=== PATIENT | male | born 1965 | race African-American/Black ===

== ENCOUNTER 2023-01-29 17:30 | Inpatient (IN) | payer MEDICARE, MEDICAID, SELFPAY ==
--- NOTE | ~2023-01-29 | CT_ITS ---
EXAMINATION: CTA CHEST PE STUDY, CT ABDOMEN AND PELVIS CLINICAL INFORMATION: Abdominal pain GI bleeding. + dimer cp COMPARISON: No pertinent prior studies are available for comparison. TECHNIQUE: Prior to contrast administration, noncontrast localization images were obtained. After the administration of 100 mL of Omnipaque nonionic IV contrast, contiguous thin slice helical images were obtained through the thorax. Following this the examination was continued through the abdomen and then pelvis. Reformatted MIP images in the coronal and sagittal planes as well as thin slice reformatted images of coronal and sagittal planes were obtained at the acquisition workstation. This CT examination was performed using dose optimization techniques as appropriate, variously including the following: *Automated exposure control *Adjustment of mA and/or kV according to patient size (this includes techniques or standardized protocols for targeted exams where dose is matched to indication/reason for exam; i.e. extremities or head) *Use of iterative reconstruction technique DLP: 684 mGy-cm. FINDINGS: CHEST: The bolus timing on this study was suboptimal for visualization of the pulmonary arterial tree. Despite the limitation of the contrast bolus timing, there was no central intraluminal pulmonary arterial filling defects present to suggest central pulmonary embolism. The branch vessels are unable to be delineated adequately on the study and remain indeterminate The lungs are clear. No abnormal pulmonary nodules or masses are appreciated. No significant hilar or mediastinal adenopathy. There is no evidence of pleural effusion or pneumothorax. The heart is normal in size. No evidence of ventricular septal bowing or right heart strain. The mediastinum and great vessels are normal. There is no pericardial effusion or pericardial thickening. Bilateral gynecomastia noted. ABDOMEN/PELVIS: Liver, Gallbladder and Biliary Tree: Diffuse fatty infiltration of the liver but no focal hepatic lesion nor biliary ductal dilatation. The gallbladder is unremarkable with no evidence of radiopaque gallstones, gallbladder wall thickening, or obvious pericholecystic inflammatory changes. Pancreas: Unremarkable. Spleen: Unremarkable. Adrenal Glands: Unremarkable. Kidneys and Ureters: The kidneys are normal in size, shape, and attenuation. No hydronephrosis, hydroureter, or calculi seen. No perinephric stranding. Bladder: Unremarkable. Gastrointestinal Tract: Although decompressed, there is a suggestion of colonic wall thickening diffusely from the rectum to the ascending colon. Infectious or inflammatory colitis would be favored. There is scattered diverticulosis but no obvious focal diverticulitis. Visualized small bowel is grossly unremarkable. Normal-appearing appendix in the right lower quadrant. Abdominal Wall: No significant hernia is appreciated. Lymphovascular Structures: Mild vascular calcification in the aorta. No bulky adenopathy Pelvic Viscera: Unremarkable. Osseous Structures: Marked degenerative changes in the hips. Multilevel degenerative changes in the spine. CT/CT abdomen pelvis w IV con IMPRESSION: 1. Although decompressed, there is a suggestion of diffuse colonic wall thickening from the rectum to the ascending colon. Infectious or inflammatory colitis would be favored. 2. Diverticulosis but no obvious diverticulitis. 3. Significantly fatty infiltrated liver. 4. Limited evaluation of the pulmonary arterial tree due to the suboptimal bolus timing. Despite this limitation, there is no central pulmonary emboli seen. Peripheral branches are not able to be assessed. VTE: Negative
--- NOTE | ~2023-01-29 | XR_ITS ---
EXAMINATION: PORTABLE CHEST 1 VIEW CLINICAL INFORMATION: chest pain . COMPARISON: No recent pertinent prior studies are available for comparison. TECHNIQUE: Portable frontal view of the chest was obtained. FINDINGS: The lungs are well expanded. No focal infiltrate, effusion, edema, or pneumothorax. Cardiac and mediastinal silhouettes are within normal limits for technique. No acute bony abnormality seen. XR/XR chest 1V IMPRESSION: No evidence of acute disease.
--- NOTE | 2023-01-29 17:33 | ED_ITS ---
HPI - Chest Pain General Chief Complaint: General Medical <AVLEINO Alford - Last Filed: 01/29/23 17:41> Stated Complaint: chest pain/ sob <AVELINO Alford - Last Filed: 01/29/23 17:41> Time Seen by Provider: 01/29/23 17:33 <AVELINO Alford - Last Filed: 01/29/23 17:41> Source: patient and family <AVELINO Robles - Last Filed: 01/29/23 22:29> Mode of arrival: ambulatory <AVELINO Robles - Last Filed: 01/29/23 22:29> Limitations: no limitations <AVELINO Robles - Last Filed: 01/29/23 22:29> History of Present Illness HPI narrative: This is a 57-year-old male presenting to the emergency department multiple complaints patient complains of tremors, chest pain, shortness of breath, fatigue, malaise, body aches and pains, acute alcohol intoxication and blood in stool. Patient tells me he is having substernal nonradiating intermittent chest pain he me the stabbing pain, at times movement makes it better however other times nothing makes it better. Patient reports associated shortness of breath both at rest and with exertion. He tells me he is having diffuse body aches and pains and he is also shaking. Patient tells me that he has been drinking a lot lately he tells me he drinks 10 mixed drinks a day, last drink just prior to arrival, no history of alcohol withdrawal or delirium tremens. Also tells me that he has noticed bright red blood per rectum wipes to him before. Past call ago and unremarkable. Patient tells me he is drinking because it helps him feel better. Denies suicidal and homicidal ideation. Patient denies fevers, chills, nausea vomiting, abdominal pain, headache, vision changes, dizziness and weakness. <AVELINO Robles Last Filed: 01/29/23 22:29> Related Data Allergies/Adverse Reactions: Allergies Allergy/AdvReac Type Severity Reaction Status Date / Time No Known Allergies Allergy Verified 01/29/23 17:33 <AVELINO Alford - Last Filed: 01/29/23 17:41> Review of Systems Review of Systems: Constitutional : No Weight loss, No Fever, No Chills, + Fatigue, + Malaise ENT/Mouth : No sore throat, No Rhinorrhea Eyes: No Eye Pain, No Swelling, No Redness Cardiovascular : + Chest Pain, + SOB, + Dyspnea on Exertion, No Orthopnea, No Edema, No Palpitations Respiratory : No Cough, No Sputum, No Wheezing Gastrointestinal : No Nausea, No Vomiting, No Diarrhea, No Constipation, No abdominal Pain, No Hematochezia, No Melena Genitourinary : No Dysuria, No Urinary Frequency, No Hematuria, + blood in stool Musculoskeletal : No joint pain, + Myalgias, No Joint Swelling Skin : No Skin Lesions, No rash Neuro : No Weakness, No Numbness, No Dizziness, No Headache Psych : No Anxiety/Panic, No Depression All other systems reviewed and are negative <AVELINO Robles - Last Filed: 01/29/23 22:29> Yes all other systems are reviewed and are negative <AVELINO Robles - Last Filed: 01/29/23 22:29> [facility] Past Medical History Attestation statement: The following information was validated with the patient. <AVELINO Robles - Last Filed: 01/29/23 22:29> Source: old records reviewed and nursing notes reviewed <AVELINO Robles - Last Filed: 01/29/23 22:29> Social History Social History: Social History Alcohol intake: current Alcohol intake frequency: 3 or more drinks per day Alcohol type: hard liquor Smoked in Last 30 Days: No Use of substances other than those prescribed or required for medical reasons: Yes Substance Use Type: Marijuana Substance Use Frequency: Chronic Longstanding Advance Directives: No Advance Directives Information Provided: Yes <AVELINO Alford - Last Filed: 01/29/23 17:41> Physical Exam Vital Signs: Vital Signs: Last Vital Signs Temp 98.1 F 01/29/23 17:34 Pulse 105 H 01/29/23 17:34 Resp 18 01/29/23 17:34 BP 173/108 H 01/29/23 17:34 Pulse Ox 98 01/29/23 17:34 O2 Del Method 01/29/23 17:34 BMI result Body Mass Index 26.0 <AVELINO Alford - Last Filed: 01/29/23 17:41> Vital Signs: Last Vital Signs Temp 98.1 F 01/29/23 17:34 Pulse 105 H 01/29/23 17:34 Resp 18 01/29/23 17:34 BP 173/108 H 01/29/23 17:34 Pulse Ox 98 01/29/23 17:34 O2 Del Method 01/29/23 17:34 BMI result Body Mass Index 26.0 vss <AVELINO Robles - Last Filed: 01/29/23 22:29> Appearance: Alert.? Oriented X3.? No acute distress.? Patient anxious and mild diaphoresis. Head: Normocephalic, atraumatic, no step-offs or deformities Eyes: Pupils equal, round and reactive to light.? ENT: Pharynx normal.? Tongue fasciculations noted. Neck: Normal inspection.? Neck supple.? CVS: Rapid rate normal rhythm likely sinus tachycardia? Pulses normal.? Respiratory: No respiratory distress.? Breath sounds normal.? Abdomen: Soft and nontender.? Skin: Skin warm and dry.? Normal skin color.? Normal skin turgor.? Extremities: No lower extremity edema.? No calf ttp. 5/5 strength to bilateral upper and lower extremities tremor stopper and lower extremities. Rectal: loose brown stool in rectal vault unable to appreciate internal or external hemorrhoids. No gauri blood noted on [facility] Neuro: Oriented X 3.? No motor deficit.? No sensory deficit. CN 2-12 intact <AVELINO Robles - Last Filed: 01/29/23 22:29> Course Course Course Narrative: RME - 57 yo male with history of alcohol abuse (about 15 gin drinks per day), history of ETOH withdrawal, HTN, DM who presents to the ER for evaluation of intermittent central non-radiating chest pains x1 week, generalized weakness x1-2 weeks and blood in his stool on/off for a long time. Drank alcohol today to try to make his chest pain better. Was vomiting today as well. Hasn't eaten in 1-2 days. Also endorses as SOB. Hypertensive and tachycardic in triage. Plan: EKG, CXR, labs, coags <AVELINO Alford - Last Filed: 01/29/23 17:41> Reevaluation(s) Reevaluation #1: CBC with a normocytic anemia. Troponin 10.6 EKG nonischemic however demonstrating a prolonged QT, unlikely ACS. BNP within normal limits. Ethanol level 120. Chest x-ray without evidence of acute disease. Flu COVID RSV negative. OBS positive. Patient's CIWA 6 after Ativan. Chemistry, UA and D- dimer pending. <AVELINO Robles - Last Filed: 01/29/23 22:29> Time: 19:46 <AVELINO Robles - Last Filed: 01/29/23 22:29> Reevaluation #2: Chemistry with low potassium 3.0 will give oral potassium at this time. Patient is noted to have elevated anion gap likely secondary to ethanol. Total bilirubin 1.3, obtain CT of the abdomen and pelvis. Transaminases elevated likely secondary to ethanol. Troponin not meeting delta criteria, EKG nonischemic unlikely ACS. CTA limited secondary to suboptimal bolus timing however no signs of large centralized PE, low suspicion for PE in general. Diverticulosis but no diverticulitis. Fatty infiltrated liver noted. Diffuse colonic wall thickening from the rectum to the ascending colon. I do not suspect inflammatory or infectious colitis however. Patient not tender to palpation of abdomen. Discuss this case with hospitalist who will admit patient <AVELINO Robles - Last Filed: 01/29/23 22:29> Time: 22:27 <AVELINO Robles - Last Filed: 01/29/23 22:29> Medications Administered Generic Name Dose Route Start Last Admin Trade Name Freq PRN Reason Stop Dose Admin Folic Acid 1 mg 01/29/23 21:15 01/29/23 21:10 Folic Acid 1 Mg Tablet PO 02/01/23 21:14 1 mg DAILY JACKIE Administration Lactated Ringer's 1,000 mls @ 100 mls/hr 01/29/23 21:15 01/29/23 21:39 Lr IVCONT 100 mls/hr .Q10H JACKIE Administration Multivitamins/Vitamin C 1 tab 01/29/23 21:15 01/29/23 21:10 Multivitamin Tablet PO 02/01/23 21:14 1 tab DAILY JACKIE Administration Pantoprazole Sodium 40 mg 01/29/23 21:05 01/29/23 21:39 Pantoprazole Sodium 40 Mg/10 Ml Vial IVPUSH 40 mg BID@0630,1630 JACKIE Administration Thiamine HCl 100 mg 01/29/23 21:15 01/29/23 21:10 Thiamine Hcl 100 Mg Tablet PO 02/01/23 21:14 100 mg DAILY JACKIE Administration Discontinued Medications Generic Name Dose Route Start Last Admin Trade Name Margarita PRN Reason Stop Dose Admin Iohexol 100 ml 01/29/23 21:30 01/29/23 21:30 Iohexol 350 Mg/Ml 100 Ml Infus..Btl IV 01/29/23 21:31 85 ml ONCE ONE Administration Iohexol 100 ml 01/29/23 21:40 01/29/23 21:41 Iohexol 350 Mg/Ml 100 Ml Infus..Btl IV 01/29/23 21:41 85 ml ONCE ONE Administration Lorazepam 1 mg 01/29/23 18:36 01/29/23 18:47 Lorazepam 1 Mg Tablet PO 01/29/23 18:37 1 mg ONCE ONE Administration Phenobarbital Sodium 255 mg 01/29/23 20:15 01/29/23 20:42 Phenobarbital Sodium 130 Mg/Ml Im Once IM 01/29/23 20:16 255 mg ONCE ONE Administration <AVELINO Alford - Last Filed: 01/29/23 17:41> Medications Administered Generic Name Dose Route Start Last Admin Trade Name Margarita PRN Reason Stop Dose Admin Folic Acid 1 mg 01/29/23 21:15 01/29/23 21:10 Folic Acid 1 Mg Tablet PO 02/01/23 21:14 1 mg DAILY JACKIE Administration Lactated Ringer's 1,000 mls @ 100 mls/hr 01/29/23 21:15 01/29/23 21:39 Lr IVCONT 100 mls/hr .Q10H JACKIE Administration Multivitamins/Vitamin C 1 tab 01/29/23 21:15 01/29/23 21:10 Multivitamin Tablet PO 02/01/23 21:14 1 tab DAILY JACKIE Administration Pantoprazole Sodium 40 mg 01/29/23 21:05 01/29/23 21:39 Pantoprazole Sodium 40 Mg/10 Ml Vial IVPUSH 40 mg BID@0630,1630 JACKIE Administration Thiamine HCl 100 mg 01/29/23 21:15 01/29/23 21:10 Thiamine Hcl 100 Mg Tablet PO 02/01/23 21:14 100 mg DAILY JACKIE Administration Discontinued Medications Generic Name Dose Route Start Last Admin Trade Name Margarita PRN Reason Stop Dose Admin Iohexol 100 ml 01/29/23 21:30 01/29/23 21:30 Iohexol 350 Mg/Ml 100 Ml Infus..Btl IV 01/29/23 21:31 85 ml ONCE ONE Administration Iohexol 100 ml 01/29/23 21:40 01/29/23 21:41 Iohexol 350 Mg/Ml 100 Ml Infus..Btl IV 01/29/23 21:41 85 ml ONCE ONE Administration Lorazepam 1 mg 01/29/23 18:36 01/29/23 18:47 Lorazepam 1 Mg Tablet PO 01/29/23 18:37 1 mg ONCE ONE Administration Phenobarbital Sodium 255 mg 01/29/23 20:15 01/29/23 20:42 Phenobarbital Sodium 130 Mg/Ml Im Once IM 01/29/23 20:16 255 mg ONCE ONE Administration <AVELINO Robles - Last Filed: 01/29/23 22:29> Medical Decision Making Medical Decision Making [facility] Narrative: 1835 57-year-old male presents with fatigue, malaise, myalgias, chest pain, shortness of breath, rectal bleeding, acute alcohol intoxication. Physical exam with upper extremity tremors, tongue fasciculations. Rapid regular rhythm likely sinus tachycardia. Breath sounds clear. Abdomen soft nontender nondistended. Neuro nonfocal CIWA-9 Likely acute alcohol withdrawal. Unlikely ACS, PE however will rule out. Will also rule out polysubstance abuse. Will rule out lower GI bleed. No signs of acute abdomen. Plan at this time labs, OBS, imaging, ethanol, POWELL. <AVELINO Robles Last Filed: 01/29/23 22:29> Differential Diagnosis Differential Diagnoses: The differential diagnosis associated with the presentation includes <AVELINO Robles Last Filed: 01/29/23 22:29> Likely acute alcohol withdrawal. Unlikely ACS, PE however will rule out. Will also rule out polysubstance abuse. Will rule out lower GI bleed. No signs of acute abdomen. <AVELINO Robles - Last Filed: 01/29/23 22:29> Admission/Observation Consideration of admission/observation: Escalation of care including admission/observation considered <AVELINO Robles - Last Filed: 01/29/23 22:29> Likely <AVELINO Robles - Last Filed: 01/29/23 22:29> Consult Healthcare Provider Management of the patient was discussed with: Hospitalist (Dr. Solares) <AVELINO Robles - Last Filed: 01/29/23 22:29> Lab Data MDM Lab Attestation statement: I reviewed the patient's lab results. <AVELINO Robles - Last Filed: 01/29/23 22:29> Result Diagrams: 01/29/23 18:14 01/29/23 18:14 <AVELINO Alford - Last Filed: 01/29/23 17:41> Labs: Lab Results 01/29/23 01/29/23 01/29/23 Range/Units 18:14 18:14 18:14 WBC 6.6 (4.8-10.8) X10*3/uL RBC 3.90 L (4.60-5.80) X10*6/uL Hgb 13.0 L (14.0-18.0) g/dl Hct 38.0 L (42.0-52.0) % MCV 97.4 (80.0-98.0) fL MCH 33.3 H (27.0-33.0) pg MCHC 34.2 (31.0-36.0) g/dl RDW 14.2 (11.0-16.0) % Plt Count 156 L (160-400) X10*3/uL MPV 9.9 (9.4-12.4) fL Immature Gran % (Auto) 0.5 H (0.0-0.4) % Neut % (Auto) 79.8 H (45-73) % Lymph % (Auto) 12.8 L (20-40) % [place] % (Auto) 6.3 (2-11) % Eos % (Auto) 0.3 (0-4) % Baso % (Auto) 0.3 (0-2) % Lymph # (Auto) 0.9 L (1.2-4.9) X10*3/uL [place] # (Auto) 0.4 (0.1-1.2) X10*3/uL Eos # (Auto) 0.0 (0.0-0.4) X10*3/uL Baso # (Auto) 0.0 (0.0-0.2) X10*3/uL Abs Immat Gran (auto) 0.03 (0.00-0.03) X10*3/uL Absolute Neuts (auto) 5.3 (2.0-8.3) x10*3/uL Absolute Nucleated RBC 0.020 H (0.0-0.012) X10*3/uL Nucleated RBC % (auto) 0.3 H (0.0-0.2) /100WBC PT 10.6 (10.0-13.1) SEC INR 0.9 (0.9-1.1) APTT 33.0 (26.0-36.4) SEC D-Dimer High Sensitivty 603 NG/ML Sodium (135-145) mmol/L Potassium (3.3-5.1) mmol/L Chloride (96-108) mmol/L Carbon Dioxide (22-29) mmol/L Anion Gap (12-20) BUN (9-16) mg/dL Creatinine (0.5-1.4) mg/dL Estim Creat Clear Calc Estimated GFR POC Glucose (60-115) mg/dL Random Glucose (60-115) mg/dL Calcium (8.4-10.2) mg/dL Magnesium (1.6-2.6) mg/dL Total Bilirubin (0.0-1.0) mg/dL Direct Bilirubin (0.0-0.5) mg/dL AST (5-37) U/L ALT (0-40) U/L Alkaline Phosphatase (39-117) U/L Total Creatine Kinase (38-174) U/L Troponin I High Sens 10.6 (<3.5-35.0) ng/L B-Natriuretic Peptide (<100) pg/mL Total Protein (6.5-8.0) g/dL Albumin (3.5-5.0) g/dL Lipase (8-78) U/L TSH (0.32-4.0) uIU/mL Stool Occult Blood (NEGATIVE) Ethyl Alcohol mg/dL Influenza Type A (PCR) (Negative) Influenza Type B (PCR) (Negative) RSV RNA Qual (PCR) (Negative) SARS-CoV-2 RNA (RT-PCR) (Negative) 01/29/23 01/29/23 01/29/23 Range/Units 18:14 18:14 18:14 WBC (4.8-10.8) X10*3/uL RBC (4.60-5.80) X10*6/uL Hgb (14.0-18.0) g/dl Hct (42.0-52.0) % MCV (80.0-98.0) fL MCH (27.0-33.0) pg MCHC (31.0-36.0) g/dl RDW (11.0-16.0) % Plt Count (160-400) X10*3/uL MPV (9.4-12.4) fL Immature Gran % (Auto) (0.0-0.4) % Neut % (Auto) (45-73) % Lymph % (Auto) (20-40) % [place] % (Auto) (2-11) % Eos % (Auto) (0-4) % Baso % (Auto) (0-2) % Lymph # (Auto) (1.2-4.9) X10*3/uL [place] # (Auto) (0.1-1.2) X10*3/uL Eos # (Auto) (0.0-0.4) X10*3/uL Baso # (Auto) (0.0-0.2) X10*3/uL Abs Immat Gran (auto) (0.00-0.03) X10*3/uL Absolute Neuts (auto) (2.0-8.3) x10*3/uL Absolute Nucleated RBC (0.0-0.012) X10*3/uL Nucleated RBC % (auto) (0.0-0.2) /100WBC PT (10.0-13.1) SEC INR (0.9-1.1) APTT Cancelled (26.0-36.4) SEC D-Dimer High Sensitivty NG/ML Sodium (135-145) mmol/L Potassium (3.3-5.1) mmol/L Chloride (96-108) mmol/L Carbon Dioxide (22-29) mmol/L Anion Gap (12-20) BUN (9-16) mg/dL Creatinine (0.5-1.4) mg/dL Estim Creat Clear Calc Estimated GFR POC Glucose (60-115) mg/dL Random Glucose (60-115) mg/dL Calcium (8.4-10.2) mg/dL Magnesium (1.6-2.6) mg/dL Total Bilirubin (0.0-1.0) mg/dL Direct Bilirubin (0.0-0.5) mg/dL AST (5-37) U/L ALT (0-40) U/L Alkaline Phosphatase (39-117) U/L Total Creatine Kinase (38-174) U/L Troponin I High Sens (<3.5-35.0) ng/L B-Natriuretic Peptide < 10 (<100) pg/mL Total Protein (6.5-8.0) g/dL Albumin (3.5-5.0) g/dL Lipase (8-78) U/L TSH 1.33 (0.32-4.0) uIU/mL Stool Occult Blood (NEGATIVE) Ethyl Alcohol 120 mg/dL Influenza Type A (PCR) (Negative) Influenza Type B (PCR) (Negative) RSV RNA Qual (PCR) (Negative) SARS-CoV-2 RNA (RT-PCR) (Negative) 01/29/23 01/29/23 01/29/23 Range/Units 18:14 18:26 19:19 WBC (4.8-10.8) X10*3/uL RBC (4.60-5.80) X10*6/uL Hgb (14.0-18.0) g/dl Hct (42.0-52.0) % MCV (80.0-98.0) fL MCH (27.0-33.0) pg MCHC (31.0-36.0) g/dl RDW (11.0-16.0) % Plt Count (160-400) X10*3/uL MPV (9.4-12.4) fL Immature Gran % (Auto) (0.0-0.4) % Neut % (Auto) (45-73) % Lymph % (Auto) (20-40) % [place] % (Auto) (2-11) % Eos % (Auto) (0-4) % Baso % (Auto) (0-2) % Lymph # (Auto) (1.2-4.9) X10*3/uL [place] # (Auto) (0.1-1.2) X10*3/uL Eos # (Auto) (0.0-0.4) X10*3/uL Baso # (Auto) (0.0-0.2) X10*3/uL Abs Immat Gran (auto) (0.00-0.03) X10*3/uL Absolute Neuts (auto) (2.0-8.3) x10*3/uL Absolute Nucleated RBC (0.0-0.012) X10*3/uL Nucleated RBC % (auto) (0.0-0.2) /100WBC PT (10.0-13.1) SEC INR (0.9-1.1) APTT (26.0-36.4) SEC D-Dimer High Sensitivty NG/ML Sodium 141 (135-145) mmol/L Potassium 3.0 L (3.3-5.1) mmol/L Chloride 90 L (96-108) mmol/L Carbon Dioxide 15 L (22-29) mmol/L Anion Gap 39 H (12-20) BUN 12 (9-16) mg/dL Creatinine 0.87 (0.5-1.4) mg/dL Estim Creat Clear Calc 83.5 Estimated GFR > 60 POC Glucose (60-115) mg/dL Random Glucose 83 (60-115) mg/dL Calcium 9.0 (8.4-10.2) mg/dL Magnesium 2.0 (1.6-2.6) mg/dL Total Bilirubin 1.3 H (0.0-1.0) mg/dL Direct Bilirubin 0.5 (0.0-0.5) mg/dL AST 201 H (5-37) U/L ALT 78 H (0-40) U/L Alkaline Phosphatase 145 H (39-117) U/L Total Creatine Kinase 158 (38-174) U/L Troponin I High Sens (<3.5-35.0) ng/L B-Natriuretic Peptide (<100) pg/mL Total Protein 7.9 (6.5-8.0) g/dL Albumin 4.8 (3.5-5.0) g/dL Lipase 30 (8-78) U/L TSH (0.32-4.0) uIU/mL Stool Occult Blood POSITIVE (NEGATIVE) Ethyl Alcohol mg/dL Influenza Type A (PCR) NEGATIVE (Negative) Influenza Type B (PCR) NEGATIVE (Negative) RSV RNA Qual (PCR) NEGATIVE (Negative) SARS-CoV-2 RNA (RT-PCR) NEGATIVE (Negative) 01/29/23 01/29/23 Range/Units 19:19 21:37 WBC (4.8-10.8) X10*3/uL RBC (4.60-5.80) X10*6/uL Hgb (14.0-18.0) g/dl Hct (42.0-52.0) % MCV (80.0-98.0) fL MCH (27.0-33.0) pg MCHC (31.0-36.0) g/dl RDW (11.0-16.0) % Plt Count (160-400) X10*3/uL MPV (9.4-12.4) fL Immature Gran % (Auto) (0.0-0.4) % Neut % (Auto) (45-73) % Lymph % (Auto) (20-40) % [place] % (Auto) (2-11) % Eos % (Auto) (0-4) % Baso % (Auto) (0-2) % Lymph # (Auto) (1.2-4.9) X10*3/uL [place] # (Auto) (0.1-1.2) X10*3/uL Eos # (Auto) (0.0-0.4) X10*3/uL Baso # (Auto) (0.0-0.2) X10*3/uL Abs Immat Gran (auto) (0.00-0.03) X10*3/uL Absolute Neuts (auto) (2.0-8.3) x10*3/uL Absolute Nucleated RBC (0.0-0.012) X10*3/uL Nucleated RBC % (auto) (0.0-0.2) /100WBC PT (10.0-13.1) SEC INR (0.9-1.1) APTT (26.0-36.4) SEC D-Dimer High Sensitivty NG/ML Sodium (135-145) mmol/L Potassium (3.3-5.1) mmol/L Chloride (96-108) mmol/L Carbon Dioxide (22-29) mmol/L Anion Gap (12-20) BUN (9-16) mg/dL Creatinine (0.5-1.4) mg/dL Estim Creat Clear Calc Estimated GFR POC Glucose 138 H (60-115) mg/dL Random Glucose (60-115) mg/dL Calcium (8.4-10.2) mg/dL Magnesium (1.6-2.6) mg/dL Total Bilirubin (0.0-1.0) mg/dL Direct Bilirubin (0.0-0.5) mg/dL AST (5-37) U/L ALT (0-40) U/L Alkaline Phosphatase (39-117) U/L Total Creatine Kinase (38-174) U/L Troponin I High Sens 11.9 (<3.5-35.0) ng/L B-Natriuretic Peptide (<100) pg/mL Total Protein (6.5-8.0) g/dL Albumin (3.5-5.0) g/dL Lipase (8-78) U/L TSH (0.32-4.0) uIU/mL Stool Occult Blood (NEGATIVE) Ethyl Alcohol mg/dL Influenza Type A (PCR) (Negative) Influenza Type B (PCR) (Negative) RSV RNA Qual (PCR) (Negative) SARS-CoV-2 RNA (RT-PCR) (Negative) <AVELINO Alford - Last Filed: 01/29/23 17:41> Lab Results 01/29/23 01/29/23 01/29/23 Range/Units 18:14 18:14 18:14 WBC 6.6 (4.8-10.8) X10*3/uL RBC 3.90 L (4.60-5.80) X10*6/uL Hgb 13.0 L (14.0-18.0) g/dl Hct 38.0 L (42.0-52.0) % MCV 97.4 (80.0-98.0) fL MCH 33.3 H (27.0-33.0) pg MCHC 34.2 (31.0-36.0) g/dl RDW 14.2 (11.0-16.0) % Plt Count 156 L (160-400) X10*3/uL MPV 9.9 (9.4-12.4) fL Immature Gran % (Auto) 0.5 H (0.0-0.4) % Neut % (Auto) 79.8 H (45-73) % Lymph % (Auto) 12.8 L (20-40) % [place] % (Auto) 6.3 (2-11) % Eos % (Auto) 0.3 (0-4) % Baso % (Auto) 0.3 (0-2) % Lymph # (Auto) 0.9 L (1.2-4.9) X10*3/uL [place] # (Auto) 0.4 (0.1-1.2) X10*3/uL Eos # (Auto) 0.0 (0.0-0.4) X10*3/uL Baso # (Auto) 0.0 (0.0-0.2) X10*3/uL Abs Immat Gran (auto) 0.03 (0.00-0.03) X10*3/uL Absolute Neuts (auto) 5.3 (2.0-8.3) x10*3/uL Absolute Nucleated RBC 0.020 H (0.0-0.012) X10*3/uL Nucleated RBC % (auto) 0.3 H (0.0-0.2) /100WBC PT 10.6 (10.0-13.1) SEC INR 0.9 (0.9-1.1) APTT 33.0 (26.0-36.4) SEC D-Dimer High Sensitivty 603 NG/ML Sodium (135-145) mmol/L Potassium (3.3-5.1) mmol/L Chloride (96-108) mmol/L Carbon Dioxide (22-29) mmol/L Anion Gap (12-20) BUN (9-16) mg/dL Creatinine (0.5-1.4) mg/dL Estim Creat Clear Calc Estimated GFR POC Glucose (60-115) mg/dL Random Glucose (60-115) mg/dL Calcium (8.4-10.2) mg/dL Magnesium (1.6-2.6) mg/dL Total Bilirubin (0.0-1.0) mg/dL Direct Bilirubin (0.0-0.5) mg/dL AST (5-37) U/L ALT (0-40) U/L Alkaline Phosphatase (39-117) U/L Total Creatine Kinase (38-174) U/L Troponin I High Sens 10.6 (<3.5-35.0) ng/L B-Natriuretic Peptide (<100) pg/mL Total Protein (6.5-8.0) g/dL Albumin (3.5-5.0) g/dL Lipase (8-78) U/L TSH (0.32-4.0) uIU/mL Stool Occult Blood (NEGATIVE) Ethyl Alcohol mg/dL Influenza Type A (PCR) (Negative) Influenza Type B (PCR) (Negative) RSV RNA Qual (PCR) (Negative) SARS-CoV-2 RNA (RT-PCR) (Negative) 01/29/23 01/29/23 01/29/23 Range/Units 18:14 18:14 18:14 WBC (4.8-10.8) X10*3/uL RBC (4.60-5.80) X10*6/uL Hgb (14.0-18.0) g/dl Hct (42.0-52.0) % MCV (80.0-98.0) fL MCH (27.0-33.0) pg MCHC (31.0-36.0) g/dl RDW (11.0-16.0) % Plt Count (160-400) X10*3/uL MPV (9.4-12.4) fL Immature Gran % (Auto) (0.0-0.4) % Neut % (Auto) (45-73) % Lymph % (Auto) (20-40) % [place] % (Auto) (2-11) % Eos % (Auto) (0-4) % Baso % (Auto) (0-2) % Lymph # (Auto) (1.2-4.9) X10*3/uL [place] # (Auto) (0.1-1.2) X10*3/uL Eos # (Auto) (0.0-0.4) X10*3/uL Baso # (Auto) (0.0-0.2) X10*3/uL Abs Immat Gran (auto) (0.00-0.03) X10*3/uL Absolute Neuts (auto) (2.0-8.3) x10*3/uL Absolute Nucleated RBC (0.0-0.012) X10*3/uL Nucleated RBC % (auto) (0.0-0.2) /100WBC PT (10.0-13.1) SEC INR (0.9-1.1) APTT Cancelled (26.0-36.4) SEC D-Dimer High Sensitivty NG/ML Sodium (135-145) mmol/L Potassium (3.3-5.1) mmol/L Chloride (96-108) mmol/L Carbon Dioxide (22-29) mmol/L Anion Gap (12-20) BUN (9-16) mg/dL Creatinine (0.5-1.4) mg/dL Estim Creat Clear Calc Estimated GFR POC Glucose (60-115) mg/dL Random Glucose (60-115) mg/dL Calcium (8.4-10.2) mg/dL Magnesium (1.6-2.6) mg/dL Total Bilirubin (0.0-1.0) mg/dL Direct Bilirubin (0.0-0.5) mg/dL AST (5-37) U/L ALT (0-40) U/L Alkaline Phosphatase (39-117) U/L Total Creatine Kinase (38-174) U/L Troponin I High Sens (<3.5-35.0) ng/L B-Natriuretic Peptide < 10 (<100) pg/mL Total Protein (6.5-8.0) g/dL Albumin (3.5-5.0) g/dL Lipase (8-78) U/L TSH 1.33 (0.32-4.0) uIU/mL Stool Occult Blood (NEGATIVE) Ethyl Alcohol 120 mg/dL Influenza Type A (PCR) (Negative) Influenza Type B (PCR) (Negative) RSV RNA Qual (PCR) (Negative) SARS-CoV-2 RNA (RT-PCR) (Negative) 01/29/23 01/29/23 01/29/23 Range/Units 18:14 18:26 19:19 WBC (4.8-10.8) X10*3/uL RBC (4.60-5.80) X10*6/uL Hgb (14.0-18.0) g/dl Hct (42.0-52.0) % MCV (80.0-98.0) fL MCH (27.0-33.0) pg MCHC (31.0-36.0) g/dl RDW (11.0-16.0) % Plt Count (160-400) X10*3/uL MPV (9.4-12.4) fL Immature Gran % (Auto) (0.0-0.4) % Neut % (Auto) (45-73) % Lymph % (Auto) (20-40) % [place] % (Auto) (2-11) % Eos % (Auto) (0-4) % Baso % (Auto) (0-2) % Lymph # (Auto) (1.2-4.9) X10*3/uL [place] # (Auto) (0.1-1.2) X10*3/uL Eos # (Auto) (0.0-0.4) X10*3/uL Baso # (Auto) (0.0-0.2) X10*3/uL Abs Immat Gran (auto) (0.00-0.03) X10*3/uL Absolute Neuts (auto) (2.0-8.3) x10*3/uL Absolute Nucleated RBC (0.0-0.012) X10*3/uL Nucleated RBC % (auto) (0.0-0.2) /100WBC PT (10.0-13.1) SEC INR (0.9-1.1) APTT (26.0-36.4) SEC D-Dimer High Sensitivty NG/ML Sodium 141 (135-145) mmol/L Potassium 3.0 L (3.3-5.1) mmol/L Chloride 90 L (96-108) mmol/L Carbon Dioxide 15 L (22-29) mmol/L Anion Gap 39 H (12-20) BUN 12 (9-16) mg/dL Creatinine 0.87 (0.5-1.4) mg/dL Estim Creat Clear Calc 83.5 Estimated GFR > 60 POC Glucose (60-115) mg/dL Random Glucose 83 (60-115) mg/dL Calcium 9.0 (8.4-10.2) mg/dL Magnesium 2.0 (1.6-2.6) mg/dL Total Bilirubin 1.3 H (0.0-1.0) mg/dL Direct Bilirubin 0.5 (0.0-0.5) mg/dL AST 201 H (5-37) U/L ALT 78 H (0-40) U/L Alkaline Phosphatase 145 H (39-117) U/L Total Creatine Kinase 158 (38-174) U/L Troponin I High Sens (<3.5-35.0) ng/L B-Natriuretic Peptide (<100) pg/mL Total Protein 7.9 (6.5-8.0) g/dL Albumin 4.8 (3.5-5.0) g/dL Lipase 30 (8-78) U/L TSH (0.32-4.0) uIU/mL Stool Occult Blood POSITIVE (NEGATIVE) Ethyl Alcohol mg/dL Influenza Type A (PCR) NEGATIVE (Negative) Influenza Type B (PCR) NEGATIVE (Negative) RSV RNA Qual (PCR) NEGATIVE (Negative) SARS-CoV-2 RNA (RT-PCR) NEGATIVE (Negative) 01/29/23 01/29/23 Range/Units 19:19 21:37 WBC (4.8-10.8) X10*3/uL RBC (4.60-5.80) X10*6/uL Hgb (14.0-18.0) g/dl Hct (42.0-52.0) % MCV (80.0-98.0) fL MCH (27.0-33.0) pg MCHC (31.0-36.0) g/dl RDW (11.0-16.0) % Plt Count (160-400) X10*3/uL MPV (9.4-12.4) fL Immature Gran % (Auto) (0.0-0.4) % Neut % (Auto) (45-73) % Lymph % (Auto) (20-40) % [place] % (Auto) (2-11) % Eos % (Auto) (0-4) % Baso % (Auto) (0-2) % Lymph # (Auto) (1.2-4.9) X10*3/uL [place] # (Auto) (0.1-1.2) X10*3/uL Eos # (Auto) (0.0-0.4) X10*3/uL Baso # (Auto) (0.0-0.2) X10*3/uL Abs Immat Gran (auto) (0.00-0.03) X10*3/uL Absolute Neuts (auto) (2.0-8.3) x10*3/uL Absolute Nucleated RBC (0.0-0.012) X10*3/uL Nucleated RBC % (auto) (0.0-0.2) /100WBC PT (10.0-13.1) SEC INR (0.9-1.1) APTT (26.0-36.4) SEC D-Dimer High Sensitivty NG/ML Sodium (135-145) mmol/L Potassium (3.3-5.1) mmol/L Chloride (96-108) mmol/L Carbon Dioxide (22-29) mmol/L Anion Gap (12-20) BUN (9-16) mg/dL Creatinine (0.5-1.4) mg/dL Estim Creat Clear Calc Estimated GFR POC Glucose 138 H (60-115) mg/dL Random Glucose (60-115) mg/dL Calcium (8.4-10.2) mg/dL Magnesium (1.6-2.6) mg/dL Total Bilirubin (0.0-1.0) mg/dL Direct Bilirubin (0.0-0.5) mg/dL AST (5-37) U/L ALT (0-40) U/L Alkaline Phosphatase (39-117) U/L Total Creatine Kinase (38-174) U/L Troponin I High Sens 11.9 (<3.5-35.0) ng/L B-Natriuretic Peptide (<100) pg/mL Total Protein (6.5-8.0) g/dL Albumin (3.5-5.0) g/dL Lipase (8-78) U/L TSH (0.32-4.0) uIU/mL Stool Occult Blood (NEGATIVE) Ethyl Alcohol mg/dL Influenza Type A (PCR) (Negative) Influenza Type B (PCR) (Negative) RSV RNA Qual (PCR) (Negative) SARS-CoV-2 RNA (RT-PCR) (Negative) <AVELINO Robles - Last Filed: 01/29/23 22:29> Independent Interpretation I performed an independent interpretation of an: EKG (Ventricular rate of 95, OK normal, QT/QTC prolonged, QRS normal EKG with normal sinus rhythm no ST elevations or inversions concerning for ischemia.) and Plain X-Ray (XR/XR chest 1V IMPRESSION: No evidence of acute disease. ) <AVELINO Robles - Last Filed: 01/29/23 22:29> Radiology Impression Discussion of test interpretation with radiology: I have reviewed the radiologist's reading. <AVELINO Robles - Last Filed: 01/29/23 22:29> External Record Review External record reviewed: Inpatient record, Office record, Outpatient record, Prior outpatient labs, Prior outpatient radiology, Primary care record and Outside ED record <AVELINO Robles - Last Filed: 01/29/23 22:29> Core Measures AMI core measures followed: Yes <AVELINO Robles - Last Filed: 01/29/23 22:29> Measure exclusions: not indicated <AVELINO Robles - Last Filed: 01/29/23 22:29> Critical Care Time Critical Care Time Critical Care Time: No <AVELINO Robles - Last Filed: 01/29/23 22:29> Discharge Plan Discharge Clinical Impression: Acute lower GI bleeding, Chest pain, Shortness of breath, Alcohol intoxication <AVELINO Alford - Last Filed: 01/29/23 17:41> Patient Disposition: Admitted As Inpatient <AVELINO Alford - Last Filed: 01/29/23 17:41>
[2023-01-29 17:34] VITALS: BP 173/108; PULSE 105; RESP 18; TEMP 36.7; O2SAT 98; BMI 26.0
--- NOTE | 2023-01-29 17:37 | ECG_ITS ---
Test Reason : CHEST PAIN Blood Pressure : / mmHG Vent. Rate : 095 BPM Atrial Rate : 095 BPM P-R Int : 136 ms QRS Dur : 100 ms QT Int : 442 ms P-R-T Axes : 064 005 012 degrees QTc Int : 555 ms Normal sinus rhythm Nonspecific ST-T changes Prolonged QT Abnormal ECG No previous ECGs available Referred By: Guadalupe Forde Electronically Signed By:Edgar Smith
[2023-01-29 18:20] LABS: MANUAL DIFF FLAG NO
[2023-01-29 18:21] LABS: Basophils Percent Auto 0.3 % (0-2); Eosinophils Percent Auto 0.3 % (0-4); Imm Gran Abs Auto 0.03 X10*3/uL (0.00-0.03); Imm Gran Pct Auto 0.5 % (0.0-0.4); Lymphocytes Absolute Auto 0.9 X10*3/uL (1.2-4.9); Lymphocytes Percent Auto 12.8 % (20-40); Mean Corpuscular HGB Conc 34.2 g/dl (31.0-36.0); Mean Corpuscular Hemoglobin 33.3 pg (27.0-33.0); Mean Corpuscular Volume 97.4 fL (80.0-98.0); Mean Platelet Volume 9.9 fL (9.4-12.4); Monocytes Absolute Auto 0.4 X10*3/uL (0.1-1.2); Monocytes Percent Auto 6.3 % (2-11); NRBC Pct Auto 0.3 /100WBC (0.0-0.2); Neutrophils Absolute Auto 5.3 x10*3/uL (2.0-8.3); Neutrophils Percent Auto 79.8 % (45-73); Platelet Count 156 X10*3/uL (160-400); Red Cell Distribution Width 14.2 % (11.0-16.0); White Blood Count 6.6 X10*3/uL (4.8-10.8)
--- NOTE | 2023-01-29 18:22 | PC.NURSE ---
Patient AOx 3 daughter at bedside tremors noted is daily drinker. Denies chest pain currently LS clear no respiratory distress noted. PAtietn able to ambulate with stand by assist weak. No facial droop no drift or slurring of words. IV Access obtained labs collected and sent will [facility]
[2023-01-29 18:28] LABS: INTERNATIONAL NORM RATIO 0.9 (0.9-1.1); Prothrombin Time 10.6 SEC (10.0-13.1)
[2023-01-29 18:35] LABS: OBS Int Ctl Valid YES; OBS1 POSITIVE (NEGATIVE)
[2023-01-29 18:39] LABS: Ethanol 120 mg/dL
[2023-01-29 18:42] LABS: B Type Natriuretic Peptide < 10 pg/mL (<100)
[2023-01-29 18:44] LABS: Troponin-I High Sensitivity 10.6 ng/L (<3.5-35.0)
[2023-01-29] MEDS: LORazepam 1 MG TABLET PO (18:47)
[2023-01-29 18:58] LABS: TSH reflex Free T4 1.33 uIU/mL (0.32-4.0)
[2023-01-29 19:01] LABS: Influenza A PCR NEGATIVE (Negative); Influenza B PCR NEGATIVE (Negative); Resp Syncy Virus RNA Qual PCR NEGATIVE (Negative); SARS COV2 PCR INHOUSE NEGATIVE (Negative)
[2023-01-29 19:46] LABS: Alanine Aminotransferase 78 U/L (0-40); Albumin Level 4.8 g/dL (3.5-5.0); Alkaline Phosphatase 145 U/L (39-117); Anion Gap 39 (12-20); Aspartate Amino Transferase 201 U/L (5-37); Bilirubin Direct 0.5 mg/dL (0.0-0.5); Bilirubin Total 1.3 mg/dL (0.0-1.0); Blood Urea Nitrogen 12 mg/dL (9-16); Carbon Dioxide 15 mmol/L (22-29); Chloride 90 mmol/L (96-108); Creatinine Clr Calc Pharmacy 83.5; Estimated Glomerular Filt Rate > 60; Glucose Random 83 mg/dL (60-115); Lipase 30 U/L (8-78); Sodium 141 mmol/L (135-145); Total Protein 7.9 g/dL (6.5-8.0)
[2023-01-29 19:51] LABS: Troponin-I High Sensitivity 11.9 ng/L (<3.5-35.0)
--- NOTE | 2023-01-29 20:03 | P.HPHOSP_ITS ---
History of Present Illness Date of Service: 01/29/23 Attending physician on admission: Benito Solares Chief Complaint: SOB, tremors Pt is a 57-year-old male with a PMH significant for?HTN, DM, GI ulcers, and alcohol use disorder with previous withdrawal who presents to the ED with?multiple complaints: generalized weakness, tremors, chest pain, SOB, and fatigue. Pt states his symptoms began 2-3 weeks ago when he started experiencing generalized weakness, fatigue, fever, chills, and dizziness. Also been having intermittent central, non-radiating chest pain/pressure and shortness of breath with exertion. Pt states he was sober for a few months prior to this, but feeling so ill caused him to start drinking again. Has been drinking 10-15+ mixed-gin drinks daily, with last drink shortly prior to presentation. Pt claims he came to the ED because a couple of days ago he noticed a large amount of bright red blood when he wiped after having a bowel movement. Denies having a repeat episode since. Patient also has had nausea and vomiting. Daughter is at bedside, notes vomitus this morning looked like coffee-grounds. Pt feeling increased anxiety, though no audio or visual hallucinations. Denies headache, changes to vision. No abdominal pain. Of note, pt says he has a history of GI ul cers, but is not sure where they are located. In the ED patient was afebrile, tachycardic at 105, and hypertensive at 173/108. Labs were significant for mild normocytic anemia of 13.0/38.0 (baseline unknown), potassium 3.0, total bilirubin of 1.3, AST of 201, ALT 78, alk-phos of 145, initial troponin 10.6 with repeat flat at 11.9, D-dimer elevated at 06:03, and BNP negative. Stool positive for occult blood. Patient's alcohol level 120. CXR showed no evidence of acute disease. CTA negative for central pulmonary emboli, but unable to obsess peripheral branches. CTA also showed possible infectious or inflammatory colitis and significant fatty infiltrated liver. EKG demonstrated normal sinus rhythm with a prolonged QTc of 555 with no evidence of ST elevations or depressions. Pt was treated with lorazepam and placed on phenobarb protocol. Pt will be admitted to the hospital on telemetry for treatment and evaluation of acute alcohol withdrawal. Review of Systems Review of Systems: Generalized weakness Shortness of breath Central, non-radiating chest pain Fever, chills Dizziness No audio or visual hallucinations Denies headache, changes to vision No abdominal pain Yes all other systems are reviewed and are negative [facility] Social History Alcohol intake: current Alcohol intake frequency: 3 or more drinks per day Alcohol type: hard liquor Smoked in Last 30 Days: No Use of substances other than those prescribed or required for medical reasons: Yes Substance Use Type: Marijuana Substance Use Frequency: Chronic Longstanding Advance Directives: No Advance Directives Information Provided: Yes Meds Allergies Allergy/AdvReac Type Severity Reaction Status Date / Time No Known Allergies Allergy Verified 01/29/23 17:33 Active Medications: Current Medications Pharmacy Consult (Consult Rx Perform Med Rec) 1 each MISCELLANE ONCE PRN PRN Reason: Consult order Pharmacy Consult (Consult Rx Etoh Phenob Im/Po) 1 each MISCELLANE ONCE PRN; Protocol PRN Reason: Consult order Physical Exam Vital Signs and Narrative: Vital Signs: Last Vital Signs Temp 98.1 F 01/29/23 17:34 Pulse 105 H 01/29/23 17:34 Resp 18 01/29/23 17:34 BP 173/108 H 01/29/23 17:34 Pulse Ox 98 01/29/23 17:34 O2 Del Method 01/29/23 17:34 BMI result Body Mass Index 26.0 Constitutional: Alert, in no acute distress. Mental Status: Oriented to person, place and time. Eyes: Pupils are equal, round, and reactive to light. Ear, Nose, and Throat: Oropharynx clear, mucous membranes dry. Tongue fascicula tions noted. Ears and nose without deformities. Trachea midline. Respiratory: Clear to auscultation bilaterally. No wheezing, rales, or rhonchi. Cardiovascular: S1, S2 regular. No murmurs, rubs, or gallops. Gastrointestinal: Abdomen soft, non-tender, normal bowel sounds. Neurologic: Cranial nerves II-XII are grossly intact bilaterally. No focal neurological deficits. Moves all extremities spontaneously. Mild upper and lower extremity tremors noted. Skin: No rashes or lesions noted. Extremities: No edema. Psychiatric: Normal mood and affect. Results Labs 01/29/23 18:14 01/29/23 19:19 Labs: Laboratory Results - last 24 hr 01/29/23 01/29/23 01/29/23 18:14 18:14 18:14 MCV 97.4 MCH 33.3 H MCHC 34.2 RDW 14.2 Plt Count 156 L MPV 9.9 Immature Gran % (Auto) 0.5 H Neut % (Auto) 79.8 H Lymph % (Auto) 12.8 L [place] % (Auto) 6.3 Eos % (Auto) 0.3 Baso % (Auto) 0.3 Lymph # (Auto) 0.9 L [place] # (Auto) 0.4 Eos # (Auto) 0.0 Baso # (Auto) 0.0 Abs Immat Gran (auto) 0.03 Absolute Neuts (auto) 5.3 Absolute Nucleated RBC 0.020 H Nucleated RBC % (auto) 0.3 H PT 10.6 INR 0.9 APTT 33.0 Anion Gap Estim Creat Clear Calc Estimated GFR Random Glucose Calcium Magnesium Total Bilirubin Direct Bilirubin AST ALT Alkaline Phosphatase Total Creatine Kinase Troponin I High Sens 10.6 B-Natriuretic Peptide Total Protein Albumin Lipase TSH Stool Occult Blood Ethyl Alcohol Influenza Type A (PCR) Influenza Type B (PCR) RSV RNA Qual (PCR) SARS-CoV-2 RNA (RT-PCR) 01/29/23 01/29/23 01/29/23 18:14 18:14 18:14 MCV MCH MCHC RDW Plt Count MPV Immature Gran % (Auto) Neut % (Auto) Lymph % (Auto) [place] % (Auto) Eos % (Auto) Baso % (Auto) Lymph # (Auto) [place] # (Auto) Eos # (Auto) Baso # (Auto) Abs Immat Gran (auto) Absolute Neuts (auto) Absolute Nucleated RBC Nucleated RBC % (auto) PT INR APTT Cancelled Anion Gap Estim Creat Clear Calc Estimated GFR Random Glucose Calcium Magnesium Total Bilirubin Direct Bilirubin AST ALT Alkaline Phosphatase Total Creatine Kinase Troponin I High Sens B-Natriuretic Peptide < 10 Total Protein Albumin Lipase TSH 1.33 Stool Occult Blood Ethyl Alcohol 120 Influenza Type A (PCR) Influenza Type B (PCR) RSV RNA Qual (PCR) SARS-CoV-2 RNA (RT-PCR) 01/29/23 01/29/23 01/29/23 18:14 18:26 19:19 MCV MCH MCHC RDW Plt Count MPV Immature Gran % (Auto) Neut % (Auto) Lymph % (Auto) [place] % (Auto) Eos % (Auto) Baso % (Auto) Lymph # (Auto) [place] # (Auto) Eos # (Auto) Baso # (Auto) Abs Immat Gran (auto) Absolute Neuts (auto) Absolute Nucleated RBC Nucleated RBC % (auto) PT INR APTT Anion Gap 39 H Estim Creat Clear Calc 83.5 Estimated GFR > 60 Random Glucose 83 Calcium 9.0 Magnesium 2.0 Total Bilirubin 1.3 H Direct Bilirubin 0.5 AST 201 H ALT 78 H Alkaline Phosphatase 145 H Total Creatine Kinase 158 Troponin I High Sens B-Natriuretic Peptide Total Protein 7.9 Albumin 4.8 Lipase 30 TSH Stool Occult Blood POSITIVE Ethyl Alcohol Influenza Type A (PCR) NEGATIVE Influenza Type B (PCR) NEGATIVE RSV RNA Qual (PCR) NEGATIVE SARS-CoV-2 RNA (RT-PCR) NEGATIVE 01/29/23 19:19 MCV MCH MCHC RDW Plt Count MPV Immature Gran % (Auto) Neut % (Auto) Lymph % (Auto) [place] % (Auto) Eos % (Auto) Baso % (Auto) Lymph # (Auto) [place] # (Auto) Eos # (Auto) Baso # (Auto) Abs Immat Gran (auto) Absolute Neuts (auto) Absolute Nucleated RBC Nucleated RBC % (auto) PT INR APTT Anion Gap Estim Creat Clear Calc Estimated GFR Random Glucose Calcium Magnesium Total Bilirubin Direct Bilirubin AST ALT Alkaline Phosphatase Total Creatine Kinase Troponin I High Sens 11.9 B-Natriuretic Peptide Total Protein Albumin Lipase TSH Stool Occult Blood Ethyl Alcohol Influenza Type A (PCR) Influenza Type B (PCR) RSV RNA Qual (PCR) SARS-CoV-2 RNA (RT-PCR) Imaging Radiologist's Impressions: Impressions Chest X-Ray 01/29/23 18:32 IMPRESSION: No evidence of acute disease. Assessment and Plan (1) Alcohol withdrawal: Status: Acute (2) Acute colitis: Status: Acute Plan Pt is a 57-year-old male with a PMH significant for?HTN, DM, and alcohol use disorder with previous withdrawal who presents to the ED with?multiple complaints: generalized weakness, tremors, chest pain, SOB, and fatigue. Pt will be admitted to the hospital on telemetry for treatment and evaluation of acute alcohol withdrawal. Acute alcohol withdrawal Mild tremors in extremities, no hallucinations Phenobarbital protocol Daily multivitamin, folic acid 1mg, Thiamine 100 mg daily IV Protonix bid Follow lytes, Mag, BMP IVF: lactated ringers Admit to telemetry Addiction medicine consult CIWA scale Seizure protocols Acute GI bleed Pt with normocytic anemia: H&H 13.0/38.0, MCV 97.4 Baseline unknown Patient with bright red blood per rectum, stool positive for occult blood Possible episode of coffee-ground emesis this morning Follow CBC in the morning GI consult Clear liquid diet for now NPO after midnight in anticipation of possible endoscopy and/or colonoscopy Pneumatic boots for DVT prophylaxis Acute colitis CTA suggestive of acute colitis, infectious versus inflammatory Empiric IV abx: ceftriaxone and Flagyl GI consult Chest pain/pressure Unlikely to be ACS EKG negative for ST elevations or depressions Troponins negative: Initial 10.6 with repeat flat 11.9 D-Dimer elevated at 603 CTA with suboptimal bolus timing: Negative for central pulmonary emboli, peripheral branches unable to be assessed Prolonged QT Patient's EKG showed QTc of 555 Avoid QT-prolonging agents Monitor on telemetry Generalized weakness, fatigue Unclear etiology, possibly related to alcohol use disorder and decreased p.o. intake PT evaluation Transaminitis CTA showed significantly fatty infiltrated liver, likely secondary to alcohol use disorder Patient with no acute abdominal complaint, physical exam benign Diabetes SSI Full Code Attending:?Dr. Solares DVT Prophylaxis: Pneumatic boots Pt will require a hospitalization of at least two nights for treatment of?acute alcohol withdrawal with IV phenobarbital. Time Spent With Patient Time: Total time managing care of this patient today ____ minutes. Quality Stroke Does the patient have a stroke diagnosis?: No VTE Prior VTE?: No VTE Risk Level:: Medical - moderate - high VTE Device Contraindication: N/A - Device Ordered VTE Drug Contraindication: Treatment Not Indicated
[2023-01-29] MEDS: PHENobarbitaL sodium 130 MG/ML IM ONCE 255 MG IM (20:42)
[2023-01-29 20:51] LABS: D Dimer High Sensitivity 603 NG/ML
[2023-01-29] MEDS: Folic Acid 1 MG TABLET PO (21:10)
[2023-01-29] MEDS: Thiamine HCL 100 MG TABLET PO (21:10)
[2023-01-29] MEDS: Multivitamin TABLET 1 TAB PO (21:10)
[2023-01-29] MEDS: iohexoL 350 MG/ML 100 ML INFUS..BTL IV ×2 (21:30→21:41)
[2023-01-29] MEDS: Lactated Ringers 1,000 ML 100 ML IVCONT (21:39)
[2023-01-29] MEDS: Pantoprazole Sodium 40 MG/10 ML VIAL IVPUSH (21:39)
[2023-01-29 21:47] LABS: Glucose, Whole Blood 138 mg/dL (60-115)
[2023-01-29 22:26] VITALS: BP 114/78; PULSE 99; RESP 18; TEMP 37.8; O2SAT 96
[2023-01-29] MEDS: Potassium Chloride Packet 20 MEQ PACKET 40 MEQ PO (22:39)
[2023-01-29] MEDS: PHENobarbitaL sodium 130 MG/ML VIAL IM Q3Hx2 191 MG IM (23:59)
[2023-01-29] MEDS: cefTRIAXone sodium 1 GM in 0.9 % Sodium Chloride 50 ML IV (23:59)
[2023-01-30] VITALS (7 sets, daily range): BP systolic 138–158; BP diastolic 76–99; PULSE 75–97; RESP 16–20; TEMP 36.4–36.8; O2SAT 96–98; BMI 27.7
[2023-01-30] MEDS: metroNIDAZOLE/NS 500 MG/100 ML PIGGYBACK 100 MG IV ×3 (01:44→17:29)
[2023-01-30] MEDS: PHENobarbitaL sodium 130 MG/ML VIAL IM Q3Hx2 191 MG IM (03:09)
[2023-01-30] MEDS: Pantoprazole Sodium 40 MG/10 ML VIAL IVPUSH ×2 (05:56→16:37)
[2023-01-30 07:18] LABS: Glucose, Whole Blood 107 mg/dL (60-115)
[2023-01-30 07:28] LABS: Blood Urea Nitrogen 10 mg/dL (9-16); Calcium 8.7 mg/dL (8.4-10.2); Creatinine Clr Calc Pharmacy 65.9; Estimated Glomerular Filt Rate > 60; Glucose Random 95 mg/dL (60-115); Magnesium 1.8 mg/dL (1.6-2.6)
[2023-01-30 07:42] LABS: Anion Gap 26 (12-20); Carbon Dioxide 22 mmol/L (22-29); Chloride 94 mmol/L (96-108); Potassium 3.2 mmol/L (3.3-5.1); Sodium 139 mmol/L (135-145)
[2023-01-30] MEDS: Lactated Ringers 1,000 ML 100 ML IVCONT (08:00)
[2023-01-30] MEDS: 0.9 % Sodium Chloride Flush 3 ML SYRINGE IVFLUSH ×2 (09:32→16:37)
[2023-01-30] MEDS: Multivitamin TABLET 1 TAB PO (09:32)
[2023-01-30] MEDS: Thiamine HCL 100 MG TABLET PO (09:32)
[2023-01-30] MEDS: Folic Acid 1 MG TABLET PO (09:33)
[2023-01-30] MEDS: PHENobarbitaL 15 MG TABLET 45 MG PO ×2 (09:33→20:11)
[2023-01-30] MEDS: PHENobarbitaL sodium 130 MG/ML VIAL IM (10:17)
[2023-01-30] MEDS: Potassium Chloride/H20 10 MEQ/100 ML PIGGYBACK 100 MEQ IV ×2 (10:17→11:24)
--- NOTE | 2023-01-30 10:26 | PHA.MEDREC ---
Pharmacy Consult ? Medication Reconciliation Pharmacy has completed the medication reconciliation. Spoke to patient directly, able to name some medications but not all. Clarified that he gets all medications from [facility], used pt info and claim history
[2023-01-30] MEDS: Magnesium Sulfate/D5W 1 GM/100 ML PIGGYBACK IV (10:32)
--- NOTE | 2023-01-30 10:32 | MHC.CM.PN ---
CM met with Patient at bedside and addressed IMM with him, providing him with the original and placing a copy on the chart. Patient lives alone in an apartment and he required no services nor DME [employer]YMER SCI[employer]. Patient states that his is his HCP. Home self care is the goal and CM has initiated and will follow for dc planning. Patient has received Covid vax x3 and his PCP is Dr. Romel Cornejo.
[2023-01-30 11:10] LABS: Glucose, Whole Blood 120 mg/dL (60-115)
[2023-01-30 11:55] LABS: Hematocrit 32.6 % (42.0-52.0); Hemoglobin 11.5 g/dl (14.0-18.0)
[2023-01-30 12:20] LABS: Appearance Urine Clear; Color Urine Yellow; Glucose Urine UA Negative (Negative); Leukocyte Esterase Urine Negative (Negative); Nitrite Urine Negative (Negative); PH 6.5 (5.0-9.0); Specific Gravity - Urine >= 1.030 (1.005-1.025); UMIC TRIGGER UACC YES; Urine Blood Small (1+) (Negative); Urine Ketones >=160 mg/dL (Negative); Urine Protein 100 (2+) mg/dL (Neg-Trace)
[2023-01-30 12:24] LABS: Bacteria Urine None Seen (None Seen); Squamous Epithelial Cell Urine 0-2 /HPF (0-2); UACC Culture Trigger YES
[2023-01-30 12:45] LABS: Amphetamine Screen Urine Not Detected (Not Detect); Barbiturates, Urine POSITIVE (Not Detect); Benzodiazepines Screen Urine Not Detected (Not Detect); Cannabinoid Screen Urine POSITIVE (Not Detect); Cocaine Screen Urine Not Detected (Not Detect); Fentanyl, urine Not Detected (Not Detect); Opiate Screen Urine Not Detected (Not Detect); Phencyclidine Screen Urine Not Detected (Not Detect)
--- NOTE | 2023-01-30 15:40 | PM.EVENT ---
Event Note Date of Service: 01/30/23 Event Note: GI consult dictated EGD and colonoscopy planned for tomorrow to further evaluate vomiting and rectal bleeding. Time Spent With Patient Time: Total time managing care of this patient today ____ minutes.
[2023-01-30 16:22] LABS: Glucose, Whole Blood 155 mg/dL (60-115)
[2023-01-30] MEDS: Insulin Lispro 100 UNIT/ML 3 ML VIAL SUBCUT (16:37)
--- NOTE | 2023-01-30 16:45 | P.PNIM_ITS ---
Subjective Subjective Date of Service: 02/08/23 Interval History: Alcohol withdrawal, GI bleeding, elevated LFTs. Review of Systems Patient still has mild tremors, anxious. No new bleeding episode. No fever or chills or cough or phlegm. Physical Exam Vital Signs: Vital Signs: Last Vital Signs Temp 98.3 F 01/30/23 15:06 Pulse 82 01/30/23 15:06 Resp 18 01/30/23 15:06 BP 158/89 H 01/30/23 15:06 Pulse Ox 96 01/30/23 15:06 O2 Del Method 01/30/23 15:06 BMI result Body Mass Index 27.7 Appearance: Alert.? Oriented X3.? not in distress.? Eyes: Pupils equal, round and reactive to light.? Sclera anicteric.? ENT: Pharynx normal.? Moist mucous membranes. cvs: rrr, [id number] . res: clear to auscultation ,no rhonchii or wheezing abd: no rebound or guarding ,nt, bs present. ext pulses present , no cyanosis . neuro: axo3 , nonfocal. Objective Data Active Medications Acetaminophen (Acetaminophen 325 Mg Tablet) 650 mg PO Q6H PRN PRN Reason: Pain, Mild (Pain Scale 1-3) Folic Acid (Folic Acid 1 Mg Tablet) 1 mg PO DAILY [facility] Stop: 02/01/23 21:14 Last Admin: 01/30/23 09:33 Dose: 1 mg Documented By: SANDRA Glucose (Glucose Gel 15 Gm Gel..Gram.) 15 gm PO Q15M PRN; Protocol PRN Reason: per Hypoglycemia Standing Ord. Lactated Ringer's (Lr) 1,000 mls @ 100 mls/hr IVCONT .Q10H [facility] Last Infusion: 01/30/23 12:31 Dose: 100 mls/hr Documented By: SANDRA Dextrose (D10) 250 mls @ 750 mls/hr IV Q15M PRN; Protocol PRN Reason: per Hypoglycemia Standing Ord. Ceftriaxone Sodium 1 gm/ (Sodium Chloride) 50 mls @ 100 mls/hr IV Q24H [facility] Last Infusion: 01/30/23 00:52 Dose: 0 mls/hr Documented By: CHET Metronidazole (Flagyl) 500 mg in 100 mls @ 100 mls/hr IV Q8H [facility] Last Infusion: 01/30/23 10:34 Dose: 0 mls/hr Documented By: SANDRA Insulin Human Lispro (Insulin Lispro 100 Unit/Ml 3 Ml Vial) 0 unit SUBCUT QIDACHS [facility]; Protocol Last Admin: 01/30/23 16:37 Dose: 2 unit Documented By: SANDRA Multivitamins/Vitamin C (Multivitamin Tablet) 1 tab PO DAILY [facility] Stop: 02/01/23 21:14 Last Admin: 01/30/23 09:32 Dose: 1 tab Documented By: SANDRA Pantoprazole Sodium (Pantoprazole Sodium 40 Mg/10 Ml Vial) 40 mg IVPUSH BID@0630,1630 [facility] Last Admin: 01/30/23 16:37 Dose: 40 mg Documented By: SANDRA Pharmacy Consult (Consult Rx Perform Med Rec) 1 each MISCELLANE ONCE PRN PRN Reason: Consult order Pharmacy Consult (Consult Rx Etoh Phenob Im/Po) 1 each MISCELLANE ONCE PRN; Protocol PRN Reason: Consult order Phenobarbital (Phenobarbital 15 Mg Tablet) 45 mg PO BID [facility] Stop: 01/31/23 21:01 Last Admin: 01/30/23 09:33 Dose: 45 mg Documented By: SANDRA Phenobarbital (Phenobarbital 30 Mg Tablet) 30 mg PO BID [facility] Stop: 02/02/23 21:01 Phenobarbital (Phenobarbital 15 Mg Tablet) 15 mg PO DAILY [facility] Stop: 02/04/23 09:01 Sodium Chloride (0.9 % Sodium Chloride Flush 3 Ml Syringe) 3 ml IVFLUSH QSHIFT [facility] Last Admin: 01/30/23 16:37 Dose: 3 ml Documented By: SANDRA Thiamine HCl (Thiamine Hcl 100 Mg Tablet) 100 mg PO DAILY [facility] Stop: 02/01/23 21:14 Last Admin: 01/30/23 09:32 Dose: 100 mg Documented By: SANDRA Labs 01/30/23 11:46 01/30/23 06:52 Labs: Laboratory Results - last 24 hr 01/29/23 01/29/23 01/29/23 18:14 18:14 18:14 MCV 97.4 MCH 33.3 H MCHC 34.2 RDW 14.2 Plt Count 156 L MPV 9.9 Immature Gran % (Auto) 0.5 H Neut % (Auto) 79.8 H Lymph % (Auto) 12.8 L [place] % (Auto) 6.3 Eos % (Auto) 0.3 Baso % (Auto) 0.3 Lymph # (Auto) 0.9 L [place] # (Auto) 0.4 Eos # (Auto) 0.0 Baso # (Auto) 0.0 Abs Immat Gran (auto) 0.03 Absolute Neuts (auto) 5.3 Absolute Nucleated RBC 0.020 H Nucleated RBC % (auto) 0.3 H PT 10.6 INR 0.9 APTT 33.0 D-Dimer High Sensitivty 603 Anion Gap Estim Creat Clear Calc Estimated GFR POC Glucose Random Glucose Calcium Magnesium Total Bilirubin Direct Bilirubin AST ALT Alkaline Phosphatase Total Creatine Kinase Troponin I High Sens 10.6 B-Natriuretic Peptide Total Protein Albumin Lipase TSH Urine Color Urine Appearance Urine pH Ur Specific [place] Urine Protein Urine Glucose (UA) Urine Ketones Urine Blood Urine Nitrite Ur Leukocyte Esterase Urine RBC Urine WBC Ur Squamous Epith Cells Urine Bacteria Hyaline Casts Stool Occult Blood Urine Opiates Screen Urine Fentanyl Screen Ur Barbiturates Screen Ur Phencyclidine Scrn Ur Amphetamines Screen U Benzodiazepines Scrn Urine Cocaine Screen U Marijuana (THC) Screen Ethyl Alcohol Influenza Type A (PCR) Influenza Type B (PCR) RSV RNA Qual (PCR) SARS-CoV-2 RNA (RT-PCR) 01/29/23 01/29/23 01/29/23 18:14 18:14 18:14 MCV MCH MCHC RDW Plt Count MPV Immature Gran % (Auto) Neut % (Auto) Lymph % (Auto) [place] % (Auto) Eos % (Auto) Baso % (Auto) Lymph # (Auto) [place] # (Auto) Eos # (Auto) Baso # (Auto) Abs Immat Gran (auto) Absolute Neuts (auto) Absolute Nucleated RBC Nucleated RBC % (auto) PT INR APTT Cancelled D-Dimer High Sensitivty Anion Gap Estim Creat Clear Calc Estimated GFR POC Glucose Random Glucose Calcium Magnesium Total Bilirubin Direct Bilirubin AST ALT Alkaline Phosphatase Total Creatine Kinase Troponin I High Sens B-Natriuretic Peptide < 10 Total Protein Albumin Lipase TSH 1.33 Urine Color Urine Appearance Urine pH Ur Specific [place] Urine Protein Urine Glucose (UA) Urine Ketones Urine Blood Urine Nitrite Ur Leukocyte Esterase Urine RBC Urine WBC Ur Squamous Epith Cells Urine Bacteria Hyaline Casts Stool Occult Blood Urine Opiates Screen Urine Fentanyl Screen Ur Barbiturates Screen Ur Phencyclidine Scrn Ur Amphetamines Screen U Benzodiazepines Scrn Urine Cocaine Screen U Marijuana (THC) Screen Ethyl Alcohol 120 Influenza Type A (PCR) Influenza Type B (PCR) RSV RNA Qual (PCR) SARS-CoV-2 RNA (RT-PCR) 01/29/23 01/29/23 01/29/23 18:14 18:26 19:19 MCV MCH MCHC RDW Plt Count MPV Immature Gran % (Auto) Neut % (Auto) Lymph % (Auto) [place] % (Auto) Eos % (Auto) Baso % (Auto) Lymph # (Auto) [place] # (Auto) Eos # (Auto) Baso # (Auto) Abs Immat Gran (auto) Absolute Neuts (auto) Absolute Nucleated RBC Nucleated RBC % (auto) PT INR APTT D-Dimer High Sensitivty Anion Gap 39 H Estim Creat Clear Calc 83.5 Estimated GFR > 60 POC Glucose Random Glucose 83 Calcium 9.0 Magnesium 2.0 Total Bilirubin 1.3 H Direct Bilirubin 0.5 AST 201 H ALT 78 H Alkaline Phosphatase 145 H Total Creatine Kinase 158 Troponin I High Sens B-Natriuretic Peptide Total Protein 7.9 Albumin 4.8 Lipase 30 TSH Urine Color Urine Appearance Urine pH Ur Specific [place] Urine Protein Urine Glucose (UA) Urine Ketones Urine Blood Urine Nitrite Ur Leukocyte Esterase Urine RBC Urine WBC Ur Squamous Epith Cells Urine Bacteria Hyaline Casts Stool Occult Blood POSITIVE Urine Opiates Screen Urine Fentanyl Screen Ur Barbiturates Screen Ur Phencyclidine Scrn Ur Amphetamines Screen U Benzodiazepines Scrn Urine Cocaine Screen U Marijuana (THC) Screen Ethyl Alcohol Influenza Type A (PCR) NEGATIVE Influenza Type B (PCR) NEGATIVE RSV RNA Qual (PCR) NEGATIVE SARS-CoV-2 RNA (RT-PCR) NEGATIVE 01/29/23 01/29/23 01/30/23 19:19 21:37 06:52 MCV MCH MCHC RDW Plt Count MPV Immature Gran % (Auto) Neut % (Auto) Lymph % (Auto) [place] % (Auto) Eos % (Auto) Baso % (Auto) Lymph # (Auto) [place] # (Auto) Eos # (Auto) Baso # (Auto) Abs Immat Gran (auto) Absolute Neuts (auto) Absolute Nucleated RBC Nucleated RBC % (auto) PT INR APTT D-Dimer High Sensitivty Anion Gap 26 H Estim Creat Clear Calc 65.9 Estimated GFR > 60 POC Glucose 138 H Random Glucose 95 Calcium 8.7 Magnesium 1.8 Total Bilirubin Direct Bilirubin AST ALT Alkaline Phosphatase Total Creatine Kinase Troponin I High Sens 11.9 B-Natriuretic Peptide Total Protein Albumin Lipase TSH Urine Color Urine Appearance Urine pH Ur Specific [place] Urine Protein Urine Glucose (UA) Urine Ketones Urine Blood Urine Nitrite Ur Leukocyte Esterase Urine RBC Urine WBC Ur Squamous Epith Cells Urine Bacteria Hyaline Casts Stool Occult Blood Urine Opiates Screen Urine Fentanyl Screen Ur Barbiturates Screen Ur Phencyclidine Scrn Ur Amphetamines Screen U Benzodiazepines Scrn Urine Cocaine Screen U Marijuana (THC) Screen Ethyl Alcohol Influenza Type A (PCR) Influenza Type B (PCR) RSV RNA Qual (PCR) SARS-CoV-2 RNA (RT-PCR) 01/30/23 01/30/23 01/30/23 07:12 11:06 11:20 MCV MCH MCHC RDW Plt Count MPV Immature Gran % (Auto) Neut % (Auto) Lymph % (Auto) [place] % (Auto) Eos % (Auto) Baso % (Auto) Lymph # (Auto) [place] # (Auto) Eos # (Auto) Baso # (Auto) Abs Immat Gran (auto) Absolute Neuts (auto) Absolute Nucleated RBC Nucleated RBC % (auto) PT INR APTT D-Dimer High Sensitivty Anion Gap Estim Creat Clear Calc Estimated GFR POC Glucose 107 120 H Random Glucose Calcium Magnesium Total Bilirubin Direct Bilirubin AST ALT Alkaline Phosphatase Total Creatine Kinase Troponin I High Sens B-Natriuretic Peptide Total Protein Albumin Lipase TSH Urine Color Yellow Urine Appearance Clear Urine pH 6.5 Ur Specific [place] >= 1.030 H Urine Protein 100 (2+) H Urine Glucose (UA) Negative Urine Ketones >=160 Urine Blood Small (1+) H Urine Nitrite Negative Ur Leukocyte Esterase Negative Urine RBC 6-10 H Urine WBC 6-10 H Ur Squamous Epith Cells 0-2 Urine Bacteria None Seen Hyaline Casts 3-5 Stool Occult Blood Urine Opiates Screen Urine Fentanyl Screen Ur Barbiturates Screen Ur Phencyclidine Scrn Ur Amphetamines Screen U Benzodiazepines Scrn Urine Cocaine Screen U Marijuana (THC) Screen Ethyl Alcohol Influenza Type A (PCR) Influenza Type B (PCR) RSV RNA Qual (PCR) SARS-CoV-2 RNA (RT-PCR) 01/30/23 01/30/23 11:20 16:18 MCV MCH MCHC RDW Plt Count MPV Immature Gran % (Auto) Neut % (Auto) Lymph % (Auto) [place] % (Auto) Eos % (Auto) Baso % (Auto) Lymph # (Auto) [place] # (Auto) Eos # (Auto) Baso # (Auto) Abs Immat Gran (auto) Absolute Neuts (auto) Absolute Nucleated RBC Nucleated RBC % (auto) PT INR APTT D-Dimer High Sensitivty Anion Gap Estim Creat Clear Calc Estimated GFR POC Glucose 155 H Random Glucose Calcium Magnesium Total Bilirubin Direct Bilirubin AST ALT Alkaline Phosphatase Total Creatine Kinase Troponin I High Sens B-Natriuretic Peptide Total Protein Albumin Lipase TSH Urine Color Urine Appearance Urine pH Ur Specific [place] Urine Protein Urine Glucose (UA) Urine Ketones Urine Blood Urine Nitrite Ur Leukocyte Esterase Urine RBC Urine WBC Ur Squamous Epith Cells Urine Bacteria Hyaline Casts Stool Occult Blood Urine Opiates Screen Not Detected Urine Fentanyl Screen Not Detected Ur Barbiturates Screen POSITIVE H Ur Phencyclidine Scrn Not Detected Ur Amphetamines Screen Not Detected U Benzodiazepines Scrn Not Detected Urine Cocaine Screen Not Detected U Marijuana (THC) Screen POSITIVE H Ethyl Alcohol Influenza Type A (PCR) Influenza Type B (PCR) RSV RNA Qual (PCR) SARS-CoV-2 RNA (RT-PCR) Assessment and Plan (1) Hypokalemia: Status: Acute (2) Acute colitis: Status: Acute (3) Alcohol withdrawal: Status: Acute (4) Acute lower GI bleeding: Status: Acute Plan 57-year-old male with a PMH significant for?HTN, DM, and alcohol use disorder with previous withdrawal who presents to the ED with?multiple complaints: generalized weakness, tremors, chest pain, SOB, and fatigue. Pt will be admitted to the hospital on telemetry for treatment and evaluation of acute alcohol withdrawal. Acute alcohol withdrawal Mild tremors in extremities, no hallucinations Phenobarbital protocol Daily multivitamin, folic acid 1mg, Thiamine 100 mg daily,IV Protonix bid Follow lytes, Mag, BMP IVF: lactated ringers Admit to telemetry Addiction medicine consult CIWA scale Seizure protocols Acute GI bleed Pt with normocytic anemia: H&H 13.0/38.0-repeated trending down 11.5/32.6 Baseline unknown Patient with bright red blood per rectum, stool positive for occult blood Possible episode of coffee-ground emesis this morning moniter cbc closely GI consult NPO after midnight in anticipation of possible endoscopy and/or colonoscopy Pneumatic boots for DVT prophylaxis Acute colitis CTA suggestive of acute colitis, infectious versus inflammatory Empiric IV abx: ceftriaxone and Flagyl Chest pain/pressure Unlikely to be ACS EKG negative for ST elevations or depressions Troponins negative:? Initial 10.6 with repeat flat 11.9 D-Dimer elevated at 603 CTA with suboptimal bolus timing:? Negative for central pulmonary emboli, peripheral branches unable to be assessed Prolonged QT Patient's EKG showed QTc of 555 on tele qtc today- avoid QT-prolonging agents Monitor on telemetry Generalized weakness, fatigue Unclear etiology, possibly related to alcohol use disorder and decreased p.o. intake PT evaluation Transaminitis CTA showed significantly fatty infiltrated liver, likely secondary to alcohol use disorder Patient with no acute abdominal complaint, physical exam benign moniter lft's Diabetes SSI DVT Prophylaxis: Pneumatic boots Pt will require a hospitalization of at least two nights for treatment of?acute alcohol withdrawal with IV phenobarbital. Time Spent With Patient Time: Total time managing care of this patient today ____ minutes. Quality Stroke Does the patient have a stroke diagnosis?: No VTE Prior VTE?: No VTE Risk Level:: Medical - moderate - high VTE Device Contraindication: N/A - Device Ordered VTE Drug Contraindication: Treatment Not Indicated
[2023-01-30] MEDS: PEG 3350/Na Sulf,Bicarb,Cl/KCL 4,000 ML SOLN.RECON 4000 ML PO (17:40)
[2023-01-30 20:17] LABS: Hematocrit 33.5 % (42.0-52.0); Hemoglobin 11.8 g/dl (14.0-18.0)
[2023-01-30 20:32] LABS: Glucose, Whole Blood 104 mg/dL (60-115)
[2023-01-30 20:42] LABS: Anion Gap 19 (12-20); Blood Urea Nitrogen 7 mg/dL (9-16); Calcium 8.9 mg/dL (8.4-10.2); Carbon Dioxide 29 mmol/L (22-29); Chloride 92 mmol/L (96-108); Creatinine Clr Calc Pharmacy 69.4; Estimated Glomerular Filt Rate > 60; Glucose Random 90 mg/dL (60-115); Potassium 3.7 mmol/L (3.3-5.1); Sodium 136 mmol/L (135-145)
[2023-01-30] MEDS: cefTRIAXone sodium 1 GM in 0.9 % Sodium Chloride 50 ML IV (22:26)
[2023-01-31] VITALS (9 sets, daily range): BP systolic 90–157; BP diastolic 64–97; PULSE 71–93; RESP 16–20; TEMP 36.6–37.6; O2SAT 95–98
[2023-01-31] MEDS: metroNIDAZOLE/NS 500 MG/100 ML PIGGYBACK 100 MG IV ×3 (02:48→17:12)
[2023-01-31] MEDS: 0.9 % Sodium Chloride Flush 3 ML SYRINGE IVFLUSH (02:49)
[2023-01-31] MEDS: Lactated Ringers 1,000 ML 100 ML IVCONT ×2 (02:49→17:14)
--- NOTE | 2023-01-31 03:01 | CONS_ITS ---
DATE OF SERVICE: 01/30/2023 REFERRING PHYSICIAN: Dr. Huang HISTORY OF PRESENT ILLNESS: The patient is a pleasant 57-year-old man, who was admitted to the hospital from the emergency department with complaints of chest pain, weakness, shortness of breath, and fatigue. The patient also reported a large amount of bright red blood per rectum a couple of days before admission. Family members reported some coffee-ground like vomiting as well. He does have a history of alcohol abuse and had been drinking 10 drinks on a daily basis for several days prior to admission. PAST MEDICAL HISTORY: 1. Hypertension. 2. Diabetes mellitus. 3. Peptic ulcer disease. 4. Alcohol abuse. CURRENT MEDICATIONS: Current medication list is reviewed in the chart. ALLERGIES: THERE ARE NONE REPORTED. FAMILY HISTORY: This is reviewed with the patient and is noncontributory. SOCIAL HISTORY: There is no current narcotic usage. Alcohol use is as noted above. REVIEW OF SYSTEMS: SKIN: No pruritus. HEENT: Negative. CARDIOPULMONARY: Positive for shortness of breath. GASTROINTESTINAL: As above. GENITOURINARY: Negative. NEUROPSYCHIATRIC: Negative. PHYSICAL EXAMINATION: GENERAL: Shows a pleasant male, lying comfortably in bed. VITAL SIGNS: Reviewed in the electronic medical record and are stable. SKIN: Anicteric. HEENT: Shows no scleral icterus. NECK: Without lymphadenopathy or thyromegaly. LUNGS: Clear. HEART: Shows regular rate and rhythm. S1, S2. No murmur. ABDOMEN: Soft without focal masses or tenderness. Bowel sounds are present. No organomegaly is noted. EXTREMITIES: Without edema. RECTAL: On admission showed brown stool and occult blood positive. LABORATORY DATA: Hematocrit has dropped from 38 on admission to 32.6 this morning with no reported bleeding. IMPRESSION: Gastrointestinal bleeding. We discussed the differential diagnosis for lower and upper gastrointestinal bleeding and I have recommended further evaluation with endoscopy and colonoscopy. This will be arranged for tomorrow. I did discuss with him the need to avoid alcohol. Thanks for asking me to see him. I will follow him in the hospital with you. MD NARINDER Daily/STEPHANIE / [phone]
[2023-01-31] MEDS: Pantoprazole Sodium 40 MG/10 ML VIAL IVPUSH (05:42)
[2023-01-31 07:13] LABS: Glucose, Whole Blood 109 mg/dL (60-115)
[2023-01-31 07:45] LABS: Hematocrit 30.7 % (42.0-52.0); Hemoglobin 10.8 g/dl (14.0-18.0); Mean Corpuscular HGB Conc 35.2 g/dl (31.0-36.0); Mean Corpuscular Hemoglobin 33.5 pg (27.0-33.0); Mean Corpuscular Volume 95.3 fL (80.0-98.0); Platelet Count 122 X10*3/uL (160-400); Red Blood Count 3.22 X10*6/uL (4.60-5.80); Red Cell Distribution Width 13.2 % (11.0-16.0); White Blood Count 4.9 X10*3/uL (4.8-10.8)
[2023-01-31 07:47] LABS: Blood Urea Nitrogen 5 mg/dL (9-16); Calcium 8.6 mg/dL (8.4-10.2); Estimated Glomerular Filt Rate > 60; Glucose Random 96 mg/dL (60-115)
[2023-01-31 07:59] LABS: Anion Gap 21 (12-20); Carbon Dioxide 26 mmol/L (22-29); Chloride 95 mmol/L (96-108); Potassium 2.8 mmol/L (3.3-5.1); Sodium 139 mmol/L (135-145)
[2023-01-31] MEDS: dilTIAZem HCL CD 120 MG CAP.ER.DEG PO (08:58)
[2023-01-31] MEDS: PHENobarbitaL 15 MG TABLET 45 MG PO ×2 (08:58→21:18)
[2023-01-31] MEDS: Sertraline HCL 25 MG TABLET PO (08:59)
[2023-01-31] MEDS: Folic Acid 1 MG TABLET PO (08:59)
[2023-01-31] MEDS: Thiamine HCL 100 MG TABLET PO (08:59)
--- NOTE | 2023-01-31 09:43 | MHC.RECOVRN ---
Received Addiction Medicine Consult. Chart reviewed. Per reports, pt to have colonoscopy/endoscopy today. Will continue to follow.
[2023-01-31 11:26] LABS: Glucose, Whole Blood 91 mg/dL (60-115)
--- NOTE | 2023-01-31 13:15 | P.CONAN_ITS ---
HPI - Anesthesia Eval Consult details Narrative: for EGD and colonoscopy [facility] Active Problems Active Problems: All Active Problems (Updated 01/30/23 @ 16:53 by Hayley Huang MD) Hypokalemia (Acute) Acute colitis (Acute) Alcohol withdrawal (Acute) Acute lower GI bleeding (Acute) Chest pain (Acute) Shortness of breath (Acute) Alcohol intoxication (Acute) Family History Family history of problems with anesthesia: No Surgical History History of Problems with Anesthesia: No Social History Social History Household Members: None Housing: Apartment Do you presently have visiting nurse or other home services: No Alcohol intake: current Alcohol intake frequency: 3 or more drinks per day Alcohol type: hard liquor Patient Tobacco Use Status: Current everyday Tobacco user Tobacco use type: Cigarette Cigarettes Per Day: 10 Smoked in Last 30 Days: No e-Cigarette/Vaping Use: Never Used Second Hand Smoke Exposure: No Use of substances other than those prescribed or required for medical reasons: Yes Substance Use Type: Marijuana Substance Use Frequency: Weekly Last Used Substance: Days (ago) Currently Displaying Signs/Symptoms of Drug Intoxication Withdrawal: No Any prior treatment program specific to substance use: No Have you been hit, kicked, punched, or otherwise hurt by someone within the past year? If so, by whom?: No Do you feel safe in your current relationship?: Yes Is there a partner from a previous relationship who is making you feel unsafe now?: No Are you made to feel afraid or neglected: No Are you DNR?: No Advance Directives: No Advance Directives Information Provided: Yes Advance Directives on File: No Do you have thoughts of harming others: None Do you have a plan to hurt others: No Plan Recently lost weight without trying: No Eating poorly because of decreased appetite: No Nutrition Risks: No Nutritional Risk service: No Current occupational status: disabled Meds Allergies Allergy/AdvReac Type Severity Reaction Status Date / Time No Known Allergies Allergy Verified 01/29/23 17:33 Active Medications: Current Medications Acetaminophen (Acetaminophen 325 Mg Tablet) 650 mg PO Q6H PRN PRN Reason: Pain, Mild (Pain Scale 1-3) Diltiazem HCl (Diltiazem Hcl Cd 120 Mg Cap.Er.Deg) 120 mg PO DAILY JACKIE; Protocol Last Admin: 01/31/23 08:58 Dose: 120 mg Ferrous Sulfate (Ferrous Sulfate 324 Mg Tablet.Dr) 324 mg PO DAILY [facility] Last Admin: 01/31/23 08:59 Dose: Not Given Folic Acid (Folic Acid 1 Mg Tablet) 1 mg PO DAILY [facility] Stop: 02/01/23 21:14 Last Admin: 01/31/23 08:59 Dose: 1 mg Folic Acid (Folic Acid 1 Mg Tablet) 1 mg PO DAILY [facility] Last Admin: 01/31/23 08:52 Dose: Not Given Glucose (Glucose Gel 15 Gm Gel..Gram.) 15 gm PO Q15M PRN; Protocol PRN Reason: per Hypoglycemia Standing Ord. Lactated Ringer's (Lr) 1,000 mls @ 100 mls/hr IVCONT .Q10H [facility] Last Admin: 01/31/23 13:09 Dose: Not Given Dextrose (D10) 250 mls @ 750 mls/hr IV Q15M PRN; Protocol PRN Reason: per Hypoglycemia Standing Ord. Ceftriaxone Sodium 1 gm/ (Sodium Chloride) 50 mls @ 100 mls/hr IV Q24H [facility] Last Infusion: 01/30/23 22:58 Dose: Infused Metronidazole (Flagyl) 500 mg in 100 mls @ 100 mls/hr IV Q8H [facility] Last Infusion: 01/31/23 10:02 Dose: Infused Insulin Human Lispro (Insulin Lispro 100 Unit/Ml 3 Ml Vial) 0 unit SUBCUT QIDACHS [facility]; Protocol Last Admin: 01/31/23 11:29 Dose: Not Given Multivitamins/Vitamin C (Multivitamin Tablet) 1 tab PO DAILY [facility] Stop: 02/01/23 21:14 Last Admin: 01/31/23 08:59 Dose: Not Given Pantoprazole Sodium (Pantoprazole Sodium 40 Mg/10 Ml Vial) 40 mg IVPUSH BID@0630,1630 [facility] Last Admin: 01/31/23 05:42 Dose: 40 mg Pharmacy Consult (Consult Rx Perform Med Rec) 1 each MISCELLANE ONCE PRN PRN Reason: Consult order Pharmacy Consult (Consult Rx Etoh Phenob Im/Po) 1 each MISCELLANE ONCE PRN; Protocol PRN Reason: Consult order Phenobarbital (Phenobarbital 15 Mg Tablet) 45 mg PO BID [facility] Stop: 01/31/23 21:01 Last Admin: 01/31/23 08:58 Dose: 45 mg Phenobarbital (Phenobarbital 30 Mg Tablet) 30 mg PO BID [facility] Stop: 02/02/23 21:01 Phenobarbital (Phenobarbital 15 Mg Tablet) 15 mg PO DAILY [facility] Stop: 02/04/23 09:01 Sertraline HCl (Sertraline Hcl 25 Mg Tablet) 25 mg PO DAILY [facility] Last Admin: 01/31/23 08:59 Dose: 25 mg Sodium Chloride (0.9 % Sodium Chloride Flush 3 Ml Syringe) 3 ml IVFLUSH QSHIFT [facility] Last Admin: 01/31/23 12:22 Dose: Not Given Thiamine HCl (Thiamine Hcl 100 Mg Tablet) 100 mg PO DAILY [facility] Stop: 02/01/23 21:14 Last Admin: 01/31/23 08:59 Dose: 100 mg Home Medications Medication Instructions Recorded Confirmed Last Taken Type aspirin 81 mg tablet,delayed 81 mg PO DAILY 01/30/23 01/30/23 01/29/23 History release diltiazem HCl 120 mg 1 cap PO DAILY 01/30/23 01/30/23 01/29/23 History capsule,extended release 24 hr ferrous sulfate 324 mg (65 mg 324 mg PO DAILY 01/30/23 01/30/23 01/29/23 History iron) tablet,delayed release folic acid 1 mg tablet 1 tab PO DAILY 01/30/23 01/30/23 01/29/23 History lisinopril 20 mg tablet 1 tab PO DAILY 01/30/23 01/30/23 01/29/23 History omeprazole 40 mg capsule,delayed 1 cap PO DAILY 01/30/23 01/30/23 01/29/23 History release sertraline 25 mg tablet 1 tab PO DAILY 01/30/23 01/30/23 01/29/23 History Exam Exam Date and Time: January 31, 2023 1315 Height,Weight and Vital Signs: Height 5 ft 6 in Weight 78 kg Last Vital Signs Temp 98.7 F 01/31/23 12:58 Pulse 93 01/31/23 12:58 Resp 16 01/31/23 12:58 BP 157/73 H 01/31/23 12:58 Pulse Ox 98 01/31/23 12:58 O2 Del Method 01/31/23 12:58 Pertinent Lab Results Pertinent Lab Results: Laboratory Tests 01/29/23 01/29/23 01/29/23 18:14 18:14 18:14 WBC 6.6 RBC 3.90 L Hgb 13.0 L Hct 38.0 L MCV 97.4 MCH 33.3 H MCHC 34.2 RDW 14.2 Plt Count 156 L MPV 9.9 Immature Gran % (Auto) 0.5 H Neut % (Auto) 79.8 H Lymph % (Auto) 12.8 L [place] % (Auto) 6.3 Eos % (Auto) 0.3 Baso % (Auto) 0.3 Lymph # (Auto) 0.9 L [place] # (Auto) 0.4 Eos # (Auto) 0.0 Baso # (Auto) 0.0 Abs Immat Gran (auto) 0.03 Absolute Neuts (auto) 5.3 Absolute Nucleated RBC 0.020 H Nucleated RBC % (auto) 0.3 H PT 10.6 INR 0.9 APTT 33.0 D-Dimer High Sensitivty 603 Sodium Potassium Chloride Carbon Dioxide Anion Gap BUN Creatinine Estim Creat Clear Calc Estimated GFR POC Glucose Random Glucose Calcium Magnesium Total Bilirubin Direct Bilirubin AST ALT Alkaline Phosphatase Total Creatine Kinase Troponin I High Sens 10.6 B-Natriuretic Peptide Total Protein Albumin Lipase TSH Urine Color Urine Appearance Urine pH Ur Specific [place] Urine Protein Urine Glucose (UA) Urine Ketones Urine Blood Urine Nitrite Ur Leukocyte Esterase Urine RBC Urine WBC Ur Squamous Epith Cells Urine Bacteria Hyaline Casts Stool Occult Blood Urine Opiates Screen Urine Fentanyl Screen Ur Barbiturates Screen Ur Phencyclidine Scrn Ur Amphetamines Screen U Benzodiazepines Scrn Urine Cocaine Screen U Marijuana (THC) Screen Ethyl Alcohol Influenza Type A (PCR) Influenza Type B (PCR) RSV RNA Qual (PCR) SARS-CoV-2 RNA (RT-PCR) 01/29/23 01/29/23 01/29/23 18:14 18:14 18:14 WBC RBC Hgb Hct MCV MCH MCHC RDW Plt Count MPV Immature Gran % (Auto) Neut % (Auto) Lymph % (Auto) [place] % (Auto) Eos % (Auto) Baso % (Auto) Lymph # (Auto) [place] # (Auto) Eos # (Auto) Baso # (Auto) Abs Immat Gran (auto) Absolute Neuts (auto) Absolute Nucleated RBC Nucleated RBC % (auto) PT INR APTT Cancelled D-Dimer High Sensitivty Sodium Potassium Chloride Carbon Dioxide Anion Gap BUN Creatinine Estim Creat Clear Calc Estimated GFR POC Glucose Random Glucose Calcium Magnesium Total Bilirubin Direct Bilirubin AST ALT Alkaline Phosphatase Total Creatine Kinase Troponin I High Sens B-Natriuretic Peptide < 10 Total Protein Albumin Lipase TSH 1.33 Urine Color Urine Appearance Urine pH Ur Specific [place] Urine Protein Urine Glucose (UA) Urine Ketones Urine Blood Urine Nitrite Ur Leukocyte Esterase Urine RBC Urine WBC Ur Squamous Epith Cells Urine Bacteria Hyaline Casts Stool Occult Blood Urine Opiates Screen Urine Fentanyl Screen Ur Barbiturates Screen Ur Phencyclidine Scrn Ur Amphetamines Screen U Benzodiazepines Scrn Urine Cocaine Screen U Marijuana (THC) Screen Ethyl Alcohol 120 Influenza Type A (PCR) Influenza Type B (PCR) RSV RNA Qual (PCR) SARS-CoV-2 RNA (RT-PCR) 01/29/23 01/29/23 01/29/23 18:14 18:26 19:19 WBC RBC Hgb Hct MCV MCH MCHC RDW Plt Count MPV Immature Gran % (Auto) Neut % (Auto) Lymph % (Auto) [place] % (Auto) Eos % (Auto) Baso % (Auto) Lymph # (Auto) [place] # (Auto) Eos # (Auto) Baso # (Auto) Abs Immat Gran (auto) Absolute Neuts (auto) Absolute Nucleated RBC Nucleated RBC % (auto) PT INR APTT D-Dimer High Sensitivty Sodium 141 Potassium 3.0 L Chloride 90 L Carbon Dioxide 15 L Anion Gap 39 H BUN 12 Creatinine 0.87 Estim Creat Clear Calc 83.5 Estimated GFR > 60 POC Glucose Random Glucose 83 Calcium 9.0 Magnesium 2.0 Total Bilirubin 1.3 H Direct Bilirubin 0.5 AST 201 H ALT 78 H Alkaline Phosphatase 145 H Total Creatine Kinase 158 Troponin I High Sens B-Natriuretic Peptide Total Protein 7.9 Albumin 4.8 Lipase 30 TSH Urine Color Urine Appearance Urine pH Ur Specific [place] Urine Protein Urine Glucose (UA) Urine Ketones Urine Blood Urine Nitrite Ur Leukocyte Esterase Urine RBC Urine WBC Ur Squamous Epith Cells Urine Bacteria Hyaline Casts Stool Occult Blood POSITIVE Urine Opiates Screen Urine Fentanyl Screen Ur Barbiturates Screen Ur Phencyclidine Scrn Ur Amphetamines Screen U Benzodiazepines Scrn Urine Cocaine Screen U Marijuana (THC) Screen Ethyl Alcohol Influenza Type A (PCR) NEGATIVE Influenza Type B (PCR) NEGATIVE RSV RNA Qual (PCR) NEGATIVE SARS-CoV-2 RNA (RT-PCR) NEGATIVE 01/29/23 01/29/23 01/30/23 19:19 21:37 06:52 WBC RBC Hgb Hct MCV MCH MCHC RDW Plt Count MPV Immature Gran % (Auto) Neut % (Auto) Lymph % (Auto) [place] % (Auto) Eos % (Auto) Baso % (Auto) Lymph # (Auto) [place] # (Auto) Eos # (Auto) Baso # (Auto) Abs Immat Gran (auto) Absolute Neuts (auto) Absolute Nucleated RBC Nucleated RBC % (auto) PT INR APTT D-Dimer High Sensitivty Sodium 139 Potassium 3.2 L Chloride 94 L Carbon Dioxide 22 Anion Gap 26 H BUN 10 Creatinine 1.20 Estim Creat Clear Calc 65.9 Estimated GFR > 60 POC Glucose 138 H Random Glucose 95 Calcium 8.7 Magnesium 1.8 Total Bilirubin Direct Bilirubin AST ALT Alkaline Phosphatase Total Creatine Kinase Troponin I High Sens 11.9 B-Natriuretic Peptide Total Protein Albumin Lipase TSH Urine Color Urine Appearance Urine pH Ur Specific [place] Urine Protein Urine Glucose (UA) Urine Ketones Urine Blood Urine Nitrite Ur Leukocyte Esterase Urine RBC Urine WBC Ur Squamous Epith Cells Urine Bacteria Hyaline Casts Stool Occult Blood Urine Opiates Screen Urine Fentanyl Screen Ur Barbiturates Screen Ur Phencyclidine Scrn Ur Amphetamines Screen U Benzodiazepines Scrn Urine Cocaine Screen U Marijuana (THC) Screen Ethyl Alcohol Influenza Type A (PCR) Influenza Type B (PCR) RSV RNA Qual (PCR) SARS-CoV-2 RNA (RT-PCR) 01/30/23 01/30/23 01/30/23 07:12 11:06 11:20 WBC RBC Hgb Hct MCV MCH MCHC RDW Plt Count MPV Immature Gran % (Auto) Neut % (Auto) Lymph % (Auto) [place] % (Auto) Eos % (Auto) Baso % (Auto) Lymph # (Auto) [place] # (Auto) Eos # (Auto) Baso # (Auto) Abs Immat Gran (auto) Absolute Neuts (auto) Absolute Nucleated RBC Nucleated RBC % (auto) PT INR APTT D-Dimer High Sensitivty Sodium Potassium Chloride Carbon Dioxide Anion Gap BUN Creatinine Estim Creat Clear Calc Estimated GFR POC Glucose 107 120 H Random Glucose Calcium Magnesium Total Bilirubin Direct Bilirubin AST ALT Alkaline Phosphatase Total Creatine Kinase Troponin I High Sens B-Natriuretic Peptide Total Protein Albumin Lipase TSH Urine Color Yellow Urine Appearance Clear Urine pH 6.5 Ur Specific [place] >= 1.030 H Urine Protein 100 (2+) H Urine Glucose (UA) Negative Urine Ketones >=160 Urine Blood Small (1+) H Urine Nitrite Negative Ur Leukocyte Esterase Negative Urine RBC 6-10 H Urine WBC 6-10 H Ur Squamous Epith Cells 0-2 Urine Bacteria None Seen Hyaline Casts 3-5 Stool Occult Blood Urine Opiates Screen Urine Fentanyl Screen Ur Barbiturates Screen Ur Phencyclidine Scrn Ur Amphetamines Screen U Benzodiazepines Scrn Urine Cocaine Screen U Marijuana (THC) Screen Ethyl Alcohol Influenza Type A (PCR) Influenza Type B (PCR) RSV RNA Qual (PCR) SARS-CoV-2 RNA (RT-PCR) 01/30/23 01/30/23 01/30/23 11:20 11:46 16:18 WBC RBC Hgb 11.5 L Hct 32.6 L MCV MCH MCHC RDW Plt Count MPV Immature Gran % (Auto) Neut % (Auto) Lymph % (Auto) [place] % (Auto) Eos % (Auto) Baso % (Auto) Lymph # (Auto) [place] # (Auto) Eos # (Auto) Baso # (Auto) Abs Immat Gran (auto) Absolute Neuts (auto) Absolute Nucleated RBC Nucleated RBC % (auto) PT INR APTT D-Dimer High Sensitivty Sodium Potassium Chloride Carbon Dioxide Anion Gap BUN Creatinine Estim Creat Clear Calc Estimated GFR POC Glucose 155 H Random Glucose Calcium Magnesium Total Bilirubin Direct Bilirubin AST ALT Alkaline Phosphatase Total Creatine Kinase Troponin I High Sens B-Natriuretic Peptide Total Protein Albumin Lipase TSH Urine Color Urine Appearance Urine pH Ur Specific [place] Urine Protein Urine Glucose (UA) Urine Ketones Urine Blood Urine Nitrite Ur Leukocyte Esterase Urine RBC Urine WBC Ur Squamous Epith Cells Urine Bacteria Hyaline Casts Stool Occult Blood Urine Opiates Screen Not Detected Urine Fentanyl Screen Not Detected Ur Barbiturates Screen POSITIVE H Ur Phencyclidine Scrn Not Detected Ur Amphetamines Screen Not Detected U Benzodiazepines Scrn Not Detected Urine Cocaine Screen Not Detected U Marijuana (THC) Screen POSITIVE H Ethyl Alcohol Influenza Type A (PCR) Influenza Type B (PCR) RSV RNA Qual (PCR) SARS-CoV-2 RNA (RT-PCR) 01/30/23 01/30/23 01/30/23 20:09 20:09 20:29 WBC RBC Hgb 11.8 L Hct 33.5 L MCV MCH MCHC RDW Plt Count MPV Immature Gran % (Auto) Neut % (Auto) Lymph % (Auto) [place] % (Auto) Eos % (Auto) Baso % (Auto) Lymph # (Auto) [place] # (Auto) Eos # (Auto) Baso # (Auto) Abs Immat Gran (auto) Absolute Neuts (auto) Absolute Nucleated RBC Nucleated RBC % (auto) PT INR APTT D-Dimer High Sensitivty Sodium 136 Potassium 3.7 Chloride 92 L Carbon Dioxide 29 Anion Gap 19 BUN 7 L Creatinine 1.14 Estim Creat Clear Calc 69.4 Estimated GFR > 60 POC Glucose 104 Random Glucose 90 Calcium 8.9 Magnesium Total Bilirubin Direct Bilirubin AST ALT Alkaline Phosphatase Total Creatine Kinase Troponin I High Sens B-Natriuretic Peptide Total Protein Albumin Lipase TSH Urine Color Urine Appearance Urine pH Ur Specific [place] Urine Protein Urine Glucose (UA) Urine Ketones Urine Blood Urine Nitrite Ur Leukocyte Esterase Urine RBC Urine WBC Ur Squamous Epith Cells Urine Bacteria Hyaline Casts Stool Occult Blood Urine Opiates Screen Urine Fentanyl Screen Ur Barbiturates Screen Ur Phencyclidine Scrn Ur Amphetamines Screen U Benzodiazepines Scrn Urine Cocaine Screen U Marijuana (THC) Screen Ethyl Alcohol Influenza Type A (PCR) Influenza Type B (PCR) RSV RNA Qual (PCR) SARS-CoV-2 RNA (RT-PCR) 01/31/23 01/31/23 01/31/23 06:39 06:39 07:06 WBC 4.9 RBC 3.22 L Hgb 10.8 L Hct 30.7 L MCV 95.3 MCH 33.5 H MCHC 35.2 RDW 13.2 Plt Count 122 L MPV 11.0 Immature Gran % (Auto) Neut % (Auto) Lymph % (Auto) [place] % (Auto) Eos % (Auto) Baso % (Auto) Lymph # (Auto) [place] # (Auto) Eos # (Auto) Baso # (Auto) Abs Immat Gran (auto) Absolute Neuts (auto) Absolute Nucleated RBC 0.000 Nucleated RBC % (auto) 0.0 PT INR APTT D-Dimer High Sensitivty Sodium 139 Potassium 2.8 L D Chloride 95 L Carbon Dioxide 26 Anion Gap 21 H BUN 5 L Creatinine 0.92 Estim Creat Clear Calc 86.0 Estimated GFR > 60 POC Glucose 109 Random Glucose 96 Calcium 8.6 Magnesium Total Bilirubin Direct Bilirubin AST ALT Alkaline Phosphatase Total Creatine Kinase Troponin I High Sens B-Natriuretic Peptide Total Protein Albumin Lipase TSH Urine Color Urine Appearance Urine pH Ur Specific [place] Urine Protein Urine Glucose (UA) Urine Ketones Urine Blood Urine Nitrite Ur Leukocyte Esterase Urine RBC Urine WBC Ur Squamous Epith Cells Urine Bacteria Hyaline Casts Stool Occult Blood Urine Opiates Screen Urine Fentanyl Screen Ur Barbiturates Screen Ur Phencyclidine Scrn Ur Amphetamines Screen U Benzodiazepines Scrn Urine Cocaine Screen U Marijuana (THC) Screen Ethyl Alcohol Influenza Type A (PCR) Influenza Type B (PCR) RSV RNA Qual (PCR) SARS-CoV-2 RNA (RT-PCR) 01/31/23 11:22 WBC RBC Hgb Hct MCV MCH MCHC RDW Plt Count MPV Immature Gran % (Auto) Neut % (Auto) Lymph % (Auto) [place] % (Auto) Eos % (Auto) Baso % (Auto) Lymph # (Auto) [place] # (Auto) Eos # (Auto) Baso # (Auto) Abs Immat Gran (auto) Absolute Neuts (auto) Absolute Nucleated RBC Nucleated RBC % (auto) PT INR APTT D-Dimer High Sensitivty Sodium Potassium Chloride Carbon Dioxide Anion Gap BUN Creatinine Estim Creat Clear Calc Estimated GFR POC Glucose 91 Random Glucose Calcium Magnesium Total Bilirubin Direct Bilirubin AST ALT Alkaline Phosphatase Total Creatine Kinase Troponin I High Sens B-Natriuretic Peptide Total Protein Albumin Lipase TSH Urine Color Urine Appearance Urine pH Ur Specific [place] Urine Protein Urine Glucose (UA) Urine Ketones Urine Blood Urine Nitrite Ur Leukocyte Esterase Urine RBC Urine WBC Ur Squamous Epith Cells Urine Bacteria Hyaline Casts Stool Occult Blood Urine Opiates Screen Urine Fentanyl Screen Ur Barbiturates Screen Ur Phencyclidine Scrn Ur Amphetamines Screen U Benzodiazepines Scrn Urine Cocaine Screen U Marijuana (THC) Screen Ethyl Alcohol Influenza Type A (PCR) Influenza Type B (PCR) RSV RNA Qual (PCR) SARS-CoV-2 RNA (RT-PCR) Airway Mallampati Class: II TM Dist: <=3cm Neck ROM: Full Loose/Missing/Broken Teeth: Yes and Upper Heart: ok Lungs: ok Assessment and Plan Assessment Anesthesia Assessment: Anesthesia Plan Discussed and Chart Reviewed Final Anesthetic Review Family History of Problems with Anesthesia: No History of Problems with Anesthesia: No NPO: Yes ASA Class: III Final Preanesthetic Review: No Changes in Pt Med Stat, Meds/Allgs Chart Reviewed, Consent Obtained/Reviewed and Anes Risks/Benef Reviewed Patient Risk: Intermediate Procedure Risk: Intermediate Anesthetic Plan Anesthetic Plan: MAC: and Agree w/ Assess. and Plan Disposition: Standard PACU
--- NOTE | 2023-01-31 13:21 | HO.PM.IMPN ---
Subjective Subjective Date of Service: 01/31/23 Interval History: f/u on alcohol withdrawal gib Physical Exam Vital Signs: Vital Signs: Last Vital Signs Temp 98.7 F 01/31/23 12:58 Pulse 93 01/31/23 12:58 Resp 16 01/31/23 12:58 BP 157/73 H 01/31/23 12:58 Pulse Ox 98 01/31/23 12:58 O2 Del Method 01/31/23 12:58 BMI result Body Mass Index 27.7 Objective Data Active Medications Acetaminophen (Acetaminophen 325 Mg Tablet) 650 mg PO Q6H PRN PRN Reason: Pain, Mild (Pain Scale 1-3) Diltiazem HCl (Diltiazem Hcl Cd 120 Mg Cap.Er.Deg) 120 mg PO DAILY [facility]; Protocol Last Admin: 01/31/23 08:58 Dose: 120 mg Documented By: ALLI Ferrous Sulfate (Ferrous Sulfate 324 Mg Tablet.Dr) 324 mg PO DAILY [facility] Last Admin: 01/31/23 08:59 Dose: Not Given Documented By: ALLI Non-Admin Reason: NPO Folic Acid (Folic Acid 1 Mg Tablet) 1 mg PO DAILY [facility] Stop: 02/01/23 21:14 Last Admin: 01/31/23 08:59 Dose: 1 mg Documented By: HERNANDEZ-ASH Folic Acid (Folic Acid 1 Mg Tablet) 1 mg PO DAILY [facility] Last Admin: 01/31/23 08:52 Dose: Not Given Documented By: ALLI Non-Admin Reason: Duplicate Order Glucose (Glucose Gel 15 Gm Gel..Gram.) 15 gm PO Q15M PRN; Protocol PRN Reason: per Hypoglycemia Standing Ord. Lactated Ringer's (Lr) 1,000 mls @ 100 mls/hr IVCONT .Q10H [facility] Last Admin: 01/31/23 13:09 Dose: Not Given Documented By: ALLI Non-Admin Reason: Off Unit: Surgery Dextrose (D10) 250 mls @ 750 mls/hr IV Q15M PRN; Protocol PRN Reason: per Hypoglycemia Standing Ord. Ceftriaxone Sodium 1 gm/ (Sodium Chloride) 50 mls @ 100 mls/hr IV Q24H [facility] Last Infusion: 01/30/23 22:58 Dose: 0 mls/hr Documented By: ANUP Metronidazole (Flagyl) 500 mg in 100 mls @ 100 mls/hr IV Q8H [facility] Last Infusion: 01/31/23 10:02 Dose: 0 mls/hr Documented By: HERNANDEZ-ASH Insulin Human Lispro (Insulin Lispro 100 Unit/Ml 3 Ml Vial) 0 unit SUBCUT QIDACHS [facility]; Protocol Last Admin: 01/31/23 11:29 Dose: Not Given Documented By: HERNANDEZ-SOFFA Non-Admin Reason: poc oor Multivitamins/Vitamin C (Multivitamin Tablet) 1 tab PO DAILY [facility] Stop: 02/01/23 21:14 Last Admin: 01/31/23 08:59 Dose: Not Given Documented By: HERNANDEZ-SOFFA Non-Admin Reason: NPO Pantoprazole Sodium (Pantoprazole Sodium 40 Mg/10 Ml Vial) 40 mg IVPUSH BID@0630,1630 [facility] Last Admin: 01/31/23 05:42 Dose: 40 mg Documented By: ANUP Pharmacy Consult (Consult Rx Perform Med Rec) 1 each MISCELLANE ONCE PRN PRN Reason: Consult order Pharmacy Consult (Consult Rx Etoh Phenob Im/Po) 1 each MISCELLANE ONCE PRN; Protocol PRN Reason: Consult order Phenobarbital (Phenobarbital 15 Mg Tablet) 45 mg PO BID [facility] Stop: 01/31/23 21:01 Last Admin: 01/31/23 08:58 Dose: 45 mg Documented By: HERNANDEZ-ASH Phenobarbital (Phenobarbital 30 Mg Tablet) 30 mg PO BID [facility] Stop: 02/02/23 21:01 Phenobarbital (Phenobarbital 15 Mg Tablet) 15 mg PO DAILY [facility] Stop: 02/04/23 09:01 Sertraline HCl (Sertraline Hcl 25 Mg Tablet) 25 mg PO DAILY [facility] Last Admin: 01/31/23 08:59 Dose: 25 mg Documented By: HERNANDEZ-ASH Sodium Chloride (0.9 % Sodium Chloride Flush 3 Ml Syringe) 3 ml IVFLUSH QSHIFT [facility] Last Admin: 01/31/23 12:22 Dose: Not Given Documented By: HERNANDEZ-SOFFA Non-Admin Reason: See Note Thiamine HCl (Thiamine Hcl 100 Mg Tablet) 100 mg PO DAILY [facility] Stop: 02/01/23 21:14 Last Admin: 01/31/23 08:59 Dose: 100 mg Documented By: ALLI Labs 01/31/23 06:39 01/31/23 06:39 Labs: Laboratory Results - last 24 hr 01/30/23 01/30/23 01/30/23 16:18 20:09 20:29 MCV MCH MCHC RDW Plt Count MPV Absolute Nucleated RBC Nucleated RBC % (auto) Anion Gap 19 Estim Creat Clear Calc 69.4 Estimated GFR > 60 POC Glucose 155 H 104 Random Glucose 90 Calcium 8.9 01/31/23 01/31/23 01/31/23 06:39 06:39 07:06 MCV 95.3 MCH 33.5 H MCHC 35.2 RDW 13.2 Plt Count 122 L MPV 11.0 Absolute Nucleated RBC 0.000 Nucleated RBC % (auto) 0.0 Anion Gap 21 H Estim Creat Clear Calc 86.0 Estimated GFR > 60 POC Glucose 109 Random Glucose 96 Calcium 8.6 01/31/23 11:22 MCV MCH MCHC RDW Plt Count MPV Absolute Nucleated RBC Nucleated RBC % (auto) Anion Gap Estim Creat Clear Calc Estimated GFR POC Glucose 91 Random Glucose Calcium Microbiology Microbiology Results: Microbiology 01/30/23 Unknown Urine Culture - Final Urine clean catch - Urine conner top No growth. Assessment and Plan (1) Hypokalemia: Status: Acute (2) Acute colitis: Status: Acute (3) Alcohol withdrawal: Status: Acute (4) Acute lower GI bleeding: Status: Acute Plan 57-year-old male with a PMH significant for?HTN, DM, and alcohol use disorder with previous withdrawal who presents to the ED with?multiple complaints: generalized weakness, tremors, chest pain, SOB, and fatigue. Pt will be admitted to the hospital on telemetry for treatment and evaluation of acute alcohol withdrawal. Acute alcohol withdrawal No tremors in extremities, no hallucinations continue Phenobarbital protocol Daily multivitamin, folic acid 1mg, Thiamine 100 mg daily,IV Protonix bid Follow lykev, Mag, BMP IVF: lactated ringers Addiction medicine consult CIWA scale Seizure protocols Acute GI bleed Pt with normocytic anemia: H&H 13.0/38.0-repeated trending down 10.8.5/30.7 today for EGD and colonoscopy today Acute colitis CTA suggestive of acute colitis, infectious versus inflammatory Empiric IV abx: ceftriaxone and Flagyl Chest pain/pressure Unlikely to be ACS EKG negative for ST elevations or depressions Troponins negative:? Initial 10.6 with repeat flat 11.9 D-Dimer elevated at 603 CTA with suboptimal bolus timing:? Negative for central pulmonary emboli, peripheral branches unable to be assessed Prolonged QT Patient's EKG showed QTc of 555 on tele qtc today- avoid QT-prolonging agents Monitor on , telemetry, repeat ECG Generalized weakness, fatigue Unclear etiology, possibly related to alcohol use disorder and decreased p.o. intake PT evaluation pprior to dc Transaminitis CTA showed significantly fatty infiltrated liver, likely secondary to alcohol use disorder Patient with no acute abdominal complaint, physical exam benign moniter lft's Diabetes SSI DVT Prophylaxis: Pneumatic boots Need for inpatient: ongoing work up for gib bleed Time Spent With Patient Time: Total time managing care of this patient today ____ minutes. Quality Stroke Does the patient have a stroke diagnosis?: No VTE Prior VTE?: No VTE Risk Level:: Medical - moderate - high VTE Device Contraindication: N/A - Device Ordered VTE Drug Contraindication: Treatment Not Indicated
--- NOTE | 2023-01-31 14:29 | PM.EVENT ---
Event Note Date of Service: 01/31/23 Event Note: EGD/Colonoscopy note dictated EGD shows mild gastritis, bx'd colonoscopy showed a 9 mm polyp, snared. diverticulosis, internal hemorrhoids and no colitis. advance diet f/u bx results oral ppi Time Spent With Patient Time: Total time managing care of this patient today ____ minutes.
[2023-01-31 16:41] LABS: Glucose, Whole Blood 104 mg/dL (60-115)
[2023-01-31 20:25] LABS: Glucose, Whole Blood 190 mg/dL (60-115)
[2023-01-31] MEDS: Insulin Lispro 100 UNIT/ML 3 ML VIAL SUBCUT (21:15)
[2023-01-31] MEDS: cefTRIAXone sodium 1 GM in 0.9 % Sodium Chloride 50 ML IV (22:06)
--- NOTE | 2023-01-31 23:48 | OP_ITS ---
SURGEON: Alirio Persaud MD INDICATIONS: Gastrointestinal bleeding. PREOPERATIVE DIAGNOSIS: POSTOPERATIVE DIAGNOSIS: PROCEDURE PERFORMED: ESTIMATED BLOOD LOSS: COMPLICATIONS: ANESTHESIA: ASSISTANTS: SPECIMENS: PROCEDURE: Upper endoscopy with biopsy, colonoscopy to the terminal ileum with snare polypectomy. MEDICATIONS: Monitored anesthesia care. DESCRIPTION OF PROCEDURE: The procedure was performed on 01/31/2023. A history and physical was performed the risks and benefits of the procedure were explained to the patient. Informed consent was obtained. The patient was placed in the left lateral decubitus position. The Olympus video gastroscope was introduced into the esophagus, stomach, and duodenum. Examination was performed and the scope was removed. He was repositioned for colonoscopy. Digital rectal exam was performed and was found to be normal. The Olympus pediatric video colonoscope was introduced into the rectum and advanced to the cecum without difficulty. The cecum was identified by transillumination, palpation, and identification of ileocecal valve. Examination was performed. The scope was removed. He tolerated both procedures well and was returned to the recovery area in stable condition. FINDINGS: Upper endoscopy: Esophagus: The esophagus was normal. There was no esophagitis. Stomach: The stomach showed mild erythema throughout the body consistent with gastritis. Biopsies were obtained from the antrum. There was no gastrointestinal bleeding. Duodenum: The bulb and second portion were normal. Colonoscopy: The terminal ileum was examined and appeared normal. The visualized colonic mucosa was within normal limits without evidence of masses or ulcers. At 50 cm from the anal verge was a 9 mm polyp, which was removed with a snare and recovered via suction. No other polyps were identified. There was moderate diverticulosis throughout the entire colon with no evidence of diverticular bleeding. There were moderate-sized internal hemorrhoids on retroflexed examination. There was some liquid stool coating the mucosa limiting the sensitivity of examination for detection of small polyps. This was washed and suctioned. IMPRESSION: 1. Gastritis. 2. Colon polyp. RECOMMENDATION: 1. Follow up biopsy results. 2. Continue proton pump inhibitor. 3. Advance diet. MD NARINDER Daily/STEPHANIE / [phone]
[2023-02-01] VITALS (7 sets, daily range): BP systolic 127–161; BP diastolic 80–97; PULSE 59–93; RESP 18–20; TEMP 36.2–37.5; O2SAT 95–97
--- NOTE | 2023-02-01 | ECG_ITS ---
Test Reason : prolonged qt Blood Pressure : / mmHG Vent. Rate : 073 BPM Atrial Rate : 073 BPM P-R Int : 138 ms QRS Dur : 100 ms QT Int : 478 ms P-R-T Axes : 042 -14 -03 degrees QTc Int : 526 ms Sinus rhythm with Premature atrial complexes Nonspecific T wave abnormality Abnormal ECG When compared with ECG of 29-JAN-2023 17:42, Premature atrial complexes are now Present ST now depressed in Anterior leads Nonspecific T wave abnormality now evident in Anterior leads Referred By: Antonio Duff Electronically Signed By:Edgar Smith
[2023-02-01] MEDS: 0.9 % Sodium Chloride Flush 3 ML SYRINGE IVFLUSH ×3 (00:50→17:43)
[2023-02-01] MEDS: metroNIDAZOLE/NS 500 MG/100 ML PIGGYBACK 100 MG IV ×3 (00:52→17:43)
[2023-02-01] MEDS: Acetaminophen 325 MG TABLET 650 MG PO ×2 (00:59→20:37)
[2023-02-01] MEDS: Omeprazole 20 MG CAPSULE.DR PO (05:46)
[2023-02-01 07:44] LABS: Glucose, Whole Blood 162 mg/dL (60-115)
[2023-02-01] MEDS: Insulin Lispro 100 UNIT/ML 3 ML VIAL SUBCUT (08:43)
[2023-02-01] MEDS: PHENobarbitaL 30 MG TABLET PO ×2 (08:44→20:37)
[2023-02-01] MEDS: Thiamine HCL 100 MG TABLET PO (08:45)
[2023-02-01] MEDS: dilTIAZem HCL CD 120 MG CAP.ER.DEG PO (08:45)
[2023-02-01] MEDS: Ferrous Sulfate 324 MG TABLET.DR PO (08:45)
[2023-02-01] MEDS: Sertraline HCL 25 MG TABLET PO (08:45)
[2023-02-01] MEDS: Multivitamin TABLET 1 TAB PO (08:45)
[2023-02-01] MEDS: Folic Acid 1 MG TABLET PO (08:46)
[2023-02-01] MEDS: ondansetron HCL 4 MG/2 ML VIAL IVPUSH (09:02)
[2023-02-01 11:23] LABS: Glucose, Whole Blood 143 mg/dL (60-115)
--- NOTE | 2023-02-01 11:41 | HO.POSTANES ---
Post Anesthesia Evaluation Post Anesthesia Evaluation Vital Signs: Vital Signs Temp Pulse Resp BP Pulse Ox O2 Del Method 02/01/23 11:19 98.8 F 75 20 161/97 H 95 Room Air 02/01/23 07:36 97.1 F 59 20 160/90 H 97 Room Air 02/01/23 04:00 97.9 F 62 18 131/88 95 Room Air Anesthesia: Monitored Mental Status: Awake Pain Control: Satisfactory Nausea/Vomiting: None Hydration: Adequate Anesthesia-Related Issues: No Anes. Related Issues
--- NOTE | 2023-02-01 13:56 | MHC.RECOVRN ---
Met with pt in 470 to discuss alcohol use. Pt laying in bed, awake, alert, easily engages in conversation, tangential. Pt reports having been using alcohol for 40+ years and has been in treatment many times, including [facility] admissions and sober housing. Most recently, pt was at [facility] x 1 year, approx 6 years ago. After that, pt moved into [facility] apartment in [place]. Pt reports pattern of alcohol use as binge drinking. Pt reports longest period in recovery was 2 years. Currently, pt reports 1/2 gallon gin over a few days and then not drinking for a short period of time before returning to use. Pt reports hx Vivitrol, at first reported it was helpful and later in the conversation said it was not. Pt difficult to engage in conversation solely related to alcohol use, pt frequently directs conversation to , girlfriend, children, leisure activities, and past employment. Attempted to educate patient regarding recovery resources and supports, however, pt redirects conversation away from substance use. Pt was provided with written recovery resources and information as well as t/w contact information for questions or concerns. Danielle Mercado APRN, aware.
--- NOTE | 2023-02-01 13:59 | MHC.CM.PN ---
Patient is not yet medically cleared for dc (IV Ceftriaxone, IV Flagyl); home is the goal and CM will continue to follow.
--- NOTE | 2023-02-01 14:20 | P.PNIM_ITS ---
Subjective Subjective Date of Service: 02/01/23 Interval History: f/u on alcohol withdrawal gib, EGD colonoscopy no bleeding, c/o of feeling weird likely due to alcohol Physical Exam Vital Signs: Vital Signs: Last Vital Signs Temp 98.8 F 02/01/23 11:19 Pulse 75 02/01/23 11:19 Resp 20 02/01/23 11:19 BP 161/97 H 02/01/23 11:19 Pulse Ox 95 02/01/23 13:37 O2 Del Method 02/01/23 13:37 BMI result Body Mass Index 27.7 Const: Other: General: AO X 3, no acute distress Resp: CTA bilateral CVS: S1,S2,RRR GI: +BS, NT, no distention Skin: No rash Neuro: motor grossly intact Psych: appropriate affect Objective Data Active Medications Acetaminophen (Acetaminophen 325 Mg Tablet) 650 mg PO Q6H PRN PRN Reason: Pain, Mild (Pain Scale 1-3) Last Admin: 02/01/23 00:59 Dose: 650 mg Documented By: DEBBIE Diltiazem HCl (Diltiazem Hcl Cd 120 Mg Cap.Er.Deg) 120 mg PO DAILY [facility]; Protocol Last Admin: 02/01/23 08:45 Dose: 120 mg Documented By: AGUSTIN Ferrous Sulfate (Ferrous Sulfate 324 Mg Tablet.Dr) 324 mg PO DAILY [facility] Last Admin: 02/01/23 08:45 Dose: 324 mg Documented By: AGUSTIN Folic Acid (Folic Acid 1 Mg Tablet) 1 mg PO DAILY [facility] Last Admin: 02/01/23 08:46 Dose: 1 mg Documented By: AGUSTIN Glucose (Glucose Gel 15 Gm Gel..Gram.) 15 gm PO Q15M PRN; Protocol PRN Reason: per Hypoglycemia Standing Ord. Dextrose (D10) 250 mls @ 750 mls/hr IV Q15M PRN; Protocol PRN Reason: per Hypoglycemia Standing Ord. Ceftriaxone Sodium 1 gm/ (Sodium Chloride) 50 mls @ 100 mls/hr IV Q24H [facility] Last Infusion: 01/31/23 22:44 Dose: 0 mls/hr Documented By: HEATHER Metronidazole (Flagyl) 500 mg in 100 mls @ 100 mls/hr IV Q8H [facility] Last Infusion: 02/01/23 10:40 Dose: 0 mls/hr Documented By: AGUSTIN Insulin Human Lispro (Insulin Lispro 100 Unit/Ml 3 Ml Vial) 0 unit SUBCUT QIDACHS [facility]; Protocol Last Admin: 02/01/23 11:36 Dose: Not Given Documented By: AGUSTIN Non-Admin Reason: No Insulin Coverage Multivitamins/Vitamin C (Multivitamin Tablet) 1 tab PO DAILY [facility] Stop: 02/01/23 21:14 Last Admin: 02/01/23 08:45 Dose: 1 tab Documented By: AGUSTIN Omeprazole (Omeprazole 20 Mg Capsule.Dr) 20 mg PO DAILY@0630 [facility] Last Admin: 02/01/23 05:46 Dose: 20 mg Documented By: DEBBIE Pharmacy Consult (Consult Rx Perform Med Rec) 1 each MISCELLANE ONCE PRN PRN Reason: Consult order Pharmacy Consult (Consult Rx Etoh Phenob Im/Po) 1 each MISCELLANE ONCE PRN; Protocol PRN Reason: Consult order Phenobarbital (Phenobarbital 30 Mg Tablet) 30 mg PO BID [facility] Stop: 02/02/23 21:01 Last Admin: 02/01/23 08:44 Dose: 30 mg Documented By: AGUSTIN Phenobarbital (Phenobarbital 15 Mg Tablet) 15 mg PO DAILY [facility] Stop: 02/04/23 09:01 Sertraline HCl (Sertraline Hcl 25 Mg Tablet) 25 mg PO DAILY [facility] Last Admin: 02/01/23 08:45 Dose: 25 mg Documented By: AGUSTIN Sodium Chloride (0.9 % Sodium Chloride Flush 3 Ml Syringe) 3 ml IVFLUSH QSHIFT [facility] Last Admin: 02/01/23 08:43 Dose: 3 ml Documented By: AGUSTIN Thiamine HCl (Thiamine Hcl 100 Mg Tablet) 100 mg PO DAILY [facility] Stop: 02/01/23 21:14 Last Admin: 02/01/23 08:45 Dose: 100 mg Documented By: AGUSTIN Labs 01/31/23 06:39 01/31/23 06:39 Labs: Laboratory Results - last 24 hr 01/31/23 01/31/23 02/01/23 16:35 20:20 07:39 POC Glucose 104 190 H 162 H 02/01/23 11:20 POC Glucose 143 H Assessment and Plan (1) Hypokalemia: Status: Acute (2) Acute colitis: Status: Acute (3) Alcohol withdrawal: Status: Acute (4) Acute lower GI bleeding: Status: Acute Plan 57-year-old male with a PMH significant for?HTN, DM, and alcohol use disorder with previous withdrawal who presents to the ED with?multiple complaints: generalized weakness, tremors, chest pain, SOB, and fatigue. Pt will be admitted to the hospital on telemetry for treatment and evaluation of acute alcohol withdrawal. Acute alcohol withdrawal No tremors in extremities, no hallucinations continue Phenobarbital protocol Daily multivitamin, folic acid 1mg, Thiamine 100 mg daily,IV Protonix bid Addiction medicine consult CIWA scale Seizure protocols Acute GI bleed Pt with normocytic anemia: H&H 13.0/38.0-repeated trending down 10.8.5/30.7 EGD and colonoscopy 01/31 Acute colitis CTA suggestive of acute colitis, infectious versus inflammatory Empiric IV abx: ceftriaxone and Flagyl--> PO Ceftin and Flagyl Chest pain/pressure--ACS ruled out, no PE Prolonged QT Patient's EKG showed QTc of 555 on tele qtc today- avoid QT-prolonging agents Monitor on , telemetry, repeat ECG Generalized weakness, fatigue Unclear etiology, possibly related to alcohol use disorder and decreased p.o. intake PT evaluation pprior to dc Transaminitis CTA showed significantly fatty infiltrated liver, likely secondary to alcohol use disorder Patient with no acute abdominal complaint, physical exam benign moniter lft's Diabetes SSI DVT Prophylaxis: Pneumatic boots Need for inpatient: ongoing work up for gib bleed Time Spent With Patient Time: Total time managing care of this patient today ____ minutes. Quality Stroke Does the patient have a stroke diagnosis?: No VTE Prior VTE?: No VTE Risk Level:: Medical - moderate - high VTE Device Contraindication: N/A - Device Ordered VTE Drug Contraindication: Treatment Not Indicated
[2023-02-01 15:38] LABS: Glucose, Whole Blood 139 mg/dL (60-115)
[2023-02-01 19:46] LABS: Glucose, Whole Blood 125 mg/dL (60-115)
[2023-02-02] MEDS: metroNIDAZOLE/NS 500 MG/100 ML PIGGYBACK 100 MG IV ×3 (01:15→18:26)
[2023-02-02 04:00] VITALS: BP 141/86; PULSE 72; RESP 20; TEMP 36.8; O2SAT 95
[2023-02-02] MEDS: Omeprazole 20 MG CAPSULE.DR PO (06:07)
[2023-02-02 07:26] VITALS: BP 149/84; PULSE 74; RESP 20; TEMP 36.5; O2SAT 97
[2023-02-02 08:02] LABS: Glucose, Whole Blood 151 mg/dL (60-115)
[2023-02-02] MEDS: 0.9 % Sodium Chloride Flush 3 ML SYRINGE IVFLUSH ×2 (08:42→17:04)
[2023-02-02] MEDS: Insulin Lispro 100 UNIT/ML 3 ML VIAL SUBCUT (08:42)
[2023-02-02] MEDS: Folic Acid 1 MG TABLET PO (08:43)
[2023-02-02] MEDS: Sertraline HCL 25 MG TABLET PO (08:43)
[2023-02-02] MEDS: dilTIAZem HCL CD 120 MG CAP.ER.DEG PO (08:43)
[2023-02-02] MEDS: Ferrous Sulfate 324 MG TABLET.DR PO (08:43)
[2023-02-02] MEDS: PHENobarbitaL 30 MG TABLET PO ×2 (08:43→21:46)
[2023-02-02 08:53] LABS: Hematocrit 32.2 % (42.0-52.0); Hemoglobin 11.5 g/dl (14.0-18.0); Mean Corpuscular HGB Conc 35.7 g/dl (31.0-36.0); Mean Corpuscular Hemoglobin 33.9 pg (27.0-33.0); Mean Platelet Volume 10.6 fL (9.4-12.4); Platelet Count 161 X10*3/uL (160-400); Red Blood Count 3.39 X10*6/uL (4.60-5.80); Red Cell Distribution Width 13.1 % (11.0-16.0)
[2023-02-02 09:06] LABS: Anion Gap 15 (12-20); Blood Urea Nitrogen 5 mg/dL (9-16); Calcium 9.2 mg/dL (8.4-10.2); Carbon Dioxide 32 mmol/L (22-29); Chloride 95 mmol/L (96-108); Creatinine Clr Calc Pharmacy 105.5; Estimated Glomerular Filt Rate > 60; Glucose Random 159 mg/dL (60-115); Potassium 2.7 mmol/L (3.3-5.1); Sodium 139 mmol/L (135-145)
[2023-02-02 10:40] VITALS: BP 135/87; PULSE 69; RESP 20; TEMP 36.7; O2SAT 96
[2023-02-02 10:56] LABS: Glucose, Whole Blood 88 mg/dL (60-115)
[2023-02-02] MEDS: Potassium Chloride Packet 20 MEQ PACKET 40 MEQ PO (11:19)
--- NOTE | 2023-02-02 12:12 | MHC.CM.PN ---
Patient has completed a HCP and it has been uploaded into [facility] and a copy has been placed on the chart.
[2023-02-02 12:57] LABS: Magnesium 1.5 mg/dL (1.6-2.6)
[2023-02-02 14:00] VITALS: O2SAT 95
--- NOTE | 2023-02-02 14:54 | P.EN_ITS ---
Event Note Date of Service: 02/02/23 Event Note: Addiction consult Please see copper roller handler printing note dated 02/01/2023 Time Spent With Patient Time: Total time managing care of this patient today ____ minutes.
--- NOTE | 2023-02-02 14:54 | PM.EVENT ---
Event Note Date of Service: 02/02/23 Event Note: Addiction consult Please see handkerchief cutter note dated 02/01/2023 Time Spent With Patient Time: Total time managing care of this patient today ____ minutes.
[2023-02-02] MEDS: Magnesium Sulfate/H2O 2 GM/50 ML PIGGYBACK IV (14:59)
[2023-02-02 16:00] VITALS: BP 164/93; PULSE 76; RESP 16; TEMP 37.3; O2SAT 99
--- NOTE | 2023-02-02 16:42 | MHC.RECOVRN ---
This caption writer went to meet w/ patient x's 2 to review if patient had any questions in regard to recovery supports. Patient had visitors in room, addiction team to return at later time.
[2023-02-02 17:12] LABS: Glucose, Whole Blood 134 mg/dL (60-115)
[2023-02-02 20:00] VITALS: BP 158/94; PULSE 72; RESP 16; TEMP 36.9; O2SAT 98
[2023-02-02 20:57] LABS: Glucose, Whole Blood 150 mg/dL (60-115)
[2023-02-02 21:05] LABS: Anion Gap 14 (12-20); Carbon Dioxide 33 mmol/L (22-29); Chloride 97 mmol/L (96-108); Potassium 3.3 mmol/L (3.3-5.1); Sodium 141 mmol/L (135-145)
[2023-02-02] MEDS: cefTRIAXone sodium 1 GM in 0.9 % Sodium Chloride 50 ML IV ×2 (21:46)
[2023-02-03] VITALS (8 sets, daily range): BP systolic 108–165; BP diastolic 67–99; PULSE 66–105; RESP 16–20; TEMP 36.6–37.4; O2SAT 94–100
[2023-02-03] MEDS: metroNIDAZOLE/NS 500 MG/100 ML PIGGYBACK 100 MG IV ×3 (00:55→17:41)
[2023-02-03] MEDS: 0.9 % Sodium Chloride Flush 3 ML SYRINGE IVFLUSH ×4 (00:59→22:42)
[2023-02-03] MEDS: Omeprazole 20 MG CAPSULE.DR PO (05:58)
[2023-02-03 07:21] LABS: Anion Gap 11 (12-20); Blood Urea Nitrogen 6 mg/dL (9-16); Calcium 8.6 mg/dL (8.4-10.2); Carbon Dioxide 35 mmol/L (22-29); Chloride 96 mmol/L (96-108); Creatinine Clr Calc Pharmacy 101.4; Estimated Glomerular Filt Rate > 60; Glucose Random 105 mg/dL (60-115); Potassium 3.2 mmol/L (3.3-5.1); Sodium 139 mmol/L (135-145)
[2023-02-03 07:27] LABS: Glucose, Whole Blood 118 mg/dL (60-115)
[2023-02-03] MEDS: dilTIAZem HCL CD 120 MG CAP.ER.DEG PO (08:26)
[2023-02-03] MEDS: Folic Acid 1 MG TABLET PO (08:26)
[2023-02-03] MEDS: Sertraline HCL 25 MG TABLET PO (08:26)
[2023-02-03] MEDS: PHENobarbitaL 15 MG TABLET PO (08:26)
[2023-02-03] MEDS: Ferrous Sulfate 324 MG TABLET.DR PO (08:27)
[2023-02-03 09:01] LABS: Hematocrit 29.1 % (42.0-52.0); Hemoglobin 10.3 g/dl (14.0-18.0); Mean Corpuscular HGB Conc 35.4 g/dl (31.0-36.0); Mean Corpuscular Hemoglobin 34.1 pg (27.0-33.0); Mean Corpuscular Volume 96.4 fL (80.0-98.0); Mean Platelet Volume 10.4 fL (9.4-12.4); Platelet Count 187 X10*3/uL (160-400); Red Blood Count 3.02 X10*6/uL (4.60-5.80); Red Cell Distribution Width 13.9 % (11.0-16.0); White Blood Count 4.7 X10*3/uL (4.8-10.8)
[2023-02-03] MEDS: Potassium Chloride ER 20 MEQ TAB.ER.PRT 40 MEQ PO (10:19)
--- NOTE | 2023-02-03 10:41 | MHC.CM.PN ---
Per ROUNDS discussion, Patient is not yet medically cleared for dc (C/O blood in stool/MD to ask GI to re-eval, K being replaced); PT is now recommending str and cM will continue to follow.
--- NOTE | 2023-02-03 10:52 | HO.PM.IMPN ---
Subjective Subjective Date of Service: 02/03/23 Interval History: f/u on alcohol withdrawal gib, EGD colonoscopy no bleeding, reporting multiple episodes of bright red blood in the stool Physical Exam Vital Signs: Vital Signs: Last Vital Signs Temp 98.8 F 02/03/23 07:07 Pulse 79 02/03/23 10:18 Resp 16 02/03/23 07:07 BP 142/80 H 02/03/23 10:18 Pulse Ox 94 02/03/23 10:18 O2 Del Method 02/03/23 07:07 BMI result Body Mass Index 27.7 Const: Other: General: AO X 3, no acute distress Resp: CTA bilateral CVS: S1,S2,RRR GI: +BS, NT, no distention Skin: No rash Neuro: motor grossly intact Psych: appropriate affect Objective Data Active Medications Acetaminophen (Acetaminophen 325 Mg Tablet) 650 mg PO Q6H PRN PRN Reason: Pain, Mild (Pain Scale 1-3) Last Admin: 02/01/23 20:37 Dose: 650 mg Documented By: STEPHANIE Diltiazem HCl (Diltiazem Hcl Cd 120 Mg Cap.Er.Deg) 120 mg PO DAILY [facility]; Protocol Last Admin: 02/03/23 08:26 Dose: 120 mg Documented By: NICOLAS Ferrous Sulfate (Ferrous Sulfate 324 Mg Tablet.Dr) 324 mg PO DAILY [facility] Last Admin: 02/03/23 08:27 Dose: 324 mg Documented By: NICOLAS Folic Acid (Folic Acid 1 Mg Tablet) 1 mg PO DAILY [facility] Last Admin: 02/03/23 08:26 Dose: 1 mg Documented By: NICOLAS Glucose (Glucose Gel 15 Gm Gel..Gram.) 15 gm PO Q15M PRN; Protocol PRN Reason: per Hypoglycemia Standing Ord. Dextrose (D10) 250 mls @ 750 mls/hr IV Q15M PRN; Protocol PRN Reason: per Hypoglycemia Standing Ord. Ceftriaxone Sodium 1 gm/ (Sodium Chloride) 50 mls @ 100 mls/hr IV Q24H [facility] Last Infusion: 02/02/23 22:56 Dose: 0 mls/hr Documented By: HERNANDEZ-LILIAN Metronidazole (Flagyl) 500 mg in 100 mls @ 100 mls/hr IV Q8H [facility] Last Infusion: 02/03/23 10:16 Dose: 0 mls/hr Documented By: NICOLAS Insulin Human Lispro (Insulin Lispro 100 Unit/Ml 3 Ml Vial) 0 unit SUBCUT QIDACHS [facility]; Protocol Last Admin: 02/03/23 08:31 Dose: Not Given Documented By: NICOLAS Non-Admin Reason: No Insulin Coverage Omeprazole (Omeprazole 20 Mg Capsule.Dr) 20 mg PO DAILY@0630 [facility] Last Admin: 02/03/23 05:58 Dose: 20 mg Documented By: ANUP Pharmacy Consult (Consult Rx Perform Med Rec) 1 each MISCELLANE ONCE PRN PRN Reason: Consult order Pharmacy Consult (Consult Rx Etoh Phenob Im/Po) 1 each MISCELLANE ONCE PRN; Protocol PRN Reason: Consult order Phenobarbital (Phenobarbital 15 Mg Tablet) 15 mg PO DAILY [facility] Stop: 02/04/23 09:01 Last Admin: 02/03/23 08:26 Dose: 15 mg Documented By: NICOLAS Sertraline HCl (Sertraline Hcl 25 Mg Tablet) 25 mg PO DAILY [facility] Last Admin: 02/03/23 08:26 Dose: 25 mg Documented By: NICOLAS Sodium Chloride (0.9 % Sodium Chloride Flush 3 Ml Syringe) 3 ml IVFLUSH QSHIFT [facility] Last Admin: 02/03/23 08:27 Dose: 3 ml Documented By: NICOLAS Labs 02/03/23 06:47 02/03/23 06:47 Labs: Laboratory Results - last 24 hr 02/02/23 02/02/23 02/02/23 08:25 10:42 16:58 MCV MCH MCHC RDW Plt Count MPV Absolute Nucleated RBC Nucleated RBC % (auto) Anion Gap Estim Creat Clear Calc Estimated GFR POC Glucose 88 134 H Random Glucose Calcium Magnesium 1.5 L 02/02/23 02/02/23 02/03/23 20:37 20:54 06:47 MCV MCH MCHC RDW Plt Count MPV Absolute Nucleated RBC Nucleated RBC % (auto) Anion Gap 14 11 L Estim Creat Clear Calc 101.4 Estimated GFR > 60 POC Glucose 150 H Random Glucose 105 Calcium 8.6 D Magnesium 02/03/23 02/03/23 06:47 07:06 MCV 96.4 MCH 34.1 H MCHC 35.4 RDW 13.9 Plt Count 187 MPV 10.4 Absolute Nucleated RBC 0.000 Nucleated RBC % (auto) 0.0 Anion Gap Estim Creat Clear Calc Estimated GFR POC Glucose 118 H Random Glucose Calcium Magnesium Assessment and Plan (1) Hypokalemia: Status: Acute (2) Acute colitis: Status: Acute (3) Alcohol withdrawal: Status: Acute (4) Acute lower GI bleeding: Status: Acute Plan 57-year-old male with a PMH significant for?HTN, DM, and alcohol use disorder with previous withdrawal who presents to the ED with?multiple complaints: generalized weakness, tremors, chest pain, SOB, and fatigue. Pt will be admitted to the hospital on telemetry for treatment and evaluation of acute alcohol withdrawal. Acute alcohol withdrawal--resolved, no signs of withdrawal at this time, continue Pheno Acute GI bleed Pt with normocytic anemia: H&H 13.0/38.0-repeated trending down 10.8.5/30.7 EGD and colonoscopy 01/31: EGD shows mild gastritis, bx'd colonoscopy showed a 9 mm polyp, snared. diverticulosis, internal hemorrhoids and no colitis. Pt reporting more blood, so will discuss with GI again Acute colitis CTA suggestive of acute colitis, infectious versus inflammatory Empiric IV abx: ceftriaxone and Flagyl--> PO Ceftin and Flagyl at discharge Chest pain/pressure--ACS ruled out, no PE Prolonged QT Patient's EKG showed QTc of 555 on tele qtc today- repeat unchanged, correct potassium and magnesium Generalized weakness, fatigue Unclear etiology, possibly related to alcohol use disorder and decreased p.o. intake, and low k and low mag PT evaluation pprior to dc Transaminitis CTA showed significantly fatty infiltrated liver, likely secondary to alcohol use disorder Patient with no acute abdominal complaint, physical exam benign moniter lft's Diabetes SSI DVT Prophylaxis: Pneumatic boots Need for inpatient: ongoing work up for gib bleed Time Spent With Patient Time: Total time managing care of this patient today ____ minutes. Quality Stroke Does the patient have a stroke diagnosis?: No VTE Prior VTE?: No VTE Risk Level:: Medical - moderate - high VTE Device Contraindication: N/A - Device Ordered VTE Drug Contraindication: Treatment Not Indicated
[2023-02-03 11:14] LABS: Magnesium 1.7 mg/dL (1.6-2.6)
[2023-02-03 15:37] LABS: Glucose, Whole Blood 112 mg/dL (60-115)
[2023-02-03] MEDS: Hydrocortisone 2.5 % Rectal Cr 30 GM TUBE 1 APPL PR (15:55)
--- NOTE | 2023-02-03 18:29 | PC.NURSE ---
Pt is alert and oriented x3. Denies pain or discomfort. Pt continues to have bright red bleeding per rectum. aware. Pt started on Preparation Hto his rectal area. Another GI consult put in. Pt continues on IV ABT therapy for colitis.
[2023-02-03 19:37] LABS: Glucose, Whole Blood 121 mg/dL (60-115)
[2023-02-03] MEDS: Acetaminophen 325 MG TABLET 650 MG PO (22:38)
[2023-02-03] MEDS: cefTRIAXone sodium 1 GM in 0.9 % Sodium Chloride 50 ML IV (22:39)
[2023-02-04] VITALS: BP 148/84; PULSE 72; RESP 20; TEMP 36.1; O2SAT 98
[2023-02-04] MEDS: metroNIDAZOLE/NS 500 MG/100 ML PIGGYBACK 100 MG IV (01:56)
[2023-02-04 03:40] VITALS: BP 132/77; PULSE 76; RESP 20; TEMP 36.3; O2SAT 96
[2023-02-04] MEDS: Omeprazole 20 MG CAPSULE.DR PO (05:53)
[2023-02-04 07:47] VITALS: BP 139/80; PULSE 71; RESP 18; TEMP 36.6; O2SAT 98
[2023-02-04 07:57] LABS: Glucose, Whole Blood 102 mg/dL (60-115)
--- NOTE | 2023-02-04 10:09 | P.DS_ITS ---
DS: Providers Provider Date of Service: 02/04/23 Date of admission: 01/29/23 20:57 Primary care physician: Romel Cornejo III, MD Consults: 01/29/23 21:02 Addiction Medicine Routine Consulting Provider: Addiction Covering Reason for consultation: Alcohol withdrawal 01/29/23 21:04 Consult to Gastroenterology Routine Consulting Provider: Alirio Persaud Reason for consultation: BRB per rectum, ?coffee-ground emesis in pt with EtOH withdrawal 01/30/23 09:54 Consult to Care Team Routine Comment: Reason for consultation: depression 02/04/23 10:07 Consult to General Surgery Routine Consulting Provider: [facility] [place] General Surgeons Reason for consultation: bleeding hemrhoid Has provider been notified: No DS: Diagnosis Discharge Diagnosis (1) Hypokalemia: Status: Acute (2) Acute colitis: Status: Acute (3) Alcohol withdrawal: Status: Acute (4) Acute lower GI bleeding: Status: Acute DS: Summary Hospital Course Hospital Course: Attending physician on admission: Benito Solares Chief Complaint: SOB, tremors Pt is a 57-year-old male with a PMH significant for?HTN, DM, GI ulcers, and alcohol use disorder with previous withdrawal who presents to the ED with?multiple complaints: generalized weakness, tremors, chest pain, SOB, and fatigue. Pt states his symptoms began 2-3 weeks ago when he started experiencing generalized weakness, fatigue, fever, chills, and dizziness. Also been having intermittent central, non-radiating chest pain/pressure and shortness of breath with exertion. Pt states he was sober for a few months prior to this, but feeling so ill caused him to start drinking again. Has been drinking 10-15+ mixed-gin drinks daily, with last drink shortly prior to presentation. Pt claims he came to the ED because a couple of days ago he noticed a large amount of bright red blood when he wiped after having a bowel movement. Denies having a repeat episode since. Patient also has had nausea and vomiting. Daughter is at bedside, notes vomitus this morning looked like coffee-grounds. Pt feeling increased anxiety, though no audio or visual hallucinations. Denies headache, changes to vision. No abdominal pain. Of note, pt says he has a history of GI ulcers, but is not sure where they are located. In the ED patient was afebrile, tachycardic at 105, and hypertensive at 173/108. Labs were significant for mild normocytic anemia of 13.0/38.0 (baseline unknown), potassium 3.0, total bilirubin of 1.3, AST of 201, ALT 78, alk-phos of 145, initial troponin 10.6 with repeat flat at 11.9, D-dimer elevated at 06:03, and BNP negative.? Stool positive for occult blood.? Patient's alcohol level 120. CXR showed no evidence of acute disease.? CTA negative for central pulmonary emboli, but unable to obsess peripheral branches.? CTA also showed possible infectious or inflammatory colitis and significant fatty infiltrated liver. EKG demonstrated normal sinus rhythm with a prolonged QTc of 555 with no evidence of ST elevations or depressions. Pt was treated with lorazepam and placed on phenobarb protocol. Pt will be admitted to the hospital on telemetry for treatment and evaluation of acute alcohol withdrawal. Hospital course: Acute GI bleed Pt with normocytic anemia: H&H 13.0/38.0-repeated trending down 10.8.5/30.7 EGD and colonoscopy 01/31: EGD shows mild gastritis, bx'd colonoscopy showed a 9 mm polyp, snared. diverticulosis, internal hemorrhoids and no colitis. Pt reporting more blood, and was discussed with gI recommended hemorrhoid creaam and made referal to surgery for Acute colitis CTA suggestive of acute colitis, infectious versus inflammatory Empiric IV abx: ceftriaxone and Flagyl--> PO Ceftin and Flagyl at discharge x 6 days, no fever, no abdominal pain, so no further antibitiocs at this Chest pain/pressure--ACS ruled out, no PE Prolonged QT Patient's EKG showed QTc of 555 on tele qtc today- repeat unchanged, correct potassium and magnesium Generalized weakness, fatigue Unclear etiology, possibly related to alcohol use disorder and decreased p.o. intake, and low k and low mag PT evaluation, initially recommended rehab but he has been doing well ambulating and doesn't want rehab Transaminitis CTA showed significantly fatty infiltrated liver, likely secondary to alcohol use disorder Patient with no acute abdominal complaint, physical exam benign moniter lft's, outpatient follow up with PCP Diabetes SSI Time Spent with Patient Time attestation: Total time managing care of this patient today ____ minutes. Discharge coordination time: Greater than 30 minutes Quality: Safe Use of Opioids Does Pt have an Active Cancer Diagnosis on the Problem List?: No Quality: Stroke Does the patient have a stroke diagnosis?: No Physical Exam Vital Signs: Vital Signs: Last Vital Signs Temp 97.9 F 02/04/23 07:47 Pulse 71 02/04/23 07:47 Resp 18 02/04/23 07:47 BP 139/80 02/04/23 07:47 Pulse Ox 98 02/04/23 07:47 O2 Del Method 02/04/23 07:47 BMI result Body Mass Index 27.7 DS: Data Data Completed and Pending Completed studies during hospitalization [Text1]: Pending at discharge 01/31/23 13:55 Surgical [PTH] Routine Labs on day of discharge: Laboratory Results - last 24 hr 02/03/23 02/03/23 02/03/23 06:47 15:30 19:23 POC Glucose 112 121 H Magnesium 1.7 02/04/23 07:49 POC Glucose 102 Magnesium Discharge Plan Discharge Anticipated Discharge Date/Time: 02/04/23 10:08 Patient Disposition: Home, Self-Care Discharge Diagnosis: GI bleeding, hemorrhoid, Referrals: Romel Cornejo III, MD [Primary Care Provider] - 1 Week Discharge Medications: Continued lisinopril 20 mg tablet 1 tab PO DAILY omeprazole 40 mg capsule,delayed release(DR/EC) 1 cap PO DAILY sertraline 25 mg tablet 1 tab PO DAILY diltiazem HCl 120 mg capsule,extended release 24hr 1 cap PO DAILY folic acid 1 mg tablet 1 tab PO DAILY ferrous sulfate 324 mg (65 mg iron) Tablet,Delayed Release (Dr/Ec) 324 mg PO DAILY Held aspirin [Aspir-81] 81 mg Tablet,Delayed Release (Dr/Ec) 81 mg PO DAILY Hold Instructions: Resume on 02/10/23. Diet: Advance to usual diet Activity on Discharge: As tolerated Stand Alone Forms: Patient Portal Discharge page Care Plan Goals: full recovery Health Concerns: rectal bleed hemorrhoid alcohol use desorder hypokalemia Plan of Treatment: avoid alcohol follow up with your Doctor follow up surgery Assessment: as above
--- NOTE | 2023-02-04 10:39 | MHC.CM.PN ---
pt dcd home no skilled servces ordered by
--- NOTE | 2023-02-04 10:44 | MHC.CM.PN ---
pts will transport pt home
[2023-02-04 11:48] LABS: Anion Gap 14 (12-20); Blood Urea Nitrogen 7 mg/dL (9-16); Calcium 9.1 mg/dL (8.4-10.2); Carbon Dioxide 29 mmol/L (22-29); Chloride 102 mmol/L (96-108); Creatinine Clr Calc Pharmacy 106.9; Estimated Glomerular Filt Rate > 60; Glucose Random 97 mg/dL (60-115); Potassium 3.4 mmol/L (3.3-5.1); Sodium 142 mmol/L (135-145)
--- NOTE | 2023-02-04 12:13 | PM.GIPN ---
Subjective Subjective Date of Service: 02/04/23 Critical Care Time (minutes): 0 Physical Exam Vital Signs: Vital Signs: Last Vital Signs Temp 97.9 F 02/04/23 07:47 Pulse 71 02/04/23 07:47 Resp 18 02/04/23 07:47 BP 139/80 02/04/23 07:47 Pulse Ox 98 02/04/23 07:47 O2 Del Method 02/04/23 07:47 BMI result Body Mass Index 27.7 GI: Other: abd is soft and nontender Objective Data Labs 02/03/23 06:47 02/04/23 11:22 Labs: Laboratory Results - last 24 hr 02/03/23 02/03/23 02/04/23 15:30 19:23 07:49 Sodium Potassium Chloride Carbon Dioxide Anion Gap BUN Creatinine Estim Creat Clear Calc Estimated GFR POC Glucose 112 121 H 102 Random Glucose Calcium 02/04/23 11:22 Sodium 142 Potassium 3.4 Chloride 102 Carbon Dioxide 29 Anion Gap 14 BUN 7 L Creatinine 0.74 Estim Creat Clear Calc 106.9 Estimated GFR > 60 POC Glucose Random Glucose 97 Calcium 9.1 Microbiology Microbiology Results: Microbiology 01/30/23 Unknown Urine clean catch - Urine conner top Urine Culture - Final No growth. Procedures Date of Service Date of Service: 02/04/23 Progress Note: A&P Assessment and plan (1) Acute lower GI bleeding: Status: Acute Assessment and Plan: discussed management of hemorrhoids with patient Time Spent With Patient Time: Total time managing care of this patient today ____ minutes. Quality Stroke Does the patient have a stroke diagnosis?: No VTE Prior VTE?: No VTE Risk Level:: Medical - moderate - high VTE Device Contraindication: N/A - Device Ordered VTE Drug Contraindication: Treatment Not Indicated
--- NOTE | 2023-02-04 13:08 | P.CONGS_ITS ---
History of Present Illness Consult details Consult date: 02/04/23 Narrative: 57-year-old male patient with history of hypertension, diabetes, peptic ulcer disease and alcohol abuse presenting with persistent history of rectal bleeding. He was admitted on 01/30/2023 due to generalized weakness, tremors, shortness of breath and fatigue. He also had a recent history of coffee ground emesis. He underwent upper endoscopy with Dr. Persaud which revealed evidence of gastritis but no active bleeding. Colonoscopy revealed a 9 mm polyp at 50 cm which was benign. Internal hemorrhoids were identified as well. Surgical consultation was requested for management of the internal hemorrhoids. He reports daily bleeding usually after having a bowel movement. He denies a previous history of hemorrhoidal surgery. Review of Systems Review of Systems: Yes all other systems are reviewed and are negative PMFSH Social History Social History Household Members: None Housing: Apartment Do you presently have visiting nurse or other home services: No Alcohol intake: current Alcohol intake frequency: 3 or more drinks per day Alcohol type: hard liquor Patient Tobacco Use Status: Current everyday Tobacco user Tobacco use type: Cigarette Cigarettes Per Day: 10 Smoked in Last 30 Days: No e-Cigarette/Vaping Use: Never Used Second Hand Smoke Exposure: No Use of substances other than those prescribed or required for medical reasons: Yes Substance Use Type: Marijuana Substance Use Frequency: Weekly Last Used Substance: Days (ago) Currently Displaying Signs/Symptoms of Drug Intoxication Withdrawal: No Any prior treatment program specific to substance use: No Have you been hit, kicked, punched, or otherwise hurt by someone within the past year? If so, by whom?: No Do you feel safe in your current relationship?: Yes Is there a partner from a previous relationship who is making you feel unsafe now?: No Are you made to feel afraid or neglected: No Are you DNR?: No Advance Directives: No Advance Directives Information Provided: Yes Advance Directives on File: No Do you have thoughts of harming others: None Do you have a plan to hurt others: No Plan Recently lost weight without trying: No Eating poorly because of decreased appetite: No Nutrition Risks: No Nutritional Risk service: No Current occupational status: disabled Meds Allergies Allergy/AdvReac Type Severity Reaction Status Date / Time No Known Allergies Allergy Verified 01/29/23 17:33 Active Medications: Current Medications Acetaminophen (Acetaminophen 325 Mg Tablet) 650 mg PO Q6H PRN PRN Reason: Pain, Mild (Pain Scale 1-3) Last Admin: 02/03/23 22:38 Dose: 650 mg Diltiazem HCl (Diltiazem Hcl Cd 120 Mg Cap.Er.Deg) 120 mg PO DAILY [facility]; Protocol Last Admin: 02/03/23 08:26 Dose: 120 mg Ferrous Sulfate (Ferrous Sulfate 324 Mg Tablet.) 324 mg PO DAILY [facility] Last Admin: 02/03/23 08:27 Dose: 324 mg Folic Acid (Folic Acid 1 Mg Tablet) 1 mg PO DAILY [facility] Last Admin: 02/03/23 08:26 Dose: 1 mg Glucose (Glucose Gel 15 Gm Gel..Gram.) 15 gm PO Q15M PRN; Protocol PRN Reason: per Hypoglycemia Standing Ord. Hydrocortisone (Hydrocortisone 2.5 % Rectal Cr 30 Gm Tube) [address] DAILY [facility] Last Admin: 02/03/23 15:55 Dose: 1 appl Dextrose (D10) 250 mls @ 750 mls/hr IV Q15M PRN; Protocol PRN Reason: per Hypoglycemia Standing Ord. Ceftriaxone Sodium 1 gm/ (Sodium Chloride) 50 mls @ 100 mls/hr IV Q24H [facility] Last Infusion: 02/03/23 23:34 Dose: Infused Metronidazole (Flagyl) 500 mg in 100 mls @ 100 mls/hr IV Q8H [facility] Last Infusion: 02/04/23 02:54 Dose: Infused Insulin Human Lispro (Insulin Lispro 100 Unit/Ml 3 Ml Vial) 0 unit SUBCUT QIDACHS [facility]; Protocol Last Admin: 02/04/23 07:58 Dose: Not Given Omeprazole (Omeprazole 20 Mg Capsule.) 20 mg PO DAILY@0630 [facility] Last Admin: 02/04/23 05:53 Dose: 20 mg Pharmacy Consult (Consult Rx Perform Med Rec) 1 each MISCELLANE ONCE PRN PRN Reason: Consult order Pharmacy Consult (Consult Rx Etoh Phenob Im/Po) 1 each MISCELLANE ONCE PRN; Pr otocol PRN Reason: Consult order Sertraline HCl (Sertraline Hcl 25 Mg Tablet) 25 mg PO DAILY [facility] Last Admin: 02/03/23 08:26 Dose: 25 mg Sodium Chloride (0.9 % Sodium Chloride Flush 3 Ml Syringe) 3 ml IVFLUSH QSHIFT [facility] Last Admin: 02/03/23 22:42 Dose: 3 ml Home Medications Medication Instructions Recorded Confirmed Last Taken Type aspirin 81 mg tablet,delayed 81 mg PO DAILY 01/30/23 01/30/23 01/29/23 History release diltiazem HCl 120 mg 1 cap PO DAILY 01/30/23 01/30/23 01/29/23 History capsule,extended release 24 hr ferrous sulfate 324 mg (65 mg 324 mg PO DAILY 01/30/23 01/30/23 01/29/23 History iron) tablet,delayed release folic acid 1 mg tablet 1 tab PO DAILY 01/30/23 01/30/23 01/29/23 History lisinopril 20 mg tablet 1 tab PO DAILY 01/30/23 01/30/23 01/29/23 History omeprazole 40 mg capsule,delayed 1 cap PO DAILY 01/30/23 01/30/23 01/29/23 History release sertraline 25 mg tablet 1 tab PO DAILY 01/30/23 01/30/23 01/29/23 History Physical Exam Vital Signs: Vital Signs: Last Vital Signs Temp 97.9 F 02/04/23 07:47 Pulse 71 02/04/23 07:47 Resp 18 02/04/23 07:47 BP 139/80 02/04/23 07:47 Pulse Ox 98 02/04/23 07:47 O2 Del Method 02/04/23 07:47 BMI result Body Mass Index 27.7 Const: General: comfortable and no acute distress Nutritional Appearance: well nourished Orientation/consciousness: patient oriented x3 Limitations: ambulation with walker Resp: Effort & Inspection: normal respiratory effort and able to speak in complete sentences GI: Other: Rectal examination: External exam: no external thrombosed hemorrhoid, fistula, abscess, puritis, or sentinel pile Digital examination: normal sphincter tone, no tenderness, no fissure, no palpable anal mass, no gross bleeding Anoscopic examination: several mildly inflamed hemorrhoids, no active bleeding, loose greenish colored stool, no visible mass Inspection: Yes normal to inspection Palpation (GI): Soft to palpation, nontender and no guarding Skin: General skin exam: no rashes or lesions noted Neuro: General: patient oriented x3 Extrem: General: Yes normal to inspection Results Labs 02/03/23 06:47 03/18/23 11:22 Labs: Abnormal lab results 02/03/23 02/04/23 Range/Units 19:23 11:22 BUN 7 L (9-16) mg/dL POC Glucose 121 H (60-115) mg/dL BMP 02/04/23 11:22 Sodium 142 Potassium 3.4 Chloride 102 Carbon Dioxide 29 BUN 7 L Creatinine 0.74 Calcium 9.1 Urine 01/30/23 Range/Units 11:20 Urine Color Yellow Urine Appearance Clear Urine pH 6.5 (5.0-9.0) Ur Specific Mayer >= 1.030 H (1.005-1.025) Urine Protein 100 (2+) H (Neg-Trace) mg/dL Urine Glucose (UA) Negative (Negative) mg/dL All other labs normal. Assessment and Plan (1) Internal hemorrhoid: Status: Acute Plan 57 year old male patient with multiple medical problems, complaining of persistent rectal bleeding. Colonoscopy revealed a benign 9 mm polyp at 50 cm. EGD revealed only gastritis without ulceration or active bleeding. Surgical con sultation requested for possible bleeding hemorrhoids. Examination today revealed several mildly inflamed internal hemorrhoids, grade I, non-prolapsing, without ulceration or bleeding noted. No surgical intervention is required at this time. Time Spent With Patient Time: Total time managing care of this patient today ____ minutes. Procedures Date of Service Date of Service: 02/04/23
== END 2023-02-04 13:33 | disposition home or self-care (01) | DRG 378 ==
LOC: HO.ED 22:29 → HO.EDOVER 22:36 → HO.IMC 01-30 00:14
PROVIDERS: Internal Medicine; Internal Medicine Gastroenterology; Physician Assistant; Admitting Provider Student in an Organized Health Care Education/Training Program; Emergency Provider Emergency Medicine; PCP Internal Medicine; Visit Provider Internal Medicine
PROC: 0DB78ZX Excision of Stomach, Pylorus, Via Natural or Artificial Opening Endoscopic, Diagnostic (ICD-10-PCS; principal; 2023-01-31 13:10)
DX: K29.71 Gastritis, unspecified, with bleeding (principal); F10.139 Alcohol abuse with withdrawal, unspecified; F17.210 Nicotine dependence, cigarettes, uncomplicated; E87.6 Hypokalemia; Z71.6 Tobacco abuse counseling; E11.9 Type 2 diabetes mellitus without complications; K64.0 First degree hemorrhoids; K70.0 Alcoholic fatty liver; K63.5 Polyp of colon; K57.31 Diverticulosis of large intestine without perforation or abscess with bleeding; R94.31 Abnormal electrocardiogram [ECG] [EKG]; Y90.6 Blood alcohol level of 120-199 mg/100 ml; F10.129 Alcohol abuse with intoxication, unspecified; D64.9 Anemia, unspecified; Z20.822 Contact with and (suspected) exposure to COVID-19; Z79.82 Long term (current) use of aspirin; Z79.899 Other long term (current) drug therapy
CPT/HCPCS: 0241U; 36415; 71045; 71275; 74177; 80048; 80051; 80076; 80307; 81001; 81003; 82077; 82272; 82550; 82947; 83690; 83735; 83880; 84443; 84484; 85014; 85018; 85025; 85027; 85379; 85610; 85730; 87086; 88305; 88342; 93005; 96372; 97116; 97162; 99284; 99285; J0696; J2405; J2560; J3010; J3475; Q9967

== ENCOUNTER 2023-11-21 11:00 | Outpatient (REF) | payer MEDICARE, MEDICAID, SELFPAY | END 2023-11-21 11:01 | disposition home or self-care (01) | LOC: HO.MMNH2L 11:00 | PROVIDERS: Visit Provider Family Medicine | DX: Z13.89 Encounter for screening for other disorder (principal) ==

== ENCOUNTER 2023-11-27 11:00 | Outpatient (REF) | payer MEDICARE, MEDICAID, SELFPAY | END 2023-11-27 11:01 | disposition home or self-care (01) | LOC: HO.MMNH2L 11:00 | PROVIDERS: Visit Provider Family Medicine | DX: Z13.89 Encounter for screening for other disorder (principal) ==

== ENCOUNTER 2024-05-05 12:05 | Emergency (ER) | payer MEDICARE, MEDICAID, SELFPAY ==
--- NOTE | ~2024-05-05 | XR_ITS ---
EXAMINATION: XR CHEST CLINICAL INFORMATION: Fluid overload. COMPARISON: CTA chest 01/29/2023. Chest radiograph 01/29/2023. TECHNIQUE: 2 views of the chest were obtained. FINDINGS: Mildly enlarged cardiomediastinal silhouette with central vascular engorgement and diffuse interstitial prominence. No consolidation, pleural effusion or pneumothorax. No acute osseous findings. Thoracic spondylosis. XR/XR chest 2V IMPRESSION: Findings are most suggestive of pulmonary edema, although an atypical infectious/inflammatory process cannot be excluded in the appropriate clinical context. No consolidation or pleural effusion.
--- NOTE | 2024-05-05 12:07 | ED_ITS ---
HPI - General Adult General Chief complaint: General Medical Stated complaint: swollen feet Time Seen by Provider: 05/05/24 12:34 Source: patient Mode of arrival: ambulatory Limitations: no limitations History of Present Illness ED Provider: Dr. Cisco Foss HPI narrative: 58-year-old male history of GERD, anemia, hemorrhoids , hypertension who presents emergency department for evaluation of bilateral lower extremity swelling, shortness of breath, orthopnea, headache and chest tightness. Patient states he is noted increased swelling of his lower extremities over the last 2-3 days. He did see his primary care doctor who started him on a ?water pill ?but this was not helping in the swelling is gotten worse. He states that he also feels short of breath at rest and short of breath with exertion. He states that lying down flat makes him short of breath as well. The patient states that he has occasional chest tightness that can come on at rest or with exertion. He did not have any chest tightness in the last 24 hours. He denied fever or chills. He states that he has an occasional nonproductive cough. He denied nausea, vomiting, diarrhea, dark stools, black stools or bloody stools. He states he does have a hemorrhoid and he has been using hemorrhoid cream. The patient states he drinks a lot of water and Gatorade daily but can not quantify how much she drinks. Related Data Home Medications ?Medication ?Instructions ?Recorded ?Confirmed aspirin 81 mg tablet,delayed 81 mg PO DAILY 01/30/23 01/30/23 release diltiazem HCl 120 mg 1 cap PO DAILY 01/30/23 01/30/23 capsule,extended release 24 hr ferrous sulfate 324 mg (65 mg 324 mg PO DAILY 01/30/23 01/30/23 iron) tablet,delayed release folic acid 1 mg tablet 1 tab PO DAILY 01/30/23 01/30/23 lisinopril 20 mg tablet 1 tab PO DAILY 01/30/23 01/30/23 omeprazole 40 mg capsule,delayed 1 cap PO DAILY 01/30/23 01/30/23 release sertraline 25 mg tablet 1 tab PO DAILY 01/30/23 01/30/23 Previous Rx's ?Medication ?Instructions ?Recorded hydrocortisone 2.5 % topical cream 1 appl MA DAILY #1 g 02/04/23 with perineal applicator (Proctozone-HC) Allergies Allergy/AdvReac Type Severity Reaction Status Date / Time No Known Allergies Allergy Verified 05/05/24 12:15 Review of Systems 2 Review of Systems: Yes all other systems are reviewed and are negative [facility] Past Medical History [facility] Narrative: Social history: Patient does smoke 7 cigarettes per day has smoke cigarettes for many years. He does drink alcohol but states he has not drank alcohol in 6 months. He denies drug use. Social History Social History Household Members: None Housing: Apartment Do you presently have visiting nurse or other home services: No Alcohol intake: former Comment: refused bed alarm/camera, continues to Patient Tobacco Use Status: Current everyday Tobacco user Tobacco use type: Cigarette Cigarettes Per Day: 10 Smoked in Last 30 Days: Yes e-Cigarette/Vaping Use: Never Used Second Hand Smoke Exposure: No Use of substances other than those prescribed or required for medical reasons: No Substance Use Type: Marijuana Advance Directives: No Advance Directives Information Provided: Yes service: No Current occupational status: disabled Physical Exam ED Vital Signs: Vital Signs - 24 hr 05/05/24 12:12 05/05/24 13:16 05/05/24 14:49 Temperature 98 F Pulse Rate 77 66 63 Respiratory Rate 19 16 21 H Blood Pressure 153/67 H 155/82 H 164/77 H Pulse Oximetry 98 96 96 Oxygen Delivery Method Room Air Room Air Room Air BMI result Body Mass Index 32.1 Vital signs revealed an elevated blood pressure otherwise was unremarkable Exam: General: Awake, alert in no distress Head: Normocephalic, atraumatic EENT: PERRL, Lids normal, sclera normal, conjunctiva normal, nose normal , ears normal, throat without erythema or exudates Neck: Supple, no adenopathy Lung: breath sounds symmetric, no wheezing, no rhonchi. Rales at the bases Chest: symmetric movement, nontender Heart: regular rate and rhythm, normal S1, S2 no murmurs or rubs Abdomen: soft, non-tender, nondistended, normal bowel sounds Back: no vertebral tenderness, no CVAT Extremities: no deformities, moves all extremities symmetrically, trace to 1+ pitting edema bilaterally symmetric drip to just below the knees Neuro: Awake, alert, oriented, normal speech, cranial nerves intact, moves all extremities symmetrically Psych: Pleasant, cooperative Course Course Course Narrative: This is a Rapid Medical Examination (RME) performed by Yon Crockett PA-C in triage. Full HPI, ROS, assessment and treatment plan per primary provider in the Main ED. 58 yo male hx HTN here for eval of chest tightness, dizziness, and bilateral LE swelling x2 weeks. admits to associated orthopnea. Was seen by PCP who prescribed trial of lasix however was advised to come to the ED if swelling worsened. denies hx of CHF. on exam, no respiratory distress. 2+ pedal edema b/l. faint crackles to right lung base. ambulating with stead gait assisted w/ cane. Plan: ekg, labs, trop, cxr Medications Administered Discontinued Medications Generic Name Dose Route Start Last Admin Trade Name Freq PRN Reason Stop Dose Admin Furosemide 60 mg 05/05/24 13:07 05/05/24 13:41 Furosemide 100 Mg/10 Ml Vial IVPUSH 05/05/24 13:08 60 mg ONCE ONE Administration Protocol Medical Decision Making Medical Decision Making [facility] Narrative: 58-year-old male history of GERD, anemia, hemorrhoids , hypertension who presents emergency department for evaluation of bilateral lower extremity swelling, shortness of breath, orthopnea, headache and chest tightness. Patient states that he has had increased swelling to his lower extremities over the past 2-3 days. He was started on a diuretic by his PCP but he states this is not working. He has not been restricting his fluid intake. He has not noticed any dark stools, bloody stools or black stools. Vital signs revealed an elevated blood pressure. Patient's lung exam revealed rales at the bases in his extremities consistent with trace to 1+ pitting edema which is symmetric. Differential diagnosis: ?Includes but is not limited to myocardial infarction, myocardial ischemia, cardiomyopathy, anemia, kidney failure, liver failure, electrolyte abnormalities Following evaluation was ordered: CBC, CMP, troponin, BNP, COVID-19, influenza, RSV Patient was initially treated with the following: Lasix 60 mg IV Course: 16:45 My interpretation patient's laboratory evaluation as follows: Normocytic anemia with an H&H of 9.8 and 24.7. This is compared to an H&H of 9.6 and 29.2 on 11/14/2023. BUN and creatinine were normal. AST elevated 43. Alk-phos elevated 130. High sensitive troponin I was detectable but not elevated at 8.5. BNP is elevated 251. COVID-19, influenza, RSV were negative. Chest x-ray revealed increased interstitial markings consistent with mild congestive heart failure Patient had a good response to Lasix 60 mg IV and put out 3 L of urine. The patient was feeling significantly better. I did discuss the anemia with him and my concerns that he may be having a GI bleed or the anemia may be secondary to delusional fluid overload. The patient refused rectal exam and refused repeat H&H after diuresis. Since the patient had a significant diuresis is feeling better he was discharged home and advised to follow-up with his PCP for repeat H&H and further evaluation of his anemia. He was also advised to stay on a fluid restriction while he is taking his diuretic. Admission/Observation Consideration of admission/observation: Escalation of care including admission/observation considered Lab Data MDM Lab Attestation statement: I reviewed the patient's lab results. 05/05/24 13:16 05/05/24 13:16 Labs: Lab Results 05/05/24 05/05/24 05/05/24 Range/Units 13:16 13:16 13:16 WBC 9.8 (4.8-10.8) X10*3/uL RBC 2.75 L (4.60-5.80) X10*6/uL Hgb 8.0 L (14.0-18.0) g/dl Hct 24.1 L (42.0-52.0) % MCV 87.6 (80.0-98.0) fL MCH 29.1 (27.0-33.0) pg MCHC 33.2 (31.0-36.0) g/dl RDW 18.5 H (11.0-16.0) % Plt Count 368 D (160-400) X10*3/uL MPV 9.6 (9.4-12.4) fL Immature Gran % (Auto) 0.6 H (0.0-0.4) % Neut % (Auto) 66.8 (45-73) % Lymph % (Auto) 25.7 (20-40) % [place] % (Auto) 5.9 (2-11) % Eos % (Auto) 0.5 (0-4) % Baso % (Auto) 0.5 (0-2) % Lymph # (Auto) 2.5 (1.2-4.9) X10*3/uL [place] # (Auto) 0.6 (0.1-1.2) X10*3/uL Eos # (Auto) 0.1 (0.0-0.4) X10*3/uL Baso # (Auto) 0.1 (0.0-0.2) X10*3/uL Abs Immat Gran (auto) 0.06 H (0.00-0.03) X10*3/uL Absolute Neuts (auto) 6.6 (2.0-8.3) x10*3/uL Absolute Nucleated RBC 0.020 H (0.0-0.012) X10*3/uL Nucleated RBC % (auto) 0.2 (0.0-0.2) /100WBC Smear Tech's Comments VERIFIED Hold Purple Top PT (11.1-13.3) SEC INR (0.9-1.1) Sodium Cancelled 142 Potassium Cancelled 3.7 Chloride Cancelled Carbon Dioxide Anion Gap BUN Creatinine Estim Creat Clear Calc Estimated GFR Random Glucose Calcium Magnesium Total Bilirubin AST ALT Alkaline Phosphatase Troponin I High Sens B-Natriuretic Peptide (<100) pg/mL Total Protein Albumin Lipase Influenza Type A (PCR) (Negative) Influenza Type B (PCR) (Negative) RSV RNA Qual (PCR) (Negative) SARS-CoV-2 RNA (RT-PCR) (Negative) 05/05/24 05/05/24 05/05/24 Range/Units 13:16 13:16 13:16 WBC (4.8-10.8) X10*3/uL RBC (4.60-5.80) X10*6/uL Hgb (14.0-18.0) g/dl Hct (42.0-52.0) % MCV (80.0-98.0) fL MCH (27.0-33.0) pg MCHC (31.0-36.0) g/dl RDW (11.0-16.0) % Plt Count (160-400) X10*3/uL MPV (9.4-12.4) fL Immature Gran % (Auto) (0.0-0.4) % Neut % (Auto) (45-73) % Lymph % (Auto) (20-40) % [place] % (Auto) (2-11) % Eos % (Auto) (0-4) % Baso % (Auto) (0-2) % Lymph # (Auto) (1.2-4.9) X10*3/uL [place] # (Auto) (0.1-1.2) X10*3/uL Eos # (Auto) (0.0-0.4) X10*3/uL Baso # (Auto) (0.0-0.2) X10*3/uL Abs Immat Gran (auto) (0.00-0.03) X10*3/uL Absolute Neuts (auto) (2.0-8.3) x10*3/uL Absolute Nucleated RBC (0.0-0.012) X10*3/uL Nucleated RBC % (auto) (0.0-0.2) /100WBC Smear Tech's Comments Hold Purple Top PT (11.1-13.3) SEC INR (0.9-1.1) Sodium Potassium Chloride 107 Carbon Dioxide Cancelled 25 Anion Gap Cancelled 14 BUN Cancelled Creatinine Estim Creat Clear Calc Estimated GFR Random Glucose Calcium Magnesium Total Bilirubin AST ALT Alkaline Phosphatase Troponin I High Sens B-Natriuretic Peptide (<100) pg/mL Total Protein Albumin Lipase Influenza Type A (PCR) (Negative) Influenza Type B (PCR) (Negative) RSV RNA Qual (PCR) (Negative) SARS-CoV-2 RNA (RT-PCR) (Negative) 05/05/24 05/05/24 05/05/24 Range/Units 13:16 13:16 13:16 WBC (4.8-10.8) X10*3/uL RBC (4.60-5.80) X10*6/uL Hgb (14.0-18.0) g/dl Hct (42.0-52.0) % MCV (80.0-98.0) fL MCH (27.0-33.0) pg MCHC (31.0-36.0) g/dl RDW (11.0-16.0) % Plt Count (160-400) X10*3/uL MPV (9.4-12.4) fL Immature Gran % (Auto) (0.0-0.4) % Neut % (Auto) (45-73) % Lymph % (Auto) (20-40) % [place] % (Auto) (2-11) % Eos % (Auto) (0-4) % Baso % (Auto) (0-2) % Lymph # (Auto) (1.2-4.9) X10*3/uL [place] # (Auto) (0.1-1.2) X10*3/uL Eos # (Auto) (0.0-0.4) X10*3/uL Baso # (Auto) (0.0-0.2) X10*3/uL Abs Immat Gran (auto) (0.00-0.03) X10*3/uL Absolute Neuts (auto) (2.0-8.3) x10*3/uL Absolute Nucleated RBC (0.0-0.012) X10*3/uL Nucleated RBC % (auto) (0.0-0.2) /100WBC Smear Tech's Comments Hold Purple Top PT (11.1-13.3) SEC INR (0.9-1.1) Sodium Potassium Chloride Carbon Dioxide Anion Gap BUN 6 L Creatinine Cancelled 0.82 Estim Creat Clear Calc Cancelled 105.4 Estimated GFR Cancelled Random Glucose Calcium Magnesium Total Bilirubin AST ALT Alkaline Phosphatase Troponin I High Sens B-Natriuretic Peptide (<100) pg/mL Total Protein Albumin Lipase Influenza Type A (PCR) (Negative) Influenza Type B (PCR) (Negative) RSV RNA Qual (PCR) (Negative) SARS-CoV-2 RNA (RT-PCR) (Negative) 05/05/24 05/05/24 05/05/24 Range/Units 13:16 13:16 13:16 WBC (4.8-10.8) X10*3/uL RBC (4.60-5.80) X10*6/uL Hgb (14.0-18.0) g/dl Hct (42.0-52.0) % MCV (80.0-98.0) fL MCH (27.0-33.0) pg MCHC (31.0-36.0) g/dl RDW (11.0-16.0) % Plt Count (160-400) X10*3/uL MPV (9.4-12.4) fL Immature Gran % (Auto) (0.0-0.4) % Neut % (Auto) (45-73) % Lymph % (Auto) (20-40) % [place] % (Auto) (2-11) % Eos % (Auto) (0-4) % Baso % (Auto) (0-2) % Lymph # (Auto) (1.2-4.9) X10*3/uL [place] # (Auto) (0.1-1.2) X10*3/uL Eos # (Auto) (0.0-0.4) X10*3/uL Baso # (Auto) (0.0-0.2) X10*3/uL Abs Immat Gran (auto) (0.00-0.03) X10*3/uL Absolute Neuts (auto) (2.0-8.3) x10*3/uL Absolute Nucleated RBC (0.0-0.012) X10*3/uL Nucleated RBC % (auto) (0.0-0.2) /100WBC Smear Tech's Comments Hold Purple Top PT (11.1-13.3) SEC INR (0.9-1.1) Sodium Potassium Chloride Carbon Dioxide Anion Gap BUN Creatinine Estim Creat Clear Calc Estimated GFR > 60 Random Glucose Cancelled 84 Calcium Cancelled 9.0 Magnesium Cancelled Total Bilirubin AST ALT Alkaline Phosphatase Troponin I High Sens B-Natriuretic Peptide (<100) pg/mL Total Protein Albumin Lipase Influenza Type A (PCR) (Negative) Influenza Type B (PCR) (Negative) RSV RNA Qual (PCR) (Negative) SARS-CoV-2 RNA (RT-PCR) (Negative) 05/05/24 05/05/24 05/05/24 Range/Units 13:16 13:16 13:16 WBC (4.8-10.8) X10*3/uL RBC (4.60-5.80) X10*6/uL Hgb (14.0-18.0) g/dl Hct (42.0-52.0) % MCV (80.0-98.0) fL MCH (27.0-33.0) pg MCHC (31.0-36.0) g/dl RDW (11.0-16.0) % Plt Count (160-400) X10*3/uL MPV (9.4-12.4) fL Immature Gran % (Auto) (0.0-0.4) % Neut % (Auto) (45-73) % Lymph % (Auto) (20-40) % [place] % (Auto) (2-11) % Eos % (Auto) (0-4) % Baso % (Auto) (0-2) % Lymph # (Auto) (1.2-4.9) X10*3/uL [place] # (Auto) (0.1-1.2) X10*3/uL Eos # (Auto) (0.0-0.4) X10*3/uL Baso # (Auto) (0.0-0.2) X10*3/uL Abs Immat Gran (auto) (0.00-0.03) X10*3/uL Absolute Neuts (auto) (2.0-8.3) x10*3/uL Absolute Nucleated RBC (0.0-0.012) X10*3/uL Nucleated RBC % (auto) (0.0-0.2) /100WBC Smear Tech's Comments Hold Purple Top PT (11.1-13.3) SEC INR (0.9-1.1) Sodium Potassium Chloride Carbon Dioxide Anion Gap BUN Creatinine Estim Creat Clear Calc Estimated GFR Random Glucose Calcium Magnesium 1.8 Total Bilirubin Cancelled 0.3 AST Cancelled 43 H ALT Cancelled Alkaline Phosphatase Troponin I High Sens B-Natriuretic Peptide (<100) pg/mL Total Protein Albumin Lipase Influenza Type A (PCR) (Negative) Influenza Type B (PCR) (Negative) RSV RNA Qual (PCR) (Negative) SARS-CoV-2 RNA (RT-PCR) (Negative) 05/05/24 05/05/24 05/05/24 Range/Units 13:16 13:16 13:16 WBC (4.8-10.8) X10*3/uL RBC (4.60-5.80) X10*6/uL Hgb (14.0-18.0) g/dl Hct (42.0-52.0) % MCV (80.0-98.0) fL MCH (27.0-33.0) pg MCHC (31.0-36.0) g/dl RDW (11.0-16.0) % Plt Count (160-400) X10*3/uL MPV (9.4-12.4) fL Immature Gran % (Auto) (0.0-0.4) % Neut % (Auto) (45-73) % Lymph % (Auto) (20-40) % [place] % (Auto) (2-11) % Eos % (Auto) (0-4) % Baso % (Auto) (0-2) % Lymph # (Auto) (1.2-4.9) X10*3/uL [place] # (Auto) (0.1-1.2) X10*3/uL Eos # (Auto) (0.0-0.4) X10*3/uL Baso # (Auto) (0.0-0.2) X10*3/uL Abs Immat Gran (auto) (0.00-0.03) X10*3/uL Absolute Neuts (auto) (2.0-8.3) x10*3/uL Absolute Nucleated RBC (0.0-0.012) X10*3/uL Nucleated RBC % (auto) (0.0-0.2) /100WBC Smear Tech's Comments Hold Purple Top PT (11.1-13.3) SEC INR (0.9-1.1) Sodium Potassium Chloride Carbon Dioxide Anion Gap BUN Creatinine Estim Creat Clear Calc Estimated GFR Random Glucose Calcium Magnesium Total Bilirubin AST ALT 35 Alkaline Phosphatase Cancelled 130 H Troponin I High Sens B-Natriuretic Peptide (<100) pg/mL Total Protein Cancelled 7.3 Albumin Cancelled Lipase Influenza Type A (PCR) (Negative) Influenza Type B (PCR) (Negative) RSV RNA Qual (PCR) (Negative) SARS-CoV-2 RNA (RT-PCR) (Negative) 05/05/24 05/05/24 05/05/24 Range/Units 13:16 13:16 13:36 WBC (4.8-10.8) X10*3/uL RBC (4.60-5.80) X10*6/uL Hgb (14.0-18.0) g/dl Hct (42.0-52.0) % MCV (80.0-98.0) fL MCH (27.0-33.0) pg MCHC (31.0-36.0) g/dl RDW (11.0-16.0) % Plt Count (160-400) X10*3/uL MPV (9.4-12.4) fL Immature Gran % (Auto) (0.0-0.4) % Neut % (Auto) (45-73) % Lymph % (Auto) (20-40) % [place] % (Auto) (2-11) % Eos % (Auto) (0-4) % Baso % (Auto) (0-2) % Lymph # (Auto) (1.2-4.9) X10*3/uL [place] # (Auto) (0.1-1.2) X10*3/uL Eos # (Auto) (0.0-0.4) X10*3/uL Baso # (Auto) (0.0-0.2) X10*3/uL Abs Immat Gran (auto) (0.00-0.03) X10*3/uL Absolute Neuts (auto) (2.0-8.3) x10*3/uL Absolute Nucleated RBC (0.0-0.012) X10*3/uL Nucleated RBC % (auto) (0.0-0.2) /100WBC Smear Tech's Comments Hold Purple Top SEE NOTE PT 12.0 (11.1-13.3) SEC INR 1.0 (0.9-1.1) Sodium Potassium Chloride Carbon Dioxide Anion Gap BUN Creatinine Estim Creat Clear Calc Estimated GFR Random Glucose Calcium Magnesium Total Bilirubin AST ALT Alkaline Phosphatase Troponin I High Sens Cancelled B-Natriuretic Peptide (<100) pg/mL Total Protein Albumin 3.9 Lipase Cancelled 26 Influenza Type A (PCR) (Negative) Influenza Type B (PCR) (Negative) RSV RNA Qual (PCR) (Negative) SARS-CoV-2 RNA (RT-PCR) (Negative) 05/05/24 Range/Units 13:36 WBC (4.8-10.8) X10*3/uL RBC (4.60-5.80) X10*6/uL Hgb (14.0-18.0) g/dl Hct (42.0-52.0) % MCV (80.0-98.0) fL MCH (27.0-33.0) pg MCHC (31.0-36.0) g/dl RDW (11.0-16.0) % Plt Count (160-400) X10*3/uL MPV (9.4-12.4) fL Immature Gran % (Auto) (0.0-0.4) % Neut % (Auto) (45-73) % Lymph % (Auto) (20-40) % [place] % (Auto) (2-11) % Eos % (Auto) (0-4) % Baso % (Auto) (0-2) % Lymph # (Auto) (1.2-4.9) X10*3/uL [place] # (Auto) (0.1-1.2) X10*3/uL Eos # (Auto) (0.0-0.4) X10*3/uL Baso # (Auto) (0.0-0.2) X10*3/uL Abs Immat Gran (auto) (0.00-0.03) X10*3/uL Absolute Neuts (auto) (2.0-8.3) x10*3/uL Absolute Nucleated RBC (0.0-0.012) X10*3/uL Nucleated RBC % (auto) (0.0-0.2) /100WBC Smear Tech's Comments Hold Purple Top PT (11.1-13.3) SEC INR (0.9-1.1) Sodium Potassium Chloride Carbon Dioxide Anion Gap BUN Creatinine Estim Creat Clear Calc Estimated GFR Random Glucose Calcium Magnesium Total Bilirubin AST ALT Alkaline Phosphatase Troponin I High Sens 8.5 B-Natriuretic Peptide 251 H (<100) pg/mL Total Protein Albumin Lipase Influenza Type A (PCR) NEGATIVE (Negative) Influenza Type B (PCR) NEGATIVE (Negative) RSV RNA Qual (PCR) NEGATIVE (Negative) SARS-CoV-2 RNA (RT-PCR) NEGATIVE (Negative) Independent Interpretation I performed an independent interpretation of an: EKG and Plain X-Ray Interpretation: My independent interpretation of the patient's two view chest x-ray is as follows: Increased interstitial markings bilaterally consistent with mild pulmonary edema. My interpretation patient's 12 EKG done at 12:42 hours is as follows: Normal sinus rhythm with a rate of 80, normal interval, prolonged QRS interval of 100 milliseconds, prolonged QTC of 507 milliseconds, no ST segment elevation, no ST segment depression, occasional PVC, no PACs Radiology Impression Discussion of test interpretation with radiology: I have reviewed the radiologist's reading. Radiologist Impression: XR chest 2V IMPRESSION: Findings are most suggestive of pulmonary edema, although an atypical infectious/inflammatory process cannot be excluded in the appropriate clinical context. No consolidation or pleural effusion. Dictated By: Jackie Deal Chronic Conditions Patient?s care impacted by: Hypertension Critical Care Time Critical Care Time Critical Care Time: Yes Total Critical Care Time: 45 Attestation: Critical Care: The patient was critically ill with a high probability of imminent or life threatening deterioration. I spent greater than 30 minutes of discontinuous time evaluating the patient,delivering critical care at the bedside, discussing and evaluating pertinent data with consultants. Critical care time does not include time spent performing separately billable procedures or teaching. Total time spent performing critical care was 45 minutes. Discharge Plan Discharge Clinical Impression: Peripheral edema, Normocytic anemia Pulmonary edema Qualifiers: Chronicity: acute Qualified Code(s): J81.0 - Acute pulmonary edema Patient Disposition: Home, Self-Care Instructions: Pulmonary Edema (ED), Anemia (ED) Additional Instructions: Your laboratory evaluation revealed that you were anemic. Your hematocrit and hemoglobin were 8.5 and 24.1. This was compared to hematocrit and hemoglobin of 9.6 and 29.2 from 11/14/2023. Your anemia could be caused by bleeding in your gastrointestinal tract or from being fluid overloaded. Your chest x-ray did reveal fluid in your lungs (pulmonary edema). You were treated with Lasix (furosemide) 60 mg IV in you put out 3 L of urine which is encouraging. You need to continue taking your water pill as prescribed by your doctor. While your taking this water pill you need to restrict the amount of fluid that you drink so that you pee out more fluid then you taken. If you continue to drink a lot of fluid then you will give fluid overloaded again in fluid will reaccumulate in your lungs in your legs. Continue taking your medications as prescribed by your provider Follow-up with your doctor in 2 days. Please return to the emergency department if your symptoms get worse or if you develop any symptoms that are concerning to you. Prescriptions: No Action lisinopril 20 mg tablet 1 tab PO DAILY omeprazole 40 mg capsule,delayed release(DR/EC) 1 cap PO DAILY aspirin 81 mg Tablet,Delayed Release (Dr/Ec) 81 mg PO DAILY Hold Instructions: Resume on 02/10/23. sertraline 25 mg tablet 1 tab PO DAILY diltiazem HCl 120 mg capsule,extended release 24hr 1 cap PO DAILY folic acid 1 mg tablet 1 tab PO DAILY ferrous sulfate 324 mg (65 mg iron) Tablet,Delayed Release (Dr/Ec) 324 mg PO DAILY hydrocortisone [Proctozone-HC] 2.5 % Cream With Perineal Applicator 1 appl MA DAILY Qty: 1 0RF Print Language: Faroese
[2024-05-05 12:12] VITALS: BP 153/67; PULSE 77; RESP 19; TEMP 36.6; O2SAT 98; BMI 32.1
--- NOTE | 2024-05-05 12:15 | ECG_ITS ---
Test Reason : CHEST PAIN Blood Pressure : / mmHG Vent. Rate : 080 BPM Atrial Rate : 080 BPM P-R Int : 132 ms QRS Dur : 100 ms QT Int : 440 ms P-R-T Axes : 039 -23 018 degrees QTc Int : 507 ms Sinus rhythm with Premature atrial complexes with Aberrant conduction Prolonged QT Abnormal ECG When compared with ECG of 01-FEB-2023 14:34, No significant change was found Referred By: Jessi Crockett Electronically Signed By:SONU CORREIA MD
[2024-05-05 13:16] VITALS: BP 155/82; PULSE 66; RESP 16; O2SAT 96
[2024-05-05 13:23] LABS: Basophils Absolute Auto 0.1 X10*3/uL (0.0-0.2); Basophils Percent Auto 0.5 % (0-2); Eosinophils Absolute Auto 0.1 X10*3/uL (0.0-0.4); Eosinophils Percent Auto 0.5 % (0-4); Hematocrit 24.1 % (42.0-52.0); Imm Gran Abs Auto 0.06 X10*3/uL (0.00-0.03); Imm Gran Pct Auto 0.6 % (0.0-0.4); Lymphocytes Absolute Auto 2.5 X10*3/uL (1.2-4.9); Lymphocytes Percent Auto 25.7 % (20-40); MANUAL DIFF FLAG SCAN; Mean Corpuscular HGB Conc 33.2 g/dl (31.0-36.0); Mean Corpuscular Hemoglobin 29.1 pg (27.0-33.0); Mean Corpuscular Volume 87.6 fL (80.0-98.0); Monocytes Absolute Auto 0.6 X10*3/uL (0.1-1.2); Monocytes Percent Auto 5.9 % (2-11); NRBC Pct Auto 0.2 /100WBC (0.0-0.2); Neutrophils Absolute Auto 6.6 x10*3/uL (2.0-8.3); Neutrophils Percent Auto 66.8 % (45-73); PLT CLUMP 1; Red Blood Count 2.75 X10*6/uL (4.60-5.80); Red Cell Distribution Width 18.5 % (11.0-16.0); SCAN SMEAR FLAG 1
[2024-05-05] MEDS: Furosemide 100 MG/10 ML VIAL 60 MG IVPUSH (13:41)
[2024-05-05 13:42] LABS: Mean Platelet Volume 9.6 fL (9.4-12.4); Platelet Count 368 X10*3/uL (160-400); White Blood Count 9.8 X10*3/uL (4.8-10.8)
[2024-05-05 13:43] LABS: SLIDE REVIEW VERIFIED
--- NOTE | 2024-05-05 13:46 | PC.NURSE ---
Pt is alert/oriented x 4, states increased BLE edema and SOB since last week. +3 pitting noted up to knees B/L. Pt reports orthopnea. No SOB while resting in stretcher but reports LOUIE. LS with exp scatteed wheezes. NSR on monitor. Sat 95% on room air. Skin sl pale, warm and dry. Speaking full sentences. IV established, multiple attempts needed. Lasix given and urinal at bedside for I&O monitoring.
[2024-05-05 13:49] LABS: Alanine Aminotransferase 35 U/L (0-40); Albumin Level 3.9 g/dL (3.5-5.0); Alkaline Phosphatase 130 U/L (39-117); Anion Gap 14 (12-20); Aspartate Amino Transferase 43 U/L (5-37); Bilirubin Total 0.3 mg/dL (0.0-1.0); Blood Urea Nitrogen 6 mg/dL (9-16); Carbon Dioxide 25 mmol/L (22-29); Chloride 107 mmol/L (96-108); Creatinine Clr Calc Pharmacy 105.4; Estimated Glomerular Filt Rate > 60; Glucose Random 84 mg/dL (60-115); Lipase 26 U/L (8-78); Magnesium 1.8 mg/dL (1.6-2.6); Potassium 3.7 mmol/L (3.3-5.1); Sodium 142 mmol/L (135-145); Total Protein 7.3 g/dL (6.5-8.0)
[2024-05-05 14:09] LABS: B Type Natriuretic Peptide 251 pg/mL (<100)
[2024-05-05 14:12] LABS: Troponin-I High Sensitivity 8.5 ng/L (<3.5-35.0)
[2024-05-05 14:35] LABS: Influenza A PCR NEGATIVE (Negative); Influenza B PCR NEGATIVE (Negative); Resp Syncy Virus RNA Qual PCR NEGATIVE (Negative); SARS COV2 PCR INHOUSE NEGATIVE (Negative)
[2024-05-05 14:49] VITALS: BP 164/77; PULSE 63; RESP 21; O2SAT 96
--- NOTE | 2024-05-05 16:12 | PC.NURSE ---
Pt awaiting Dr Foss re evaluation. Voided approx 3000ml since Lasix given.
[2024-05-05 16:42] VITALS: BP 159/88; PULSE 78; RESP 20; TEMP -17.7; TEMP 0; O2SAT 96
== END 2024-05-05 16:44 | disposition home or self-care (01) ==
PROVIDERS: Physician Assistant Medical; Emergency Provider Emergency Medicine Emergency Medical Services; PCP Internal Medicine
DX: J81.0 Acute pulmonary edema (principal); R60.0 Localized edema; D64.9 Anemia, unspecified; I10 Essential (primary) hypertension; Z03.818 Encounter for observation for suspected exposure to other biological agents ruled out
CPT/HCPCS: 0241U; 36415; 71046; 80053; 83690; 83735; 83880; 84484; 85025; 85610; 93005; 96374; 99284; J1940

== ENCOUNTER → 2024-05-05 12:15 | Outpatient (BNV) | payer MEDICARE, MEDICAID, SELFPAY | PROVIDERS: Emergency Provider Emergency Medicine Emergency Medical Services; PCP Internal Medicine; Visit Provider Internal Medicine Cardiovascular Disease | DX: R94.31 Abnormal electrocardiogram [ECG] [EKG] (principal) | CPT/HCPCS: 93010 ==